=== PATIENT | female | born 1950 | race Two or more races ===

== ENCOUNTER 2017-12-07 22:42 | Emergency (ER) | payer MEDICARE, MEDICAID ==
[~2017-12-07] VITALS: Ht 157.5 cm; Wt 78.5 kg
[2017-12-07] MEDS ORDERED: diphenhdrAMINE HCL 25 MG CAP PO ONE ×2 (23:10→23:15)
[2017-12-07] MEDS ORDERED: cloNIDine HCL 0.1 MG TAB ONE (23:10)
[2017-12-07] MEDS ORDERED: cloNIDine HCL 0.1 MG TAB PO ONE (23:15)
[2017-12-08 00:09] LABS: Urine Bacteria FEW /hpf (None Seen); Urine Blood Negative /uL (Negative); Urine Specific Gravity 1.004 (1.001-1.035); Urine WBC <1 /hpf (0 - 5)
[2017-12-08 00:26] LABS: Basophils # (auto) 0 uL; Eosinophils # (auto) 0 uL; Eosinophils % (auto) 0.5 % (0.0-7.0); Hematocrit 41.3 % (36.0-46.0); Hemoglobin 14.2 g/dL (12.2-16.2); Lymphocytes % (auto) 26.6 % (10.0-50.0); Mean Corpuscular Hemoglobin 32.2 pg (28.0-32.0); Mean Corpuscular Hgb Conc. 34.4 g/dL (32.0-36.0); Mean Corpuscular Volume 93.6 fL (80.0-100.0); Monocytes # (auto) 0.3 uL; Neutrophils # (auto) 2.4 uL; Neutrophils % (auto) 63.9 % (37.0-80.0); Nucleated Red Blood Cells % 0.2 %; Platelet Count (auto) 129 10^3/uL (140-450); Red Blood Cells 4.41 10^6/uL (4.0-5.20); Red Cell Distribution Width 14.2 % (11.8-14.3); White Blood Cell 3.8 10^3/uL (4.4-10.8)
[2017-12-08 00:45] LABS: INR 0.92 (0.9-1.15); Partial Thromboplastin Time 28.2 sec (23.78-33.04); Prothrombin Time 9.9 sec (9.27-12.13)
[2017-12-08 02:01] LABS: Carbon Dioxide 24 mmol/L (21-32); Chloride 106 mmol/L (98-107); Potassium 3.4 mmol/L (3.5-5.1); Sodium 141 mmol/L (136-145)
[2017-12-08 02:02] LABS: Albumin 3.8 g/dL (3.4-5.0); Anion Gap 11 (5-15); Calcium 8.5 mg/dL (8.5-10.1); Glucose 188 mg/dL (74-106); Magnesium 2.2 mg/dL (1.6-2.6)
[2017-12-08 02:07] LABS: Alanine Aminotransferase 29 U/L (13-56); Alkaline Phosphatase 73 U/L (45-117); Aspartate Aminotransferase 20 U/L (15-37); BUN/Creatinine Ratio 22.6; Bilirubin, Total 0.4 mg/dL (0.2-1.0); Blood Urea Nitrogen 21 mg/dL (7-18); GFR African American 77 mL/min; GFR Non-African American 64 mL/min
[2017-12-08 05:05] VITALS: BP 115/71
[2017-12-11] MEDS ORDERED: diphenhdrAMINE HCL 25 MG CAP PO ONE (03:15)
== END 2017-12-08 04:27 | disposition home or self-care (01) ==
LOC: ER 22:55
DX: I16.0 Hypertensive urgency (principal); E11.65 Type 2 diabetes mellitus with hyperglycemia; E86.0 Dehydration; I10 Essential (primary) hypertension
CPT/HCPCS: 36415; 71045; 80053; 81001; 83735; 83880; 84484; 85025; 85379; 85610; 85730; 93005; 94761

== ENCOUNTER 2017-12-11 01:11 | Emergency (ER) | payer MEDICARE, MEDICAID ==
[~2017-12-11] VITALS: Ht 157.5 cm; Wt 78.5 kg
[2017-12-11] MEDS ORDERED: NIFEdipine 10 MG CAP PO ONE (01:45)
[2017-12-11] MEDS ORDERED: NIFEdipine 10 MG CAP ONE (01:47)
[2017-12-11] MEDS ORDERED: diphenhdrAMINE HCL 25 MG CAP PO ONE ×2 (03:08→03:15)
[2017-12-11 03:21] LABS: Basophils # (auto) 0 uL; Basophils % (auto) 0.4 % (0.0-2.0); Eosinophils # (auto) 0 uL; Eosinophils % (auto) 0.4 % (0.0-7.0); Hematocrit 46.7 % (36.0-46.0); Hemoglobin 16.5 g/dL (12.2-16.2); Lymphocytes # (auto) 1.2 uL; Lymphocytes % (auto) 17.8 % (10.0-50.0); Mean Corpuscular Hemoglobin 32.3 pg (28.0-32.0); Mean Corpuscular Hgb Conc. 35.3 g/dL (32.0-36.0); Mean Corpuscular Volume 91.4 fL (80.0-100.0); Monocytes # (auto) 0.4 uL; Monocytes % (auto) 5.6 % (0.0-12.0); Neutrophils # (auto) 5.1 uL; Neutrophils % (auto) 75.8 % (37.0-80.0); Platelet Count (auto) 153 10^3/uL (140-450); Red Blood Cells 5.11 10^6/uL (4.0-5.20); White Blood Cell 6.8 10^3/uL (4.4-10.8)
[2017-12-11 03:39] LABS: Alanine Aminotransferase 36 U/L (13-56); Albumin 4.5 g/dL (3.4-5.0); Anion Gap 12 (5-15); Aspartate Aminotransferase 34 U/L (15-37); Blood Urea Nitrogen 16 mg/dL (7-18); Calcium 9.9 mg/dL (8.5-10.1); Carbon Dioxide 25 mmol/L (21-32); Chloride 102 mmol/L (98-107); GFR African American 87 mL/min; GFR Non-African American 72 mL/min; Glucose 154 mg/dL (74-106); Magnesium 2.4 mg/dL (1.6-2.6); Potassium 3.9 mmol/L (3.5-5.1); Sodium 139 mmol/L (136-145)
[2017-12-11 03:44] LABS: Alkaline Phosphatase 80 U/L (45-117); Bilirubin, Total 0.7 mg/dL (0.2-1.0)
[2017-12-11 07:23] VITALS: BP 111/68
== END 2017-12-11 07:32 | disposition home or self-care (01) ==
LOC: ER 01:18
DX: I16.0 Hypertensive urgency (principal); E78.5 Hyperlipidemia, unspecified; Z88.1 Allergy status to other antibiotic agents
CPT/HCPCS: 36415; 80053; 83735; 83880; 84484; 85025; 93005

== ENCOUNTER 2018-06-19 14:37 | Emergency (ER) | payer MEDICARE, MEDICAID ==
[~2018-06-19] VITALS: Ht 157.5 cm; Wt 75.3 kg
[2018-06-19 14:48] VITALS: BP 133/73
[2018-06-19] MEDS ORDERED: SODIUM CHLORIDE 0.9% 2,000 ML IV ONE (15:56)
[2018-06-19 16:00] LABS: Urine WBC None Seen /hpf (0 - 5)
[2018-06-19 16:19] LABS: Urine Bacteria NONE SEEN /hpf (None Seen); Urine Blood Negative /uL (Negative); Urine Specific Gravity 1.002 (1.001-1.035)
[2018-06-19 16:37] LABS: Alanine Aminotransferase 34 U/L (13-56); Albumin 3.8 g/dL (3.4-5.0); Anion Gap 7 (5-15); Blood Urea Nitrogen 11 mg/dL (7-18); Calcium 8.7 mg/dL (8.5-10.1); Carbon Dioxide 29 mmol/L (21-32); Chloride 103 mmol/L (98-107); Glucose 90 mg/dL (74-106); Potassium 3.6 mmol/L (3.5-5.1); Sodium 139 mmol/L (136-145)
[2018-06-19 16:38] LABS: BUN/Creatinine Ratio 13.8; Bilirubin, Total 0.5 mg/dL (0.2-1.0); GFR African American 91 mL/min; GFR Non-African American 76 mL/min; Total Protein 8.1 g/dL (6.4-8.2)
[2018-06-19 16:39] LABS: INR 0.92 (0.9-1.15); Prothrombin Time 9.9 sec (9.27-12.13)
[2018-06-19 16:44] LABS: Alkaline Phosphatase 74 U/L (45-117); Aspartate Aminotransferase 35 U/L (15-37)
[2018-06-19 17:10] LABS: Basophils # (auto) 0.1 uL; Basophils % (auto) 1.3 % (0.0-2.0); Eosinophils # (auto) 0.1 uL; Eosinophils % (auto) 1.5 % (0.0-7.0); Hematocrit 46.9 % (36.0-46.0); Hemoglobin 16.3 g/dL (12.2-16.2); Lymphocytes # (auto) 1.9 uL; Lymphocytes % (auto) 42.5 % (10.0-50.0); Mean Corpuscular Hemoglobin 32.3 pg (28.0-32.0); Mean Corpuscular Hgb Conc. 34.8 g/dL (32.0-36.0); Mean Corpuscular Volume 92.9 fL (80.0-100.0); Monocytes # (auto) 0.8 uL; Monocytes % (auto) 17.3 % (0.0-12.0); Neutrophils # (auto) 1.7 uL; Neutrophils % (auto) 37.4 % (37.0-80.0); Nucleated Red Blood Cells % 0.8 %; Platelet Count (auto) 145 10^3/uL (140-450); Red Blood Cells 5.05 10^6/uL (4.0-5.20); Red Cell Distribution Width 14.2 % (11.8-14.3); White Blood Cell 4.5 10^3/uL (4.4-10.8)
== END 2018-06-19 17:44 | disposition home or self-care (01) ==
LOC: ER 14:52
DX: R11.2 Nausea with vomiting, unspecified (principal); R19.7 Diarrhea, unspecified; I10 Essential (primary) hypertension; E78.5 Hyperlipidemia, unspecified; R51 Headache; Z88.8 Allergy status to other drugs, medicaments and biological substances
CPT/HCPCS: 36415; 71046; 80053; 81001; 84484; 85025; 85610; 85730; 93005

== ENCOUNTER 2018-09-30 04:24 | Emergency (ER) | payer OTHER, MEDICAID ==
[~2018-09-30] VITALS: Ht 162.6 cm; Wt 95.3 kg
[~2018-09-30 04:24] MED LIST: ALLO300T2 PO; LISI-646 PO; OME20T PO; PROP20TA73 PO; SENN1TAB14 PO; SIMV-8 PO
[2018-09-30] MEDS ORDERED: cloNIDine HCL 0.1 MG TAB ONE (04:43)
[2018-09-30 10:02] VITALS: BP 159/100
[2018-09-30 10:52] LABS: Basophils # (auto) 0 uL; Basophils % (auto) 0.4 % (0.0-2.0); Eosinophils # (auto) 0 uL; Eosinophils % (auto) 0.5 % (0.0-7.0); Hematocrit 45.7 % (36.0-46.0); Hemoglobin 15.6 g/dL (12.2-16.2); Lymphocytes # (auto) 1.4 uL; Mean Corpuscular Hgb Conc. 34.1 g/dL (32.0-36.0); Monocytes # (auto) 0.2 uL; Monocytes % (auto) 5.4 % (0.0-12.0); Neutrophils # (auto) 2.9 uL; Neutrophils % (auto) 63.7 % (37.0-80.0); Nucleated Red Blood Cells % 0.1 %; Platelet Count (auto) 154 10^3/uL (140-450); Red Blood Cells 4.86 10^6/uL (4.0-5.20); Red Cell Distribution Width 14.1 % (11.8-14.3); White Blood Cell 4.6 10^3/uL (4.4-10.8)
[2018-09-30 11:06] LABS: Albumin 4.2 g/dL (3.4-5.0); Calcium 9.5 mg/dL (8.5-10.1); Potassium 3.7 mmol/L (3.5-5.1)
[2018-09-30 11:09] LABS: Bilirubin, Total 0.5 mg/dL (0.2-1.0); Total Protein 8.5 g/dL (6.4-8.2)
[2018-09-30] MEDS ORDERED: cloNIDine HCL 0.1 MG TAB PO ONE ×2 (12:15→12:30)
[2018-09-30] MEDS ORDERED: SODIUM CHLORIDE 0.9% 1,000 ML IV ONE (13:03)
[2018-09-30] MEDS ORDERED: IOHEXOL 350 MG/ML 100ML IJ ONE (13:15)
[2018-09-30 14:54] LABS: Urine WBC None Seen /hpf (0 - 5)
[2018-09-30 15:10] LABS: Urine Bacteria NONE SEEN /hpf (None Seen); Urine Blood Negative /uL (Negative); Urine Specific Gravity 1.007 (1.001-1.035)
== END 2018-09-30 14:52 | disposition home or self-care (01) ==
LOC: ER 04:24 → EDBD 04:24 → ER 14:52
DX: I10 Essential (primary) hypertension (principal); E78.5 Hyperlipidemia, unspecified; Z90.710 Acquired absence of both cervix and uterus; Z77.22 Contact with and (suspected) exposure to environmental tobacco smoke (acute) (chronic)
CPT/HCPCS: 36415; 71046; 71275; 80053; 81001; 85025; 93005; 99284; J7030; Q9967

== ENCOUNTER 2018-10-09 13:29 | Emergency (ER) | payer OTHER, MEDICAID ==
[~2018-10-09] VITALS: Ht 157.5 cm; Wt 68.9 kg
[2018-10-09 15:43] LABS: Basophils # (auto) 0 uL; Basophils % (auto) 0.5 % (0.0-2.0); Eosinophils # (auto) 0 uL; Eosinophils % (auto) 0.5 % (0.0-7.0); Hematocrit 46.8 % (36.0-46.0); Lymphocytes # (auto) 0.8 uL; Mean Corpuscular Hgb Conc. 34.1 g/dL (32.0-36.0); Mean Corpuscular Volume 93.7 fL (80.0-100.0); Monocytes # (auto) 0.3 uL; Monocytes % (auto) 6.4 % (0.0-12.0); Neutrophils # (auto) 3.8 uL; Neutrophils % (auto) 75.6 % (37.0-80.0); Nucleated Red Blood Cells % 0.1 %; Platelet Count (auto) 148 10^3/uL (140-450)
[2018-10-09 15:48] LABS: BUN/Creatinine Ratio 15.4; Calcium 9.4 mg/dL (8.5-10.1); Potassium 3.8 mmol/L (3.5-5.1)
[2018-10-09 15:57] LABS: Bilirubin, Total 0.6 mg/dL (0.2-1.0); Total Protein 8.1 g/dL (6.4-8.2)
[2018-10-09] MEDS ORDERED: cloNIDine HCL 0.1 MG TAB ONE (17:06)
[2018-10-09] MEDS ORDERED: cloNIDine HCL 0.1 MG TAB PO ONE (17:15)
[2018-10-09 17:57] VITALS: BP 168/88
== END 2018-10-09 17:59 | disposition home or self-care (01) ==
LOC: ER 13:32
DX: I10 Essential (primary) hypertension (principal); E78.00 Pure hypercholesterolemia, unspecified; Z79.899 Other long term (current) drug therapy; Z88.8 Allergy status to other drugs, medicaments and biological substances
CPT/HCPCS: 36415; 80053; 84484; 85025

== ENCOUNTER 2018-10-14 17:05 | Emergency (ER) | payer OTHER, MEDICAID ==
[~2018-10-14] VITALS: Ht 157.5 cm; Wt 73.9 kg
[2018-10-14 17:18] VITALS: BP 186/94
[2018-10-17] MEDS ORDERED: ASPI81TA27 PO (03:19)
[2018-10-17] MEDS ORDERED: METO25TA5 PO (03:19)
== END 2018-10-14 23:00 | disposition left against medical advice (07) ==
LOC: ER 17:12
DX: R03.0 Elevated blood-pressure reading, without diagnosis of hypertension (principal); Z53.21 Procedure and treatment not carried out due to patient leaving prior to being seen by health care provider

== ENCOUNTER 2018-10-16 01:55 | Inpatient (IN) | payer OTHER, MEDICAID | END 2018-10-20 13:06 | disposition home or self-care (01) | LOC: ER 01:55 → TELE-WESTW 10-17 02:31 → TELE 13:03 | DX: D49.7 Neoplasm of unspecified behavior of endocrine glands and other parts of nervous system (principal); E87.1 Hypo-osmolality and hyponatremia; G25.0 Essential tremor; K21.9 Gastro-esophageal reflux disease without esophagitis; E87.6 Hypokalemia; I10 Essential (primary) hypertension; E78.5 Hyperlipidemia, unspecified ==

== ENCOUNTER 2018-11-08 17:41 | Emergency (ER) | payer OTHER, MEDICAID ==
[~2018-11-08] VITALS: Ht 154.9 cm; Wt 63.5 kg
[~2018-11-08 17:41] MED LIST changes: +ASPI81TA27 PO; +METO25TA5 PO; -SIMV-8 PO
[2018-11-08 18:42] LABS: Basophils # (auto) 0 uL; Eosinophils # (auto) 0 uL; Eosinophils % (auto) 1.2 % (0.0-7.0); Hematocrit 41.8 % (36.0-46.0); Hemoglobin 14.2 g/dL (12.2-16.2); Lymphocytes # (auto) 1.2 uL; Lymphocytes % (auto) 29.7 % (10.0-50.0); Mean Corpuscular Hemoglobin 31.5 pg (28.0-32.0); Mean Corpuscular Hgb Conc. 34.1 g/dL (32.0-36.0); Mean Corpuscular Volume 92.4 fL (80.0-100.0); Monocytes # (auto) 0.3 uL; Monocytes % (auto) 7.3 % (0.0-12.0); Neutrophils # (auto) 2.5 uL; Neutrophils % (auto) 60.8 % (37.0-80.0); Nucleated Red Blood Cells % 0.1 %; Platelet Count (auto) 162 10^3/uL (140-450); Red Blood Cells 4.52 10^6/uL (4.0-5.20); Red Cell Distribution Width 13.5 % (11.8-14.3); White Blood Cell 4.1 10^3/uL (4.4-10.8)
[2018-11-08 18:55] LABS: Albumin 3.8 g/dL (3.4-5.0); Anion Gap 11 (5-15); Blood Urea Nitrogen 13 mg/dL (7-18); Calcium 8.7 mg/dL (8.5-10.1); Carbon Dioxide 27 mmol/L (21-32); Chloride 93 mmol/L (98-107); Glucose 111 mg/dL (74-106); Sodium 131 mmol/L (136-145)
[2018-11-08 18:59] LABS: Alanine Aminotransferase 24 U/L (13-56); Alkaline Phosphatase 66 U/L (45-117); Aspartate Aminotransferase 15 U/L (15-37); BUN/Creatinine Ratio 17.1; Bilirubin, Total 0.4 mg/dL (0.2-1.0); GFR African American 97 mL/min; GFR Non-African American 80 mL/min; Total Protein 7.1 g/dL (6.4-8.2)
[2018-11-08 19:20] LABS: Potassium 2.8 mmol/L (3.5-5.1)
[2018-11-08] MEDS ORDERED: PROMETHAZINE HCL 6.25 MG/5 ML ORAL SYRUP PO ONE (20:30)
[2018-11-08] MEDS ORDERED: POTASSIUM CHL 20 Meq TABLET PO ONE (20:30)
[2018-11-08 20:57] LABS: Urine Bacteria NONE SEEN /hpf (None Seen); Urine Blood Negative /uL (Negative); Urine Specific Gravity 1.005 (1.001-1.035); Urine WBC 1 /hpf (0 - 5)
[2018-11-09 01:20] VITALS: BP 117/72
== END 2018-11-09 01:34 | disposition home or self-care (01) ==
LOC: EDBD 17:41 → ER 17:48
DX: I10 Essential (primary) hypertension (principal); E78.5 Hyperlipidemia, unspecified; Z88.8 Allergy status to other drugs, medicaments and biological substances; Z88.6 Allergy status to analgesic agent; Z79.82 Long term (current) use of aspirin; Z79.899 Other long term (current) drug therapy
CPT/HCPCS: 36415; 70450; 71045; 80053; 81001; 84484; 85025

== ENCOUNTER 2018-11-09 12:35 | Emergency (ER) | payer OTHER, MEDICAID ==
[~2018-11-09] VITALS: Ht 157.5 cm; Wt 73.5 kg
[2018-11-09 13:31] LABS: Basophils # (auto) 0.1 uL; Eosinophils # (auto) 0 uL; Eosinophils % (auto) 0.9 % (0.0-7.0); Hemoglobin 15.2 g/dL (12.2-16.2); Lymphocytes # (auto) 1.1 uL; Lymphocytes % (auto) 30.2 % (10.0-50.0); Mean Corpuscular Hemoglobin 32.1 pg (28.0-32.0); Mean Corpuscular Hgb Conc. 34.4 g/dL (32.0-36.0); Mean Corpuscular Volume 93.2 fL (80.0-100.0); Monocytes # (auto) 0.3 uL; Monocytes % (auto) 8.9 % (0.0-12.0); Neutrophils # (auto) 2.1 uL; Nucleated Red Blood Cells % 0.2 %; Platelet Count (auto) 185 10^3/uL (140-450); Red Blood Cells 4.73 10^6/uL (4.0-5.20); Red Cell Distribution Width 14.2 % (11.8-14.3); White Blood Cell 3.7 10^3/uL (4.4-10.8)
[2018-11-09 13:32] LABS: Chloride 97 mmol/L (98-107); Potassium 4.3 mmol/L (3.5-5.1); Sodium 134 mmol/L (136-145)
[2018-11-09 13:35] LABS: Anion Gap 6 (5-15); Blood Urea Nitrogen 15 mg/dL (7-18); Calcium 9.4 mg/dL (8.5-10.1); Carbon Dioxide 31 mmol/L (21-32); Glucose 140 mg/dL (74-106); Magnesium 2.3 mg/dL (1.6-2.6)
[2018-11-09 13:41] LABS: Alanine Aminotransferase 26 U/L (13-56); Alkaline Phosphatase 72 U/L (45-117); Aspartate Aminotransferase 14 U/L (15-37); BUN/Creatinine Ratio 15.5; Bilirubin, Total 0.3 mg/dL (0.2-1.0); GFR African American 73 mL/min; GFR Non-African American 61 mL/min; Total Protein 7.9 g/dL (6.4-8.2)
[2018-11-09 16:05] VITALS: BP 142/77
== END 2018-11-09 16:12 | disposition home or self-care (01) ==
LOC: EDBD 12:35 → ER 12:43
DX: I10 Essential (primary) hypertension (principal); G20 Parkinson's disease; G44.209 Tension-type headache, unspecified, not intractable; D49.7 Neoplasm of unspecified behavior of endocrine glands and other parts of nervous system; E78.5 Hyperlipidemia, unspecified; Z88.6 Allergy status to analgesic agent; Z88.8 Allergy status to other drugs, medicaments and biological substances; Z79.82 Long term (current) use of aspirin
CPT/HCPCS: 36415; 80053; 83735; 84484; 85025; 93005

== ENCOUNTER 2018-12-03 17:45 | Emergency (ER) | payer OTHER, MEDICAID ==
[~2018-12-03] VITALS: Ht 157.5 cm; Wt 72.6 kg
[2018-12-03 18:49] LABS: Basophils # (auto) 0 uL; Basophils % (auto) 0.9 % (0.0-2.0); Eosinophils # (auto) 0.1 uL; Eosinophils % (auto) 1.3 % (0.0-7.0); Hematocrit 42.6 % (36.0-46.0); Hemoglobin 14.8 g/dL (12.2-16.2); Lymphocytes # (auto) 1.1 uL; Lymphocytes % (auto) 26.1 % (10.0-50.0); Mean Corpuscular Hemoglobin 32.1 pg (28.0-32.0); Mean Corpuscular Hgb Conc. 34.6 g/dL (32.0-36.0); Mean Corpuscular Volume 92.6 fL (80.0-100.0); Monocytes # (auto) 0.3 uL; Monocytes % (auto) 7.2 % (0.0-12.0); Neutrophils # (auto) 2.8 uL; Neutrophils % (auto) 64.5 % (37.0-80.0); Nucleated Red Blood Cells % 0.1 %; Platelet Count (auto) 164 10^3/uL (140-450); Red Cell Distribution Width 14.1 % (11.8-14.3); White Blood Cell 4.4 10^3/uL (4.4-10.8)
[2018-12-03 19:04] LABS: Alanine Aminotransferase 31 U/L (13-56); Albumin 3.9 g/dL (3.4-5.0); Anion Gap 10 (5-15); Blood Urea Nitrogen 18 mg/dL (7-18); Carbon Dioxide 27 mmol/L (21-32); Chloride 100 mmol/L (98-107); Glucose 111 mg/dL (74-106); Magnesium 2.7 mg/dL (1.6-2.6); Sodium 137 mmol/L (136-145)
[2018-12-03 19:09] LABS: Alkaline Phosphatase 75 U/L (45-117); Aspartate Aminotransferase 23 U/L (15-37); BUN/Creatinine Ratio 19.6; Bilirubin, Total 0.4 mg/dL (0.2-1.0); GFR African American 78 mL/min; GFR Non-African American 64 mL/min; Total Protein 7.7 g/dL (6.4-8.2)
[2018-12-03 20:08] VITALS: BP 130/98
== END 2018-12-03 20:09 | disposition home or self-care (01) ==
LOC: ER 17:45
DX: I16.0 Hypertensive urgency (principal); R07.89 Other chest pain; M19.90 Unspecified osteoarthritis, unspecified site; M10.9 Gout, unspecified; E78.5 Hyperlipidemia, unspecified; I10 Essential (primary) hypertension; Z88.8 Allergy status to other drugs, medicaments and biological substances; Z79.82 Long term (current) use of aspirin; Z79.899 Other long term (current) drug therapy
CPT/HCPCS: 36415; 71046; 80053; 83735; 84484; 85025; 93005; 94761

== ENCOUNTER 2019-01-01 23:14 | Emergency (ER) | payer OTHER, MEDICAID ==
[~2019-01-01] VITALS: Ht 157.5 cm; Wt 72.6 kg
[2019-01-01] MEDS ORDERED: cloNIDine HCL 0.1 MG TAB PO ONE (23:45)
[2019-01-01 23:55] LABS: Basophils # (auto) 0 uL; Basophils % (auto) 0.8 % (0.0-2.0); Eosinophils # (auto) 0.1 uL; Eosinophils % (auto) 0.9 % (0.0-7.0); Hematocrit 43.9 % (36.0-46.0); Hemoglobin 15.2 g/dL (12.2-16.2); Lymphocytes # (auto) 1.2 uL; Lymphocytes % (auto) 21.1 % (10.0-50.0); Mean Corpuscular Hemoglobin 31.9 pg (28.0-32.0); Mean Corpuscular Hgb Conc. 34.6 g/dL (32.0-36.0); Mean Corpuscular Volume 92.1 fL (80.0-100.0); Monocytes # (auto) 0.2 uL; Monocytes % (auto) 4.1 % (0.0-12.0); Neutrophils # (auto) 4.3 uL; Neutrophils % (auto) 73.1 % (37.0-80.0); Nucleated Red Blood Cells % 0.1 %; Platelet Count (auto) 169 10^3/uL (140-450); Red Blood Cells 4.77 10^6/uL (4.0-5.20); Red Cell Distribution Width 13.5 % (11.8-14.3); White Blood Cell 5.9 10^3/uL (4.4-10.8)
[2019-01-02 00:10] LABS: INR < 0.93 (0.9-1.15); Partial Thromboplastin Time 28.5 sec (23.64-32.05)
[2019-01-02 00:16] LABS: Anion Gap 12 (5-15); Blood Urea Nitrogen 10 mg/dL (7-18); Calcium 9.1 mg/dL (8.5-10.1); Carbon Dioxide 27 mmol/L (21-32); Chloride 93 mmol/L (98-107); Magnesium 2.4 mg/dL (1.6-2.6); Potassium 3.6 mmol/L (3.5-5.1); Sodium 132 mmol/L (136-145)
[2019-01-02 00:19] LABS: Alanine Aminotransferase 22 U/L (13-56); Aspartate Aminotransferase 18 U/L (15-37); BUN/Creatinine Ratio 12.3; GFR African American 90 mL/min; GFR Non-African American 75 mL/min; Glucose 126 mg/dL (74-106)
[2019-01-02 00:24] LABS: Alkaline Phosphatase 65 U/L (45-117); Bilirubin, Total 0.5 mg/dL (0.2-1.0); Total Protein 8.1 g/dL (6.4-8.2)
[2019-01-02 00:46] LABS: Urine WBC None Seen /hpf (0 - 5)
[2019-01-02 01:12] LABS: Urine Bacteria FEW /hpf (None Seen); Urine Blood Negative /uL (Negative); Urine Specific Gravity 1.007 (1.001-1.035)
[2019-01-02 08:46] VITALS: BP 117/72
== END 2019-01-02 08:47 | disposition home or self-care (01) ==
LOC: ER 23:26
DX: I16.0 Hypertensive urgency (principal); I10 Essential (primary) hypertension; E78.5 Hyperlipidemia, unspecified; M19.90 Unspecified osteoarthritis, unspecified site; R51 Headache; Z88.8 Allergy status to other drugs, medicaments and biological substances; Z79.82 Long term (current) use of aspirin; Z79.899 Other long term (current) drug therapy
CPT/HCPCS: 36415; 70450; 71046; 80053; 81001; 83735; 83880; 84484; 85025; 85610; 85730; 93005

== ENCOUNTER 2019-01-22 20:42 | Emergency (ER) | payer OTHER, MEDICAID ==
[~2019-01-22] VITALS: Ht 157.5 cm; Wt 73.9 kg
[~2019-01-22 20:42] MED LIST changes: +ASPI-404 PO; -ASPI81TA27 PO
[2019-01-22] MEDS ORDERED: cloNIDine HCL 0.1 MG TAB PO ONE (21:15)
[2019-01-22 21:28] LABS: Basophils # (auto) 0 uL; Basophils % (auto) 0.6 % (0.0-2.0); Eosinophils # (auto) 0.1 uL; Hematocrit 41.4 % (36.0-46.0); Hemoglobin 14.5 g/dL (12.2-16.2); Lymphocytes # (auto) 1.2 uL; Lymphocytes % (auto) 24.3 % (10.0-50.0); Mean Corpuscular Hemoglobin 32.6 pg (28.0-32.0); Monocytes # (auto) 0.3 uL; Monocytes % (auto) 5.5 % (0.0-12.0); Neutrophils # (auto) 3.4 uL; Neutrophils % (auto) 68.6 % (37.0-80.0); Nucleated Red Blood Cells % 0.1 %; Platelet Count (auto) 180 10^3/uL (140-450); Red Blood Cells 4.45 10^6/uL (4.0-5.20); Red Cell Distribution Width 13.9 % (11.8-14.3); White Blood Cell 4.9 10^3/uL (4.4-10.8)
[2019-01-22 21:36] LABS: INR < 0.93 (0.9-1.15); Partial Thromboplastin Time 27.7 sec (23.64-32.05)
[2019-01-22 21:38] LABS: Albumin 4.1 g/dL (3.4-5.0); Anion Gap 8 (5-15); Blood Urea Nitrogen 13 mg/dL (7-18); Calcium 9.4 mg/dL (8.5-10.1); Carbon Dioxide 28 mmol/L (21-32); Chloride 95 mmol/L (98-107); Glucose 116 mg/dL (74-106); Magnesium 2.3 mg/dL (1.6-2.6); Potassium 3.2 mmol/L (3.5-5.1); Sodium 131 mmol/L (136-145)
[2019-01-22 21:44] LABS: Alanine Aminotransferase 23 U/L (13-56); Alkaline Phosphatase 78 U/L (45-117); Aspartate Aminotransferase 18 U/L (15-37); BUN/Creatinine Ratio 16.7; Bilirubin, Total 0.5 mg/dL (0.2-1.0); GFR African American 94 mL/min; GFR Non-African American 78 mL/min; Total Protein 7.8 g/dL (6.4-8.2)
[2019-01-23 01:05] VITALS: BP 127/74
[2019-01-23] MEDS ORDERED: ACETAMINOPHEN 325 MG TAB PO ONE (02:45)
== END 2019-01-23 02:59 | disposition home or self-care (01) ==
LOC: ER 20:43
DX: I10 Essential (primary) hypertension (principal); R51 Headache; M19.90 Unspecified osteoarthritis, unspecified site; E78.5 Hyperlipidemia, unspecified; Z79.82 Long term (current) use of aspirin; Z79.899 Other long term (current) drug therapy; Z88.5 Allergy status to narcotic agent; Z88.8 Allergy status to other drugs, medicaments and biological substances
CPT/HCPCS: 36415; 70450; 71046; 80053; 83735; 83880; 84484; 85025; 85610; 85730; 93005

== ENCOUNTER 2019-01-27 17:14 | Emergency (ER) | payer OTHER, MEDICAID ==
[~2019-01-27] VITALS: Ht 157.5 cm; Wt 73.0 kg
[~2019-01-27 17:14] MED LIST changes: -ASPI-404 PO; +ASPI81TA27 PO
[2019-01-27 18:45] VITALS: BP 157/91
[2019-01-27] MEDS ORDERED: diphenhdrAMINE HCL 50 MG/1 ML VL IM ONE (19:30)
[2019-01-27] MEDS ORDERED: MORPHINE SULF INJ 2 MG/ML SYRINGE 1ML IM ONE (19:30)
[2019-01-27] MEDS ORDERED: AMOXICILLIN/CLAVUL 875 MG TAB PO ONE (19:30)
[2019-01-27] MEDS ORDERED: KETOROLAC TROMETH 60MG/2ML VIAL IM ONE (19:30)
[2019-01-27] MEDS ORDERED: cloNIDine HCL 0.1 MG TAB PO ONE (20:15)
== END 2019-01-27 20:40 | disposition home or self-care (01) ==
LOC: ER 17:14
DX: J01.20 Acute ethmoidal sinusitis, unspecified (principal); M19.90 Unspecified osteoarthritis, unspecified site; M10.9 Gout, unspecified; E78.5 Hyperlipidemia, unspecified; I10 Essential (primary) hypertension
CPT/HCPCS: 70450; 93005; 96372; 99284; J1200; J1885; J2270

== ENCOUNTER 2019-03-05 13:47 | Emergency (ER) | payer OTHER, MEDICAID ==
[~2019-03-05] VITALS: Ht 157.5 cm; Wt 70.8 kg
[~2019-03-05 13:47] MED LIST changes: +ASPI-404 PO; -ASPI81TA27 PO
[2019-03-05] MEDS ORDERED: KETOROLAC TROMETH 30 MG/ML 1ML VIAL IM ONE (16:45)
[2019-03-05 17:03] VITALS: BP 158/85
== END 2019-03-05 17:22 | disposition home or self-care (01) ==
LOC: ER 13:47
DX: R51 Headache (principal); M19.90 Unspecified osteoarthritis, unspecified site; M10.9 Gout, unspecified; E78.5 Hyperlipidemia, unspecified; F32.9 Major depressive disorder, single episode, unspecified; I10 Essential (primary) hypertension
CPT/HCPCS: 70450; 96372; 99284; J1885

== ENCOUNTER 2019-05-31 16:09 | Emergency (ER) | payer OTHER, MEDICAID ==
[~2019-05-31] VITALS: Ht 157.5 cm; Wt 69.9 kg
[2019-05-31 16:25] VITALS: BP 155/79
[2019-05-31] MEDS ORDERED: ACETAMINOPHEN 325 MG TAB PO ONE (17:45)
== END 2019-05-31 18:01 | disposition home or self-care (01) ==
LOC: ER 16:09
DX: R51 Headache (principal); F41.9 Anxiety disorder, unspecified; F32.9 Major depressive disorder, single episode, unspecified; E78.5 Hyperlipidemia, unspecified; I10 Essential (primary) hypertension
CPT/HCPCS: 70450

== ENCOUNTER 2019-06-25 22:14 | Emergency (ER) | payer OTHER, MEDICAID ==
[~2019-06-25] VITALS: Ht 152.4 cm; Wt 73.5 kg
[2019-06-26 00:08] LABS: Basophils # (auto) 0.1 uL; Basophils % (auto) 1.1 % (0.0-2.0); Eosinophils # (auto) 0 uL; Eosinophils % (auto) 0.1 % (0.0-7.0); Hematocrit 41.3 % (36.0-46.0); Hemoglobin 14.6 g/dL (12.2-16.2); Lymphocytes # (auto) 1.3 uL; Lymphocytes % (auto) 21.4 % (10.0-50.0); Mean Corpuscular Hemoglobin 32.1 pg (28.0-32.0); Mean Corpuscular Hgb Conc. 35.2 g/dL (32.0-36.0); Monocytes # (auto) 0.5 uL; Monocytes % (auto) 8.1 % (0.0-12.0); Neutrophils # (auto) 4.3 uL; Neutrophils % (auto) 69.3 % (37.0-80.0); Platelet Count (auto) 162 10^3/uL (140-450); Red Blood Cells 4.54 10^6/uL (4.0-5.20); White Blood Cell 6.3 10^3/uL (4.4-10.8)
[2019-06-26 00:13] LABS: Urine Bacteria FEW /hpf (None Seen); Urine Blood Negative /uL (Negative); Urine Specific Gravity 1.006 (1.001-1.035); Urine WBC <1 /hpf (0 - 5)
[2019-06-26 00:22] VITALS: BP 145/87
[2019-06-26 00:30] LABS: Albumin 3.8 g/dL (3.4-5.0); Potassium 4.4 mmol/L (3.5-5.1)
[2019-06-26] MEDS ORDERED: ACETAMINOPHEN 325 MG TAB PO ONE (00:30)
[2019-06-26 00:32] LABS: BUN/Creatinine Ratio 18.3
[2019-06-26 00:35] LABS: Bilirubin, Total 0.5 mg/dL (0.2-1.0); Total Protein 7.6 g/dL (6.4-8.2)
== END 2019-06-26 01:45 | disposition home or self-care (01) ==
LOC: EDBD 22:14 → ER 22:18
DX: R51 Headache (principal); M54.5 Low back pain; K59.00 Constipation, unspecified; R11.0 Nausea; M19.90 Unspecified osteoarthritis, unspecified site; M10.9 Gout, unspecified; E78.00 Pure hypercholesterolemia, unspecified; I10 Essential (primary) hypertension
CPT/HCPCS: 36415; 74176; 80053; 81001; 85025

== ENCOUNTER 2020-01-04 21:08 | Emergency (ER) | payer OTHER, MEDICAID ==
[~2020-01-04] VITALS: Ht 157.5 cm; Wt 72.1 kg
[~2020-01-04 21:08] MED LIST changes: -ASPI-404 PO; +ASPI-543 PO
[2020-01-04] MEDS ORDERED: ACETAMINOPHEN 325 MG TAB PO ONE (23:15)
[2020-01-04 23:33] LABS: Basophils # (auto) 0 10 ^3/uL (0-0.2); Basophils % (auto) 0.7 % (0.0-2.0); Eosinophils # (auto) 0.1 10 ^3/uL (0-0.8); Eosinophils % (auto) 1.4 % (0.0-7.0); Hematocrit 40.2 % (36.0-46.0); Lymphocytes # (auto) 1.6 10 ^3/uL (0.4-5.4); Lymphocytes % (auto) 39.7 % (10.0-50.0); Mean Corpuscular Hemoglobin 31.8 pg (28.0-32.0); Mean Corpuscular Hgb Conc. 34.9 g/dL (32.0-36.0); Mean Corpuscular Volume 91.3 fL (80.0-100.0); Monocytes # (auto) 0.4 10 ^3/uL (0-1.3); Monocytes % (auto) 9.8 % (0.0-12.0); Neutrophils # (auto) 1.9 10 ^3/uL (1.6-8.6); Neutrophils % (auto) 48.4 % (37.0-80.0); Nucleated Red Blood Cells % 0.1 %; Platelet Count (auto) 166 10^3/uL (140-450); Red Blood Cells 4.41 10^6/uL (4.0-5.20); Red Cell Distribution Width 13.6 % (11.8-14.3)
[2020-01-04 23:45] LABS: Alanine Aminotransferase 27 U/L (13-56); Albumin 3.7 g/dL (3.4-5.0); Anion Gap 8 (5-15); Aspartate Aminotransferase 19 U/L (15-37); BUN/Creatinine Ratio 20.5; Blood Urea Nitrogen 16 mg/dL (7-18); Calcium 8.7 mg/dL (8.5-10.1); Carbon Dioxide 29 mmol/L (21-32); Chloride 94 mmol/L (98-107); GFR African American 94 mL/min; GFR Non-African American 78 mL/min; Glucose 105 mg/dL (74-106); Magnesium 2.3 mg/dL (1.6-2.6); Potassium 3.2 mmol/L (3.5-5.1); Sodium 131 mmol/L (136-145)
[2020-01-04 23:48] LABS: INR 0.97 (0.9-1.15); Partial Thromboplastin Time 26.4 sec (23.64-32.05)
[2020-01-04 23:49] LABS: Alkaline Phosphatase 73 U/L (45-117); Bilirubin, Total 0.7 mg/dL (0.2-1.0); Total Protein 7.6 g/dL (6.4-8.2)
[2020-01-05 01:18] LABS: Urine Bacteria NONE SEEN /hpf (None Seen); Urine Blood Negative /uL (Negative); Urine Specific Gravity 1.007 (1.001-1.035); Urine WBC 45 /hpf (0 - 5)
[2020-01-05] MEDS ORDERED: levoFLOXacin 500 MG TAB PO ONE (02:15)
[2020-01-05] MEDS ORDERED: POTASSIUM EFFERVESENT TAB 25 MEQ PO ONE (02:15)
[2020-01-05 03:58] VITALS: BP 105/60
== END 2020-01-05 04:13 | disposition home or self-care (01) ==
LOC: ER 21:08
DX: I10 Essential (primary) hypertension (principal); R51 Headache; R00.1 Bradycardia, unspecified; M19.90 Unspecified osteoarthritis, unspecified site; M10.9 Gout, unspecified; E78.5 Hyperlipidemia, unspecified
CPT/HCPCS: 36415; 70450; 71045; 80053; 81001; 83735; 83880; 84484; 85025; 85610; 85730; 93005

== ENCOUNTER 2020-01-10 09:59 | Emergency (ER) | payer OTHER, MEDICAID ==
[~2020-01-10] VITALS: Ht 157.5 cm; Wt 70.3 kg
[~2020-01-10 09:59] MED LIST changes: +ASPI-404 PO; -ASPI-543 PO
[2020-01-10] MEDS ORDERED: SODIUM CHLORIDE 0.9% 1,000 ML IV ONE ×2 (10:08)
[2020-01-10 10:27] LABS: Basophils # (auto) 0.1 10 ^3/uL (0-0.2); Eosinophils # (auto) 0.1 10 ^3/uL (0-0.8); Eosinophils % (auto) 1.5 % (0.0-7.0); Hematocrit 43.8 % (36.0-46.0); Hemoglobin 15.2 g/dL (12.2-16.2); Lymphocytes # (auto) 1.2 10 ^3/uL (0.4-5.4); Lymphocytes % (auto) 28.9 % (10.0-50.0); Mean Corpuscular Hemoglobin 32.3 pg (28.0-32.0); Mean Corpuscular Hgb Conc. 34.8 g/dL (32.0-36.0); Mean Corpuscular Volume 92.7 fL (80.0-100.0); Monocytes # (auto) 0.4 10 ^3/uL (0-1.3); Neutrophils # (auto) 2.5 10 ^3/uL (1.6-8.6); Neutrophils % (auto) 58.6 % (37.0-80.0); Nucleated Red Blood Cells % 0.1 %; Platelet Count (auto) 168 10^3/uL (140-450); Red Blood Cells 4.72 10^6/uL (4.0-5.20); Red Cell Distribution Width 14.1 % (11.8-14.3); White Blood Cell 4.3 10^3/uL (4.4-10.8)
[2020-01-10 10:45] LABS: Urine Bacteria NONE SEEN /hpf (None Seen); Urine Blood Negative /uL (Negative); Urine Specific Gravity 1.007 (1.001-1.035); Urine WBC 3 /hpf (0 - 5)
[2020-01-10 10:48] LABS: Albumin 4.1 g/dL (3.4-5.0); Anion Gap 9 (5-15); Blood Urea Nitrogen 11 mg/dL (7-18); Carbon Dioxide 27 mmol/L (21-32); Chloride 97 mmol/L (98-107); Glucose 107 mg/dL (74-106); Lipase 122 U/L (73-393); Potassium 3.5 mmol/L (3.5-5.1); Sodium 133 mmol/L (136-145)
[2020-01-10 10:52] LABS: BUN/Creatinine Ratio 13.8; GFR African American 91 mL/min
[2020-01-10 10:53] LABS: Alanine Aminotransferase 32 U/L (13-56); Alkaline Phosphatase 66 U/L (45-117); Aspartate Aminotransferase 30 U/L (15-37); Bilirubin, Total 0.9 mg/dL (0.2-1.0); GFR Non-African American 75 mL/min; Total Protein 8.1 g/dL (6.4-8.2)
[2020-01-10 12:13] VITALS: BP 124/66
== END 2020-01-10 12:15 | disposition home or self-care (01) ==
LOC: ER 09:59
DX: N39.0 Urinary tract infection, site not specified (principal); I10 Essential (primary) hypertension; R10.9 Unspecified abdominal pain; M19.90 Unspecified osteoarthritis, unspecified site; M10.9 Gout, unspecified; E78.5 Hyperlipidemia, unspecified; Z88.5 Allergy status to narcotic agent; Z88.8 Allergy status to other drugs, medicaments and biological substances
CPT/HCPCS: 36415; 71045; 80053; 81001; 83690; 84484; 85025; 93005

== ENCOUNTER → 2020-01-17 | Emergency (ER) | payer OTHER, MEDICAID ==
[~2020-01-17] VITALS: Ht 157.5 cm; Wt 69.9 kg
[~2020-01-17] MED LIST changes: +HYDROcodone-ACET 10/325MG TAB PO ONE; +cloNIDine HCL 0.1 MG TAB PO ONE
[2020-01-17 12:09] LABS: Basophils # (auto) 0 10 ^3/uL (0-0.2); Basophils % (auto) 0.9 % (0.0-2.0); Eosinophils # (auto) 0 10 ^3/uL (0-0.8); Eosinophils % (auto) 0.5 % (0.0-7.0); Hematocrit 41.4 % (36.0-46.0); Hemoglobin 14.6 g/dL (12.2-16.2); Lymphocytes % (auto) 23.7 % (10.0-50.0); Mean Corpuscular Hemoglobin 32.4 pg (28.0-32.0); Mean Corpuscular Hgb Conc. 35.2 g/dL (32.0-36.0); Mean Corpuscular Volume 91.9 fL (80.0-100.0); Monocytes # (auto) 0.4 10 ^3/uL (0-1.3); Monocytes % (auto) 8.6 % (0.0-12.0); Neutrophils # (auto) 2.8 10 ^3/uL (1.6-8.6); Neutrophils % (auto) 66.3 % (37.0-80.0); Platelet Count (auto) 154 10^3/uL (140-450); White Blood Cell 4.2 10^3/uL (4.4-10.8)
[2020-01-17 12:29] LABS: Albumin 3.9 g/dL (3.4-5.0); Anion Gap 7 (5-15); Blood Urea Nitrogen 12 mg/dL (7-18); Calcium 8.9 mg/dL (8.5-10.1); Carbon Dioxide 28 mmol/L (21-32); Chloride 94 mmol/L (98-107); Glucose 98 mg/dL (74-106); Potassium 3.4 mmol/L (3.5-5.1); Sodium 129 mmol/L (136-145)
[2020-01-17 12:35] LABS: Alanine Aminotransferase 31 U/L (13-56); Alkaline Phosphatase 76 U/L (45-117); Aspartate Aminotransferase 20 U/L (15-37); BUN/Creatinine Ratio 16.9; Bilirubin, Total 0.6 mg/dL (0.2-1.0); GFR African American 104 mL/min; GFR Non-African American 86 mL/min; Total Protein 7.8 g/dL (6.4-8.2)
[2020-01-17 18:35] VITALS: BP 118/72
== END | disposition home or self-care (01) ==
LOC: ER 10:44
DX: I10 Essential (primary) hypertension (principal); F41.9 Anxiety disorder, unspecified; R51 Headache; E78.5 Hyperlipidemia, unspecified; Z88.8 Allergy status to other drugs, medicaments and biological substances
CPT/HCPCS: 36415; 70450; 80053; 84484; 85025; 93005

== ENCOUNTER 2020-10-04 10:37 | Emergency (ER) | payer OTHER, MEDICAID ==
[~2020-10-04] VITALS: Ht 157.5 cm; Wt 70.8 kg
[~2020-10-04 10:37] MED LIST changes: -ASPI-404 PO; +ASPI-543 PO; -HYDROcodone-ACET 10/325MG TAB PO ONE; -cloNIDine HCL 0.1 MG TAB PO ONE
[2020-10-04 10:38] VITALS: BP 132/76
[2020-10-04] MEDS ORDERED: ACETAMINOPHEN 500 MG TAB PO ONE (11:15)
[2020-10-04 11:28] LABS: Urine Bacteria NONE SEEN /hpf (None Seen); Urine Blood Negative /uL (Negative); Urine Hyaline Cast FEW /lpf (0 - 2); Urine Specific Gravity 1.018 (1.001-1.035); Urine WBC 9 /hpf (0 - 5)
[2020-10-04 12:00] LABS: Basophils # (auto) 0 10 ^3/uL (0-0.2); Basophils % (auto) 0.6 % (0.0-2.0); Eosinophils # (auto) 0 10 ^3/uL (0-0.8); Eosinophils % (auto) 0.1 % (0.0-7.0); Hematocrit 41.9 % (36.0-46.0); Hemoglobin 14.7 g/dL (12.2-16.2); Lymphocytes # (auto) 0.2 10 ^3/uL (0.4-5.4); Lymphocytes % (auto) 4.4 % (10.0-50.0); Mean Corpuscular Hgb Conc. 35.1 g/dL (32.0-36.0); Mean Corpuscular Volume 91.1 fL (80.0-100.0); Monocytes # (auto) 0.2 10 ^3/uL (0-1.3); Monocytes % (auto) 4.2 % (0.0-12.0); Neutrophils % (auto) 90.7 % (37.0-80.0); Nucleated Red Blood Cells % 0.3 %; Platelet Count (auto) 139 10^3/uL (140-450); Red Cell Distribution Width 14.2 % (11.8-14.3); White Blood Cell 5.5 10^3/uL (4.4-10.8)
[2020-10-04] MEDS ORDERED: cefTRIAXone SOD 1,000 MG VL IM ONE (12:15)
[2020-10-04 12:19] LABS: Anion Gap 9 (5-15); Blood Urea Nitrogen 16 mg/dL (7-18); Carbon Dioxide 28 mmol/L (21-32); Chloride 97 mmol/L (98-107); Glucose 120 mg/dL (74-106); Potassium 3.3 mmol/L (3.5-5.1); Sodium 134 mmol/L (136-145)
[2020-10-04 12:25] LABS: Alanine Aminotransferase 28 U/L (13-56); Alkaline Phosphatase 62 U/L (45-117); Aspartate Aminotransferase 22 U/L (15-37); BUN/Creatinine Ratio 18.8; Bilirubin, Total 0.8 mg/dL (0.2-1.0); GFR African American 85 mL/min; GFR Non-African American 70 mL/min; Total Protein 8.1 g/dL (6.4-8.2)
== END 2020-10-04 13:03 | disposition home or self-care (01) ==
LOC: ER 10:37
DX: T88.1XXA Other complications following immunization, not elsewhere classified, initial encounter (principal); N39.0 Urinary tract infection, site not specified; R07.9 Chest pain, unspecified; M54.5 Low back pain; E78.5 Hyperlipidemia, unspecified; I10 Essential (primary) hypertension; Z88.6 Allergy status to analgesic agent
CPT/HCPCS: 36415; 71046; 80053; 81001; 84484; 85025; 96372; 99284; J0696

== ENCOUNTER 2020-12-24 14:56 | Emergency (ER) | payer OTHER, MEDICAID ==
[~2020-12-24] VITALS: Ht 157.5 cm; Wt 71.2 kg
[~2020-12-24 14:56] MED LIST changes: -LISI-646 PO; +LISI20TA28 PO
[2020-12-24 18:18] LABS: Basophils # (auto) 0 10 ^3/uL (0-0.2); Basophils % (auto) 0.3 % (0.0-2.0); Eosinophils # (auto) 0 10 ^3/uL (0-0.8); Hematocrit 39.8 % (36.0-46.0); Hemoglobin 14.2 g/dL (12.2-16.2); Lymphocytes # (auto) 1.5 10 ^3/uL (0.4-5.4); Mean Corpuscular Hemoglobin 32.4 pg (28.0-32.0); Mean Corpuscular Hgb Conc. 35.6 g/dL (32.0-36.0); Mean Corpuscular Volume 90.9 fL (80.0-100.0); Monocytes # (auto) 0.4 10 ^3/uL (0-1.3); Monocytes % (auto) 13.1 % (0.0-12.0); Neutrophils # (auto) 1.5 10 ^3/uL (1.6-8.6); Neutrophils % (auto) 42.6 % (37.0-80.0); Nucleated Red Blood Cells % 0.6 %; Platelet Count (auto) 138 10^3/uL (140-450); Red Blood Cells 4.38 10^6/uL (4.0-5.20); Red Cell Distribution Width 13.6 % (11.8-14.3); White Blood Cell 3.4 10^3/uL (4.4-10.8)
[2020-12-24 18:29] LABS: Albumin 3.7 g/dL (3.4-5.0); Calcium 8.4 mg/dL (8.5-10.1); Potassium 3.4 mmol/L (3.5-5.1)
[2020-12-24 18:35] LABS: BUN/Creatinine Ratio 13.2; Bilirubin, Total 0.5 mg/dL (0.2-1.0); Total Protein 7.5 g/dL (6.4-8.2)
[2020-12-24 18:53] LABS: INR 0.97 (0.9-1.15); Partial Thromboplastin Time 31.7 sec (23.0-31.2)
[2020-12-24 23:30] VITALS: BP 138/82
[2020-12-25] MEDS ORDERED: ACETAMINOPHEN 325 MG TAB PO ONE
[2020-12-25] MEDS ORDERED: SODIUM CHLORIDE 0.9% 1,000 ML IV ONE
[2020-12-25] MEDS ORDERED: POTASSIUM CHL 20 Meq TABLET PO ONE
== END 2020-12-25 00:44 | disposition home or self-care (01) ==
LOC: ER 14:56
DX: R51.9 Headache, unspecified (principal); E86.0 Dehydration; D72.0 Genetic anomalies of leukocytes
CPT/HCPCS: 36415; 70450; 80053; 84484; 85025; 85610; 85730; 93005; 96360; 99285; J7030

== ENCOUNTER 2021-02-01 21:08 | Emergency (ER) | payer OTHER, MEDICAID ==
[~2021-02-01] VITALS: Ht 157.5 cm; Wt 70.8 kg
[2021-02-01 21:10] VITALS: BP 155/72
[2021-02-02] MEDS ORDERED: IBUPROFEN 600 MG TAB PO ONE (00:15)
[2021-02-02] MEDS ORDERED: ACETAMINOPHEN 500 MG TAB PO ONE (00:15)
[2021-02-02] MEDS ORDERED: KETOROLAC TROMETH 60MG/2ML VIAL IM ONE (00:45)
== END 2021-02-02 02:17 | disposition home or self-care (01) ==
LOC: ER 21:12
DX: S73.102A Unspecified sprain of left hip, initial encounter (principal); M79.18 Myalgia, other site; E78.5 Hyperlipidemia, unspecified; I10 Essential (primary) hypertension; Z88.6 Allergy status to analgesic agent; W07.XXXA Fall from chair, initial encounter; Y93.89 Activity, other specified; Y92.89 Other specified places as the place of occurrence of the external cause; Y99.8 Other external cause status
CPT/HCPCS: 72100; 72170; 73502; 96372; 99284; J1885

== ENCOUNTER 2021-07-02 08:45 | Inpatient (IN) | payer OTHER, MEDICAID ==
[~2021-07-02] VITALS: Ht 162.6 cm; Wt 80.4 kg
[2021-07-02 10:18] LABS: Basophils # (auto) 0 10 ^3/uL (0-0.2); Basophils % (auto) 1.3 % (0.0-2.0); Eosinophils # (auto) 0 10 ^3/uL (0-0.8); Eosinophils % (auto) 0.7 % (0.0-7.0); Hematocrit 41.5 % (36.0-46.0); Hemoglobin 14.6 g/dL (12.2-16.2); Lymphocytes # (auto) 0.9 10 ^3/uL (0.4-5.4); Lymphocytes % (auto) 26.4 % (10.0-50.0); Mean Corpuscular Hgb Conc. 35.1 g/dL (32.0-36.0); Monocytes # (auto) 0.3 10 ^3/uL (0-1.3); Monocytes % (auto) 7.9 % (0.0-12.0); Neutrophils # (auto) 2.1 10 ^3/uL (1.6-8.6); Neutrophils % (auto) 63.7 % (37.0-80.0); Red Blood Cells 4.56 10^6/uL (4.0-5.20); Red Cell Distribution Width 14.1 % (11.8-14.3); White Blood Cell 3.3 10^3/uL (4.4-10.8)
[2021-07-02 10:33] LABS: Calcium 9.5 mg/dL (8.5-10.1); Potassium 3.4 mmol/L (3.5-5.1)
[2021-07-02 10:42] LABS: BUN/Creatinine Ratio 17.6; Bilirubin, Total 0.4 mg/dL (0.2-1.0); Total Protein 8.1 g/dL (6.4-8.2)
[2021-07-02 13:24] LABS: Urine Bacteria NONE SEEN /hpf (None Seen); Urine Blood Negative /uL (Negative); Urine Specific Gravity 1.004 (1.001-1.035); Urine WBC 1 /hpf (0 - 5)
[2021-07-02] MEDS ORDERED: metroNIDAZOLE 500MG/100ML 100 ML IV ONE (14:45)
[2021-07-02] MEDS ORDERED: metroNIDAZOLE 500 MG TAB PO ONE (16:15)
[2021-07-02] MEDS ORDERED: NITROGLYCERIN 0.4 MG SL TAB SL PRN (19:15)
[2021-07-02] MEDS ORDERED: DOCUSATE CALCIUM 240 MG CAP PO PRN (19:15)
[2021-07-02] MEDS ORDERED: ONDANSETRON HCL 4 MG/2 ML VIAL IV PRN (19:15)
[2021-07-02] MEDS ORDERED: MORPHINE SULFATE INJECTION 2 MG/ML SYRG IV PRN (19:15)
[2021-07-02] MEDS ORDERED: POTASSIUM EFFERVESENT TAB 25 MEQ PO ONE (19:15)
[2021-07-02] MEDS ORDERED: LORazepam 0.5 MG TAB PO PRN (19:15)
[2021-07-02] MEDS ORDERED: hydrALAZINE HCL 20 MG/ML VL IV PRN (19:15)
[2021-07-02] MEDS: PANTOPRAZOLE 40 MG TAB PO SCH (22:01)
[2021-07-02] MEDS: ACETAMINOPHEN 500 MG TAB PO PRN (23:02)
[2021-07-03 01:35] VITALS: BP 117/74
[2021-07-03 07:58] LABS: Basophils # (auto) 0 10 ^3/uL (0-0.2); Basophils % (auto) 1.2 % (0.0-2.0); Eosinophils # (auto) 0 10 ^3/uL (0-0.8); Eosinophils % (auto) 0.7 % (0.0-7.0); Hematocrit 39.4 % (36.0-46.0); Hemoglobin 13.6 g/dL (12.2-16.2); Lymphocytes % (auto) 36.2 % (10.0-50.0); Mean Corpuscular Hemoglobin 31.4 pg (28.0-32.0); Mean Corpuscular Hgb Conc. 34.4 g/dL (32.0-36.0); Mean Corpuscular Volume 91.4 fL (80.0-100.0); Monocytes # (auto) 0.3 10 ^3/uL (0-1.3); Monocytes % (auto) 11.2 % (0.0-12.0); Neutrophils # (auto) 1.4 10 ^3/uL (1.6-8.6); Neutrophils % (auto) 50.7 % (37.0-80.0); Nucleated Red Blood Cells % 0.1 %; Red Blood Cells 4.31 10^6/uL (4.0-5.20); Red Cell Distribution Width 13.8 % (11.8-14.3); White Blood Cell 2.9 10^3/uL (4.4-10.8)
[2021-07-03 08:06] LABS: INR 1.04 (0.9-1.15)
[2021-07-03 08:17] LABS: Potassium 3.2 mmol/L (3.5-5.1)
[2021-07-03 08:29] LABS: Albumin 3.6 g/dL (3.4-5.0); BUN/Creatinine Ratio 18.6; Bilirubin, Total 0.6 mg/dL (0.2-1.0); Calcium 9.2 mg/dL (8.5-10.1); Total Protein 6.8 g/dL (6.4-8.2); Uric Acid 5.1 mg/dL (2.6-6.0)
[2021-07-03 09:00] VITALS: BP 126/79
[2021-07-03] MEDS: PANTOPRAZOLE 40 MG TAB PO SCH ×2 (09:36→22:00)
[2021-07-03] MEDS ORDERED: POTASSIUM CHL 20 Meq TABLET PO ONE ×2 (11:15→12:30)
[2021-07-03 13:00] VITALS: BP 123/82
[2021-07-03] MEDS ORDERED: GASTROGRAFIN 120 ML SOL ONE (14:01)
[2021-07-03] MEDS: ACETAMINOPHEN 500 MG TAB PO PRN (16:31)
[2021-07-03] MEDS ORDERED: LISINOPRIL 20 MG TAB PO ONE ×2 (16:45→17:00)
[2021-07-03 16:59] VITALS: BP 153/94
[2021-07-03] MEDS: SODIUM CHLORIDE 0.9% 1,000 ML IV SCH (17:12)
[2021-07-03 22:00] VITALS: BP 115/73
[2021-07-04] MEDS: SODIUM CHLORIDE 0.9% 1,000 ML IV SCH (03:06)
[2021-07-04 05:00] VITALS: BP 118/72
[2021-07-04 07:41] LABS: Basophils # (auto) 0 10 ^3/uL (0-0.2); Basophils % (auto) 1.1 % (0.0-2.0); Eosinophils # (auto) 0 10 ^3/uL (0-0.8); Eosinophils % (auto) 0.6 % (0.0-7.0); Hematocrit 38.9 % (36.0-46.0); Lymphocytes # (auto) 1.2 10 ^3/uL (0.4-5.4); Lymphocytes % (auto) 38.9 % (10.0-50.0); Mean Corpuscular Hgb Conc. 33.4 g/dL (32.0-36.0); Monocytes # (auto) 0.3 10 ^3/uL (0-1.3); Monocytes % (auto) 8.9 % (0.0-12.0); Neutrophils # (auto) 1.5 10 ^3/uL (1.6-8.6); Neutrophils % (auto) 50.5 % (37.0-80.0); Nucleated Red Blood Cells % 0.2 %; Red Blood Cells 4.19 10^6/uL (4.0-5.20)
[2021-07-04 08:00] VITALS: BP 142/92
[2021-07-04] MEDS ORDERED: diphenhdrAMINE HCL 50 MG/1 ML VL ONE (08:50)
[2021-07-04] MEDS ORDERED: LIDOCAINE VISCOUS 2% 15ML UD ONE (08:50)
[2021-07-04 09:00] VITALS: BP 142/92
[2021-07-04] MEDS: MIDAZOLAM HCL 5 MG/ML-1ML VIAL ONE ×2 (09:56→09:59)
[2021-07-04] MEDS: fentaNYL CITRATE 100 MCG/2 ML VL ONE ×2 (09:56→09:59)
[2021-07-04] MEDS ORDERED: LISINOPRIL 20 MG TAB PO SCH ×2 (10:00)
[2021-07-04] MEDS ORDERED: SODIUM CHLORIDE 0.9% 1,000 ML IV SCH (12:00)
[2021-07-04 13:19] LABS: BUN/Creatinine Ratio 10.6; Calcium 8.4 mg/dL (8.5-10.1)
[2021-07-04 13:22] LABS: Potassium 3.9 mmol/L (3.5-5.1)
[2021-07-04 17:04] VITALS: BP 129/76
== END 2021-07-04 18:00 | disposition home or self-care (01) | DRG 379 ==
LOC: ER 08:45 → TELE 19:12 → TELE-WESTW 23:39
PROVIDERS: ADMIT Family Medicine; ATTEND Internal Medicine
PROC: 0DJ08ZZ Inspection of Upper Intestinal Tract, Via Natural or Artificial Opening Endoscopic (ICD-10-PCS; principal; 2021-07-04 09:52)
DX: K57.91 Diverticulosis of intestine, part unspecified, without perforation or abscess with bleeding (principal); K80.20 Calculus of gallbladder without cholecystitis without obstruction; K52.9 Noninfective gastroenteritis and colitis, unspecified; E87.6 Hypokalemia; R73.9 Hyperglycemia, unspecified; D72.819 Decreased white blood cell count, unspecified; E78.5 Hyperlipidemia, unspecified; I10 Essential (primary) hypertension; Z20.822 Contact with and (suspected) exposure to COVID-19; F32.A Depression, unspecified; F41.9 Anxiety disorder, unspecified; M10.9 Gout, unspecified; Z88.8 Allergy status to other drugs, medicaments and biological substances; Z88.5 Allergy status to narcotic agent; Z79.899 Other long term (current) drug therapy; Z83.3 Family history of diabetes mellitus
CPT/HCPCS: 36415; 74176; 74270; 76856; 80048; 80053; 81001; 82270; 83036; 83605; 84443; 84484; 84550; 85025; 85610; 87040; 87426; 93005; 97116; 97163; 97530; G0378; J2250

== ENCOUNTER 2021-10-19 12:54 | Emergency (ER) | payer OTHER, MEDICAID ==
[~2021-10-19] VITALS: Ht 157.5 cm; Wt 72.6 kg
[2021-10-19 14:48] VITALS: BP 154/85
== END 2021-10-19 16:17 | disposition home or self-care (01) ==
LOC: ER 12:54
DX: S00.03XA Contusion of scalp, initial encounter (principal); E78.5 Hyperlipidemia, unspecified; I10 Essential (primary) hypertension; W18.00XA Striking against unspecified object with subsequent fall, initial encounter; Y93.89 Activity, other specified; Y92.89 Other specified places as the place of occurrence of the external cause; Y99.8 Other external cause status
CPT/HCPCS: 70450

== ENCOUNTER 2021-11-11 22:37 | Emergency (ER) | payer OTHER, MEDICAID ==
[~2021-11-11] VITALS: Ht 157.5 cm; Wt 72.6 kg
[2021-11-11] MEDS ORDERED: amLODIPine BESYLATE 5 MG TAB PO ONE (23:00)
[2021-11-11] MEDS ORDERED: hydrALAZINE HCL 20 MG/ML VL IV ONE (23:00)
[2021-11-11 23:45] LABS: Basophils # (auto) 0.2 10 ^3/uL (0-0.2); Basophils % (auto) 3.2 % (0.0-2.0); Eosinophils # (auto) 0.2 10 ^3/uL (0-0.8); Eosinophils % (auto) 3.3 % (0.0-7.0); Hematocrit 40.6 % (36.0-46.0); Hemoglobin 14.2 g/dL (12.2-16.2); Lymphocytes # (auto) 1.2 10 ^3/uL (0.4-5.4); Lymphocytes % (auto) 23.5 % (10.0-50.0); Mean Corpuscular Hemoglobin 32.4 pg (28.0-32.0); Mean Corpuscular Volume 92.6 fL (80.0-100.0); Monocytes # (auto) 0.3 10 ^3/uL (0-1.3); Monocytes % (auto) 5.1 % (0.0-12.0); Neutrophils # (auto) 3.3 10 ^3/uL (1.6-8.6); Neutrophils % (auto) 64.9 % (37.0-80.0); Nucleated Red Blood Cells % 0.2 %; Red Blood Cells 4.38 10^6/uL (4.0-5.20); Red Cell Distribution Width 13.5 % (11.8-14.3); White Blood Cell 5.1 10^3/uL (4.4-10.8)
[2021-11-12 00:03] LABS: Albumin 3.7 g/dL (3.4-5.0); Calcium 9.4 mg/dL (8.5-10.1); Potassium 3.9 mmol/L (3.5-5.1)
[2021-11-12 00:06] LABS: Bilirubin, Total 0.4 mg/dL (0.2-1.0); Total Protein 7.3 g/dL (6.4-8.2)
[2021-11-12 00:49] VITALS: BP 161/86
[2021-11-12] MEDS ORDERED: ACETAMINOPHEN 325 MG TAB PO ONE (01:15)
== END 2021-11-12 01:42 | disposition home or self-care (01) ==
LOC: ER 22:37
DX: I16.0 Hypertensive urgency (principal); E78.5 Hyperlipidemia, unspecified; I10 Essential (primary) hypertension; M10.9 Gout, unspecified; Z88.6 Allergy status to analgesic agent; Z88.8 Allergy status to other drugs, medicaments and biological substances
CPT/HCPCS: 36415; 70450; 71045; 80053; 83880; 84484; 85025; 93005; 96374; 99285; J0360

== ENCOUNTER 2022-01-16 18:30 | Emergency (ER) | payer OTHER, MEDICAID ==
[~2022-01-16] VITALS: Ht 157.5 cm; Wt 72.6 kg
[2022-01-16] MEDS ORDERED: ACETAMINOPHEN 325 MG TAB PO ONE (20:30)
[2022-01-16] MEDS ORDERED: NAPROXEN 500 MG TAB PO ONE (22:15)
[2022-01-16 23:11] LABS: Basophils # (auto) 0 10 ^3/uL (0-0.2); Basophils % (auto) 1.2 % (0.0-2.0); Eosinophils # (auto) 0.1 10 ^3/uL (0-0.8); Eosinophils % (auto) 1.5 % (0.0-7.0); Hematocrit 40.5 % (36.0-46.0); Hemoglobin 13.8 g/dL (12.2-16.2); Lymphocytes # (auto) 1.4 10 ^3/uL (0.4-5.4); Lymphocytes % (auto) 35.7 % (10.0-50.0); Mean Corpuscular Hemoglobin 31.4 pg (28.0-32.0); Mean Corpuscular Hgb Conc. 34.1 g/dL (32.0-36.0); Mean Corpuscular Volume 92.1 fL (80.0-100.0); Monocytes # (auto) 0.2 10 ^3/uL (0-1.3); Monocytes % (auto) 6.3 % (0.0-12.0); Neutrophils # (auto) 2.1 10 ^3/uL (1.6-8.6); Neutrophils % (auto) 55.3 % (37.0-80.0); Nucleated Red Blood Cells % 0.1 %; Red Cell Distribution Width 13.7 % (11.8-14.3); White Blood Cell 3.8 10^3/uL (4.4-10.8)
[2022-01-16 23:23] LABS: Albumin 3.8 g/dL (3.4-5.0); CRP High Sensitivity 0.8 mg/dL (< 0.3); Potassium 3.3 mmol/L (3.5-5.1)
[2022-01-16 23:27] LABS: Bilirubin, Total 0.3 mg/dL (0.2-1.0); Total Protein 7.8 g/dL (6.4-8.2)
[2022-01-17] MEDS ORDERED: POTASSIUM EFFERVESENT TAB 25 MEQ PO ONE (00:15)
[2022-01-17 00:46] VITALS: BP 153/87
== END 2022-01-17 00:49 | disposition home or self-care (01) ==
LOC: ER 18:30
DX: R51.9 Headache, unspecified (principal); I10 Essential (primary) hypertension; E78.5 Hyperlipidemia, unspecified; M10.9 Gout, unspecified
CPT/HCPCS: 36415; 70450; 80053; 85025; 85652; 86141; 93005

== ENCOUNTER 2022-05-13 18:43 | Emergency (ER) | payer OTHER, MEDICAID ==
[~2022-05-13] VITALS: Ht 157.5 cm; Wt 75.0 kg
[2022-05-13 20:19] LABS: Basophils # (auto) 0.1 10 ^3/uL (0-0.2); Basophils % (auto) 0.7 % (0.0-2.0); Eosinophils # (auto) 0.1 10 ^3/uL (0-0.8); Hematocrit 44.2 % (36.0-46.0); Lymphocytes # (auto) 1.2 10 ^3/uL (0.4-5.4); Lymphocytes % (auto) 15.6 % (10.0-50.0); Mean Corpuscular Hemoglobin 32.5 pg (28.0-32.0); Mean Corpuscular Hgb Conc. 36.1 g/dL (32.0-36.0); Mean Corpuscular Volume 89.8 fL (80.0-100.0); Monocytes # (auto) 0.5 10 ^3/uL (0-1.3); Neutrophils # (auto) 6.1 10 ^3/uL (1.6-8.6); Neutrophils % (auto) 76.7 % (37.0-80.0); Red Blood Cells 4.92 10^6/uL (4.0-5.20); Red Cell Distribution Width 13.8 % (11.8-14.3)
[2022-05-13 20:46] LABS: Albumin 3.8 g/dL (3.4-5.0); BUN/Creatinine Ratio 15.8; Calcium 9.1 mg/dL (8.5-10.1); Lactic Acid w/Reflex 2.4 mmol/L (0.4-2.0); Magnesium 2.1 mg/dL (1.6-2.6)
[2022-05-13 20:59] LABS: Bilirubin, Total 0.3 mg/dL (0.2-1.0); Total Protein 7.5 g/dL (6.4-8.2)
[2022-05-13 21:07] LABS: Potassium 2.9 mmol/L (3.5-5.1)
[2022-05-13] MEDS ORDERED: SODIUM CHLORIDE 0.9% 1,000 ML IV ONE (22:15)
[2022-05-13] MEDS ORDERED: FLEET ENEMA(ADULT) 135 ML PR ONE (22:15)
[2022-05-13] MEDS ORDERED: GOLYTELY 4L KIT PO ONE (22:15)
[2022-05-13] MEDS ORDERED: ACETAMINOPHEN 325 MG TAB PO ONE (22:15)
[2022-05-13] MEDS ORDERED: POTASSIUM CHL 20 Meq TABLET PO ONE (22:15)
[2022-05-14 00:29] VITALS: BP 168/95
[2022-05-14] MEDS ORDERED: DOCUSATE SOD 100 MG CAP PO ONE (01:00)
== END 2022-05-14 04:20 | disposition home or self-care (01) ==
LOC: ER 18:43 → EDUNIT# 18:43 → EDBD 18:43 → ER 05-14 04:20
DX: K56.41 Fecal impaction (principal); E87.6 Hypokalemia; R42 Dizziness and giddiness
CPT/HCPCS: 36415; 70450; 74176; 80053; 83605; 83690; 83735; 84484; 85025; 93005; 96360; 99285; J7030

== ENCOUNTER 2022-06-25 15:25 | Emergency (ER) | payer OTHER, MEDICAID ==
[~2022-06-25] VITALS: Ht 157.5 cm; Wt 73.6 kg
[2022-06-25 17:13] LABS: Basophils # (auto) 0.1 10 ^3/uL (0-0.2); Basophils % (auto) 0.8 % (0.0-2.0); Eosinophils # (auto) 0 10 ^3/uL (0-0.8); Eosinophils % (auto) 0.6 % (0.0-7.0); Hemoglobin 15.1 g/dL (12.2-16.2); Lymphocytes # (auto) 0.8 10 ^3/uL (0.4-5.4); Mean Corpuscular Hemoglobin 31.1 pg (28.0-32.0); Mean Corpuscular Hgb Conc. 33.6 g/dL (32.0-36.0); Mean Corpuscular Volume 92.6 fL (80.0-100.0); Monocytes # (auto) 0.6 10 ^3/uL (0-1.3); Monocytes % (auto) 9.5 % (0.0-12.0); Neutrophils # (auto) 4.6 10 ^3/uL (1.6-8.6); Neutrophils % (auto) 76.1 % (37.0-80.0); Red Blood Cells 4.86 10^6/uL (4.0-5.20); Red Cell Distribution Width 14.3 % (11.8-14.3)
[2022-06-25] MEDS ORDERED: IBUPROFEN 400 MG TAB PO ONE (17:15)
[2022-06-25] MEDS ORDERED: ACETAMINOPHEN 325 MG TAB PO ONE (17:15)
[2022-06-25 17:29] LABS: Albumin 4.1 g/dL (3.4-5.0); BUN/Creatinine Ratio 14.7; Calcium 9.6 mg/dL (8.5-10.1); Potassium 3.5 mmol/L (3.5-5.1)
[2022-06-25 18:33] LABS: Bilirubin, Total 0.4 mg/dL (0.2-1.0); Total Protein 8.1 g/dL (6.4-8.2)
[2022-06-25 20:32] VITALS: BP 132/67
== END 2022-06-25 20:35 | disposition home or self-care (01) ==
LOC: ER 15:27
DX: U07.1 COVID-19 (principal); B34.9 Viral infection, unspecified; R51.9 Headache, unspecified; I10 Essential (primary) hypertension; E78.5 Hyperlipidemia, unspecified; M10.9 Gout, unspecified; Z79.82 Long term (current) use of aspirin; Z79.899 Other long term (current) drug therapy; Z88.8 Allergy status to other drugs, medicaments and biological substances
CPT/HCPCS: 36415; 71045; 80053; 85025; 87426; 87804

== ENCOUNTER 2022-12-16 09:16 | Emergency (ER) | payer OTHER, MEDICAID ==
[~2022-12-16] VITALS: Ht 157.5 cm; Wt 74.5 kg
[~2022-12-16 09:16] MED LIST changes: -LISI20TA28 PO; +LISI20TA56 PO; +PROP1TAB53 PO; -PROP20TA73 PO
[2022-12-16 10:01] LABS: Basophils # (auto) 0 10 ^3/uL (0-0.2); Basophils % (auto) 1.1 % (0.0-2.0); Eosinophils # (auto) 0.1 10 ^3/uL (0-0.8); Eosinophils % (auto) 1.6 % (0.0-7.0); Hematocrit 42.9 % (36.0-46.0); Hemoglobin 14.9 g/dL (12.2-16.2); Lymphocytes # (auto) 1.4 10 ^3/uL (0.4-5.4); Lymphocytes % (auto) 37.3 % (10.0-50.0); Mean Corpuscular Hemoglobin 31.9 pg (28.0-32.0); Mean Corpuscular Hgb Conc. 34.8 g/dL (32.0-36.0); Mean Corpuscular Volume 91.6 fL (80.0-100.0); Monocytes # (auto) 0.3 10 ^3/uL (0-1.3); Monocytes % (auto) 8.1 % (0.0-12.0); Neutrophils % (auto) 51.9 % (37.0-80.0); Nucleated Red Blood Cells % 0.3 %; Red Blood Cells 4.68 10^6/uL (4.0-5.20); Red Cell Distribution Width 14.4 % (11.8-14.3); White Blood Cell 3.8 10^3/uL (4.4-10.8)
[2022-12-16 10:19] LABS: Albumin 4.3 g/dL (3.4-5.0); Calcium 9.3 mg/dL (8.5-10.1); Potassium 3.1 mmol/L (3.5-5.1)
[2022-12-16 10:23] LABS: BUN/Creatinine Ratio 15.4 (10.0-20.0); Bilirubin, Total 0.5 mg/dL (0.2-1.0); Total Protein 7.7 g/dL (6.4-8.2)
[2022-12-16] MEDS ORDERED: PRIM50TA5 PO (12:11)
[2022-12-16] MEDS ORDERED: POTASSIUM CHL 20 Meq TABLET PO ONE (12:15)
[2022-12-16] MEDS ORDERED: POTASSIUM CHL 20MEQ/100ML 100 ML IV ONE (12:15)
[2022-12-16 15:45] VITALS: BP 187/83
[2022-12-16] MEDS ORDERED: ACETAMINOPHEN 325 MG TAB PO ONE (16:00)
== END 2022-12-16 16:08 | disposition home or self-care (01) ==
LOC: ER 09:16
DX: R00.2 Palpitations (principal); E87.6 Hypokalemia; R07.9 Chest pain, unspecified; I10 Essential (primary) hypertension; Z88.6 Allergy status to analgesic agent
CPT/HCPCS: 36415; 71045; 80053; 83735; 83880; 84484; 85025; 93005; 96365; 96366; 99285; J3480

== ENCOUNTER 2022-12-18 18:24 | Emergency (ER) | payer OTHER, MEDICAID ==
[~2022-12-18] VITALS: Ht 152.4 cm; Wt 68.1 kg
[~2022-12-18 18:24] MED LIST changes: +PRIM50TA5 PO
[2022-12-18 18:54] LABS: Basophils # (auto) 0 10 ^3/uL (0-0.2); Basophils % (auto) 0.9 % (0.0-2.0); Eosinophils # (auto) 0 10 ^3/uL (0-0.8); Hematocrit 41.2 % (36.0-46.0); Hemoglobin 14.5 g/dL (12.2-16.2); Lymphocytes # (auto) 1.3 10 ^3/uL (0.4-5.4); Lymphocytes % (auto) 28.4 % (10.0-50.0); Mean Corpuscular Hemoglobin 32.1 pg (28.0-32.0); Mean Corpuscular Hgb Conc. 35.2 g/dL (32.0-36.0); Mean Corpuscular Volume 91.4 fL (80.0-100.0); Monocytes # (auto) 0.3 10 ^3/uL (0-1.3); Monocytes % (auto) 6.8 % (0.0-12.0); Neutrophils # (auto) 2.9 10 ^3/uL (1.6-8.6); Neutrophils % (auto) 62.9 % (37.0-80.0); Nucleated Red Blood Cells % 0.1 %; Red Blood Cells 4.51 10^6/uL (4.0-5.20); Red Cell Distribution Width 13.7 % (11.8-14.3); White Blood Cell 4.6 10^3/uL (4.4-10.8)
[2022-12-18 19:10] LABS: INR 0.92 (0.9-1.15); Partial Thromboplastin Time 30.3 sec (24.6-33.4)
[2022-12-18 20:09] LABS: Albumin 3.9 g/dL (3.4-5.0); Calcium 8.8 mg/dL (8.5-10.1); Magnesium 2.2 mg/dL (1.6-2.6); Potassium 3.3 mmol/L (3.5-5.1)
[2022-12-18 20:12] LABS: BUN/Creatinine Ratio 20.6 (10.0-20.0); Bilirubin, Total 0.2 mg/dL (0.2-1.0); Total Protein 7.7 g/dL (6.4-8.2)
[2022-12-18] MEDS ORDERED: ALPRAZolam 0.5 MG TAB PO ONE (21:15)
[2022-12-18] MEDS ORDERED: POTASSIUM EFFERVESENT TAB 25 MEQ PO ONE (22:30)
[2022-12-18 23:28] VITALS: BP 161/84
== END 2022-12-18 23:41 | disposition home or self-care (01) ==
LOC: EDBD 18:24 → ER 18:24
DX: F41.9 Anxiety disorder, unspecified (principal); E87.1 Hypo-osmolality and hyponatremia; E87.6 Hypokalemia; E11.65 Type 2 diabetes mellitus with hyperglycemia; E86.0 Dehydration; R79.89 Other specified abnormal findings of blood chemistry; M19.90 Unspecified osteoarthritis, unspecified site; F32.9 Major depressive disorder, single episode, unspecified; E78.5 Hyperlipidemia, unspecified; I10 Essential (primary) hypertension; Z88.5 Allergy status to narcotic agent; Z88.8 Allergy status to other drugs, medicaments and biological substances
CPT/HCPCS: 36415; 71045; 80053; 83735; 83880; 84484; 85025; 85610; 85730; 93005

== ENCOUNTER 2024-02-24 17:32 | Emergency (ER) | payer OTHER, MEDICAID ==
[~2024-02-24] VITALS: Ht 157.5 cm; Wt 78.1 kg
[2024-02-24 19:04] LABS: Basophils # (auto) 0.1 10 ^3/uL (0-0.2); Basophils % (auto) 1.3 % (0.0-2.0); Eosinophils # (auto) 0.1 10 ^3/uL (0-0.8); Eosinophils % (auto) 2.7 % (0.0-7.0); Hematocrit 39.4 % (36.0-46.0); Hemoglobin 13.8 g/dL (12.2-16.2); Lymphocytes # (auto) 1.5 10 ^3/uL (0.4-5.4); Lymphocytes % (auto) 34.9 % (10.0-50.0); Mean Corpuscular Hemoglobin 32.1 pg (28.0-32.0); Mean Corpuscular Volume 91.6 fL (80.0-100.0); Monocytes # (auto) 0.4 10 ^3/uL (0-1.3); Monocytes % (auto) 8.5 % (0.0-12.0); Neutrophils # (auto) 2.3 10 ^3/uL (1.6-8.6); Neutrophils % (auto) 52.6 % (37.0-80.0); Nucleated Red Blood Cells % 0.1 %; Red Cell Distribution Width 14.3 % (11.8-14.3); White Blood Cell 4.4 10^3/uL (4.4-10.8)
[2024-02-24 19:13] LABS: Chloride 101 mmol/L (98-107); Potassium 3.2 mmol/L (3.5-5.1); Sodium 136 mmol/L (136-145)
[2024-02-24 19:14] LABS: Anion Gap 8 (5-15); Calcium 9.5 mg/dL (8.7-10.4); Carbon Dioxide 27 mmol/L (20-30)
[2024-02-24 19:19] LABS: BUN/Creatinine Ratio 16.1 (10.0-20.0); Blood Urea Nitrogen 14 mg/dL (9-23); Glucose 124 mg/dL (74-106)
[2024-02-24] MEDS: ALPRAZolam 0.25 MG TAB PO ONE (19:32)
[2024-02-24] MEDS: MECLIZINE HCL 25 MG TAB PO ONE (19:32)
[2024-02-24] MEDS: ONDANSETRON ODT 4 MG TAB PO ONE (19:32)
[2024-02-24 19:35] VITALS: BP 113/68; PULSE 65; RESP 18; TEMP 98.2; O2SAT 96
[2024-02-24] MEDS ORDERED: ZOFR4T PO (20:25)
[2024-02-24] MEDS ORDERED: ALPR0.25 PO (20:25)
[2024-02-24] MEDS ORDERED: MECL1TAB42 PO (20:25)
== END 2024-02-24 22:06 | disposition home or self-care (01) ==
LOC: ER 17:46
DX: H81.10 Benign paroxysmal vertigo, unspecified ear (principal); I10 Essential (primary) hypertension; E78.5 Hyperlipidemia, unspecified; M10.9 Gout, unspecified; F41.9 Anxiety disorder, unspecified; F32.9 Major depressive disorder, single episode, unspecified; M19.90 Unspecified osteoarthritis, unspecified site; Z98.890 Other specified postprocedural states
CPT/HCPCS: 36415; 70450; 80048; 85025; 93005; 99284; J8597; Q0162

== ENCOUNTER 2024-09-18 12:19 | Emergency (ER) | payer OTHER, MEDICAID ==
[~2024-09-18] VITALS: Ht 157.5 cm; Wt 72.1 kg
[~2024-09-18 12:19] MED LIST changes: +ALPR0.25 PO; +MECL1TAB42 PO; +ZOFR4T PO
[2024-09-18 13:38] VITALS: BP 129/59; PULSE 69; RESP 19; TEMP 98; O2SAT 96
[2024-09-18 14:24] LABS: Urine Bacteria None Seen /hpf (None Seen)
[2024-09-18 14:54] LABS: Urine Blood Negative /uL (Negative); Urine Clarity Clear (Clear); Urine Color Light-Yellow (Yellow); Urine Protein, UAD Negative (Negative); Urine Specific Gravity 1.015 (1.001-1.035); Urine Squamous Epithelial Cell FEW /hpf (<5); Urine Urobilinogen Normal (Negative); Urine WBC 2 /HPF (0-5); Urine pH 5.5 (5.0-9.0)
[2024-09-18 14:58] LABS: Chloride 98 mmol/L (98-107); Sodium 136 mmol/L (136-145)
[2024-09-18 14:59] LABS: Anion Gap 9 (5-15); Carbon Dioxide 29 mmol/L (20-31)
[2024-09-18 15:02] LABS: Basophils # (auto) 0 10 ^3/uL (0-0.2); Basophils % (auto) 0.7 % (0.0-2.0); Eosinophils # (auto) 0.1 10 ^3/uL (0-0.8); Eosinophils % (auto) 2.5 % (0.0-7.0); Hematocrit 42.8 % (36.0-46.0); Hemoglobin 14.9 g/dL (12.2-16.2); Lymphocytes # (auto) 1.5 10 ^3/uL (0.4-5.4); Lymphocytes % (auto) 28.5 % (10.0-50.0); Mean Corpuscular Hemoglobin 31.9 pg (28.0-32.0); Mean Corpuscular Hgb Conc. 34.8 g/dL (32.0-36.0); Mean Corpuscular Volume 91.8 fL (80.0-100.0); Monocytes # (auto) 0.5 10 ^3/uL (0-1.3); Monocytes % (auto) 8.9 % (0.0-12.0); Neutrophils # (auto) 3.1 10 ^3/uL (1.6-8.6); Neutrophils % (auto) 59.4 % (37.0-80.0); Platelet Count (auto) 134 10^3/uL (140-450); Red Blood Cells 4.67 10^6/uL (4.0-5.20); Red Cell Distribution Width 14.5 % (11.8-14.3); White Blood Cell 5.3 10^3/uL (4.4-10.8)
[2024-09-18 15:05] LABS: Blood Urea Nitrogen 21 mg/dL (9-23)
[2024-09-18 15:06] LABS: Calcium 10.6 mg/dL (8.7-10.4); Glucose 125 mg/dL (74-106); Potassium 3.2 mmol/L (3.5-5.1)
[2024-09-18] MEDS ORDERED: POTA-36 PO (15:22)
--- NOTE | 2024-09-18 15:22 | ED.PDOC ---
HPI (NEURO) HPI Comments This is a pleasant 74-year-old with a history of radicular diabetes hypertension that presents with the intermittent chief complaint of bilateral ringing. Symptoms started. Two days ago also feels off balance at times. Denies any changes to her medications. 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 History: No Pertinent SHALLOT PACKER History Family History Family History: Reviewed,noncontributory to illness Social History Smoker: Non-Smoker Alcohol: Denies ETOH Use Drugs: Denies Drug Use Lives In: Home All Other Systems: Reviewed and Negative (per hpi) Physical Exam General Appearance: No Apparent Distress, Normal HEENT: Normal ENT Inspection, Pharynx Normal, TMs Normal Neck: Full Range of Motion, Non-Tender, Normal, Normal Inspection Respiratory: Chest Non-Tender, Lungs Clear, No Accessory Muscle Use, No Respiratory Distress, Normal Breath Sounds Cardiovascular: No Murmur, No Gallop, Regular Rate/Rhythm Breast Exam: Deferred Gastrointestinal: No Organomegaly, Non Tender, No Pulsatile Mass, Normal Bowel Sounds, Soft Genitalia: Deferred Pelvic: Deferred Rectal: Deferred Extremities: No calf tenderness, Normal capillary refill, Normal inspection, Normal range of motion, Non-tender, No pedal edema Musculoskeletal : Apperance: Normal Neurologic: Alert, rehab care assistant II-XII nml as Tested, No Motor Deficits, Normal Affect, Normal Mood, No Sensory Deficits Cerebellar Function: Normal Reflexes: Normal Skin: Dry, Normal Color, Warm Lymphatic: No Adenopathy Was a procedure done? Was a procedure done?: No Differential Diagnosis (SZ) Seizure: Other General Weakness: Vertigo: peripheral, Other X-Ray, Labs, Meds, VS Vital Signs Date Time Temp Pulse Resp B/P (MAP) Pulse Ox O2 Delivery O2 Flow Rate FiO2 09/18/24 13:38 98.0 69 19 129/59 (82) 96 98.0 09/18/24 13:38 69 19 96 Room Air 09/18/24 12:33 97.7 66 20 126/58 (80) 96 Lab Test 09/18/24 14:31 3/4/25 14:23 Range/Units White Blood Count 5.3 4.4-10.8 10^3/uL Red Blood Count 4.67 4.0-5.20 10^6/uL Hemoglobin 14.9 12.2-16.2 g/dL Hematocrit 42.8 36.0-46.0 % Mean Corpuscular Volume 91.8 80.0-100.0 fL Mean Corpuscular Hemoglobin 31.9 28.0-32.0 pg Mean Corpuscular Hemoglobin Concent 34.8 32.0-36.0 g/dL Red Cell Distribution Width 14.5 H 11.8-14.3 % Platelet Count 134 L 140-450 10^3/uL Mean Platelet Volume 8.9 6.9-10.8 fL Neutrophils (%) (Auto) 59.4 37.0-80.0 % Lymphocytes (%) (Auto) 28.5 10.0-50.0 % Monocytes (%) (Auto) 8.9 0.0-12.0 % Eosinophils (%) (Auto) 2.5 0.0-7.0 % Basophils (%) (Auto) 0.7 0.0-2.0 % Neutrophils # (Auto) 3.1 1.6-8.6 10 ^3/uL Lymphocytes # (Auto) 1.5 0.4-5.4 10 ^3/uL Monocytes # (Auto) 0.5 0-1.3 10 ^3/uL Eosinophils # (Auto) 0.1 0-0.8 10 ^3/uL Basophils # (Auto) 0 0-0.2 10 ^3/uL Nucleated Red Blood Cells 0.0 % Sodium Level 136 136-145 mmol/L Potassium Level 3.2 L 3.5-5.1 mmol/L Chloride Level 98 98-107 mmol/L Carbon Dioxide Level 29 20-31 mmol/L Anion Gap 9 5-15 Blood Urea Nitrogen 21 9-23 mg/dL Creatinine 0.84 0.550-1.02 mg/dL Glomerular Filtration Rate Calc 72 >90 mL/min BUN/Creatinine Ratio 25.0 H 10.0-20.0 Serum Glucose 125 H 74-106 mg/dL Calcium Level 10.6 H 8.7-10.4 mg/dL Urine Color Light-yellow Yellow Urine Clarity Clear Clear Urine pH 5.5 5.0-9.0 Urine Specific [place] 1.015 1.001-1.035 Urine Protein Negative Negative Urine Ketones Negative Negative Urine Blood Negative Negative /uL Urine Nitrite Negative Negative Urine Bilirubin Negative Negative Urine Urobilinogen Normal Negative mg/dL Urine Leukocyte Esterase Negative Negative /uL Urine RBC <1 0 - 4 /hpf Urine Microscopic WBC 2 0-5 /HPF Urine Squamous Epithelial Cells Few <5 /hpf Urine Bacteria None seen None Seen /hpf Urine Glucose Normal Normal mg/dL Current Medications Medications (Trade) Dose Ordered Sig/[place] Route Start Time Stop Time Status Last Admin Potassium Chloride (Klor-Con Tablet) 20 meq ONCE ONCE PO 09/18/24 15:30 09/18/24 15:34 DC 09/18/24 15:38 X-Ray, Labs, Meds, VS Comment After ROS physical examination is labs were ordered and findings show mild hypokalemia. The patient received 20 mEq use in the emergency department and a prescription for five days advised to return in 4-5 days to repeat labs. Sooner if symptoms worsen On reevaluation, patient had symptomatic improvement. Patient is stable for discharge at this time. External notes reviewed. Test results and diagnostic imaging interpreted. All diagnostic findings, discharge care, education and instructions provided Follow-up with PCP in 2 to 3 days Patient verbalized understanding and agreed to treatment plan Vital signs stable, afebrile, no acute distress noted Patient ambulatory with strong steady gait Advised to return precautions for any new or worsening symptoms, return to ER immediately for re-evaluation Patient is aware that the purpose of this visit was for an acute medical emergency requiring emergent stabilization. Chronic conditions, including malignancies have not been ruled out. Patient is instructed to follow up with PCP as directed and discharge instructions for continued care and workup. If unable to arrange follow-up, patient is to return to the emergency department for reassessment. Patient (parent or legal guardian if applicable) was given verbal and written discharge instructions and acknowledges understanding. Time of 1ST Reevaluation: 15:00 Reevaluation 1ST: Improved Patient Education/Counseling: Diagnosis, Treatment Family Education/Counseling: Diagnosis, Treatment Departure 1 Departure Time of Disposition: 15:21 Impression: Primary Impression: Hypokalemia Disposition: 01 HOME / SELF CARE / HOMELESS Condition: Stable e-Prescriptions Potassium Chloride (POTASSIUM CHLORIDE CR) 10 Meq Tb 1 TAB PO DAILY for 5 Days, #5 TAB 0 Refills Prov: GRAYSON OROZCO NP 09/18/24 Critical Care Note Critical Care Time?: No Stability Stability form required: No Heart Score Heart Score: Heart Score Response (Comments) Value History N/A 0 EKG N/A 0 Age N/A 0 Risk Factors N/A 0 Troponin N/A 0 Total 0 GRAYSON OROZCO NP Sep 18, 2024 15:22
[2024-09-18] MEDS: POTASSIUM CHL 20 Meq TABLET PO ONE (15:38)
== END 2024-09-18 15:43 | disposition home or self-care (01) ==
LOC: ER 12:19
DX: E87.6 Hypokalemia (principal); F41.9 Anxiety disorder, unspecified; M19.90 Unspecified osteoarthritis, unspecified site; E78.5 Hyperlipidemia, unspecified; I10 Essential (primary) hypertension
CPT/HCPCS: 36415; 80048; 81001; 85025

== ENCOUNTER 2024-10-21 20:40 | Emergency (ER) | payer OTHER, MEDICAID ==
[~2024-10-21] VITALS: Ht 157.5 cm; Wt 74.0 kg
[~2024-10-21 20:40] MED LIST changes: +ALBU108A5 INH; +CYAN100042 PO; +ERGO1CAP12 PO; +LOSA-534 PO; +MAGN400T40 PO; +METF-1145 PO; +OMEG-86 PO; +POTA-228 PO; +POTA-36 PO; +ROSU20TA56 PO; +SERT-206 PO
--- NOTE | 2024-10-21 21:03 | ED.PDOC ---
HPI Comments 74 y.o female with PMHx of HTN, gout, hyperlipidemia, and preDM, presents to the ED for an evaluation of high blood pressure associated with a generalized headache and blurred vision that started today. Patient reports measuring blood pressure at home, read high. Patient was taking Lisinopril but recently PCP switched her to Losartan. Patient denies any chest pain, fever, chills, SOB, nausea, vomiting. Time Seen by MD: 20:56 Primary Care Provider: CANDIS Reviewed Notes: Nurses Notes, Medications, Allergies Allergies: Coded Allergies: Nifedipine (Verified Allergy, Severe, 12/11/17) Hydrocodone (Verified Allergy, Unknown, 10/11/18) Home Meds Active Scripts Potassium Chloride (POTASSIUM CHLORIDE CR) 10 Meq Tb, 1 TAB PO DAILY for 5 Days, #5 TAB 0 Refills Prov:GRAYSON OROZCO DOCTOR OF RADIOLOGY 09/18/24 Ondansetron Odt 4MG Tab (ZOFRAN PO) 4 Mg Tb, 4 MG PO 6XD PRN, #30 TAB ODT TAB-DISSOLVE IN MOUTH, THEN SWALLOW Prov:SRI GRIFFIN MD 02/24/24 Alprazolam (Xanax) 0.25 Mg Tb, 1 TAB PO BID PRN, #10 TAB Prov:SRI GRIFFIN MD 02/24/24 Meclizine HCl (Meclizine 25) 25 Mg Tab, 25 MG PO 6XD PRN, #30 TAB Prov:SRI GRIFFIN MD 02/24/24 Primidone (MYSOLINE TABLET) 50 Mg Tb, 100 MG PO BID for 14 Days, #56 TAB Prov:FRANCES GUERRA MD 12/16/22 Reported Medications Metoprolol Tartrate (Metoprolol Tartrate) 25 Mg Tab, 25 MG PO for 30 Days, MG 10/17/18 Aspirin (Aspir-Low) 81 Mg Tab, 81 MG PO DAILY for 30 Days, MG 10/17/18 Allopurinol (Allopurinol) 300 Mg Tab, 300 MG PO DAILY for 30 Days, MG 09/22/18 Lisinopril (Lisinopril) 20 Mg Tab, 20 MG PO DAILY for 30 Days, MG 09/22/18 Senna (Senna Lax) 8.6 Mg Tab, 8.6 MG PO Q12HR, MG 09/22/18 Omeprazole (Omeprazole) 20 Mg Cap, 20 MG PO BID, CAP 09/22/18 Propranolol HCl (Propranolol Hydrochloride) 20 Mg Tab, 20 MG PO BID, TAB 09/22/18 Information Source: Patient Mode of Arrival: Ambulatory Severity: Moderate Timing: Hours Duration: Since onset Onset: At Rest Cardiac Risk Factors: Hyperlipidemia, HTN PE Risk Factors: None History of: None Modifying Factors: Nothing Associated Signs and Symptoms: Other Past Medical History PAST MEDICAL HISTORY: Anxiety, Arthritis, Depression, Gout, High Lipids, HTN 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: 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 (Other): pituitary gland PASSENGER REPRESENTATIVE History: No Pertinent PASSENGER REPRESENTATIVE History Family History Family History: Reviewed,noncontributory to illness Social History Smoker: Non-Smoker Alcohol: Denies ETOH Use Drugs: Denies Drug Use Lives In: Home Constitutional: denies: chills, diaphoresis, fatigue, fever, malaise, sweats, weakness, others EENTM: reports: blurred vision; denies: double vision, ear bleeding, ear discharge, ear drainage, ear pain, ear ringing, eye pain, eye redness, hearing loss, mouth pain, mouth swelling, nasal discharge, nose bleeding, nose congestion, nose pain, photophobia, tearing, throat pain, throat swelling, voice changes, others Respiratory: denies: cough, hemoptysis, orthopnea, SOB at rest, shortness of breath, SOB with excertion, stridor, wheezing, others Cardiovascular: denies: chest pain, dizzy spells, diaphoresis, Dyspnea on exertion, edema, irregular heart beat, left arm pain, lightheadedness, palpitations, PND, syncope, others Gastrointestinal: denies: abdomen distended, abdominal pain, blood streaked bowels, constipated, diarrhea, dysphagia, difficulty swallowing, hematemesis, melena, nausea, poor appetite, poor fluid intake, rectal bleeding, rectal pain, vomiting, others Genitourinary: denies: abnormal vagina bleeding, burning, dyspareunia, dysuria, flank pain, frequency, hematuria, incontinence, pain, , vagina discharge, urgency, others Neurological: reports: headache; denies: dizziness, fainting, left sided numbness, left sided weakness, numbness, paresthesia, pre-existing deficit, right sided numbness, right sided weakness, seizure, speech problems, tingling, tremors, weakness, others Musculoskeletal: denies: back pain, gout, joint pain, joint swelling, muscle pain, muscle stiffness, neck pain, others Integumetry: denies: bruises, change in color, change in hair/nails, dryness, laceration, lesions, lumps, rash, wounds, others Allergic/Immunocompromised: denies: Difficulty Healing, Frequent Infections, Hives, Itching, others Hematologic/Lymphatic: denies: anemia, blood clots, easy bleeding, easy bruising, swollen glands, others Endocrine: denies: excessive hunger, excessive sweating, excessive thirst, excessive urination, flushing, intolerance to cold, intolerance to heat, unexplained weight gain, unexplained weight loss, others Psychiatric: denies: anxiety, bipolar disorder, depression, hopeless, panic disorder, schizophrenia, sleepless, suicidal, others All Other Systems: Reviewed and Negative Physical Exam General Appearance: No Apparent Distress HEENT: Normal ENT Inspection, Pharynx Normal, TMs Normal Neck: Full Range of Motion, Non-Tender, Normal, Normal Inspection Respiratory: Chest Non-Tender, Lungs Clear, No Accessory Muscle Use, No Respiratory Distress, Normal Breath Sounds Cardiovascular: No Edema, No JVD, No Murmur, No Gallop, Normal Peripheral Pulses, Regular Rate/Rhythm Breast Exam: Deferred Gastrointestinal: No Organomegaly, Non Tender, No Pulsatile Mass, Normal Bowel Sounds, Soft Genitalia: Deferred Pelvic: Deferred Rectal: Deferred Extremities: No calf tenderness, Normal capillary refill, Normal inspection, Normal range of motion, Non-tender, No pedal edema Musculoskeletal : Apperance: Normal Neurologic: Alert, wireworker supervisor II-XII nml as Tested, No Motor Deficits, Normal Affect, Normal Mood, No Sensory Deficits Cerebellar Function: Normal Reflexes: Normal Skin: Dry, Normal Color, Warm Lymphatic: No Adenopathy Was a procedure done? Was a procedure done?: No CP Differential Dx Differential Diagnosis: N/A Differential Diagnosis: CHF, HTN Essential, HTN Accelerated X-Ray, Labs, Meds, VS Vital Signs Date Time Temp Pulse Resp B/P (MAP) Pulse Ox O2 Delivery O2 Flow Rate FiO2 10/21/24 20:40 97.8 82 18 175/91 (119) 98 97.8 Lab Test 10/21/24 21:15 Range/Units White Blood Count 5.0 4.4-10.8 10^3/uL Red Blood Count 4.47 4.0-5.20 10^6/uL Hemoglobin 14.4 12.2-16.2 g/dL Hematocrit 42.0 36.0-46.0 % Mean Corpuscular Volume 93.9 80.0-100.0 fL Mean Corpuscular Hemoglobin 32.3 H 28.0-32.0 pg Mean Corpuscular Hemoglobin Concent 34.3 32.0-36.0 g/dL Red Cell Distribution Width 15.1 H 11.8-14.3 % Platelet Count 127 L 140-450 10^3/uL Mean Platelet Volume 8.8 6.9-10.8 fL Neutrophils (%) (Auto) 58.1 37.0-80.0 % Lymphocytes (%) (Auto) 31.1 10.0-50.0 % Monocytes (%) (Auto) 7.3 0.0-12.0 % Eosinophils (%) (Auto) 2.3 0.0-7.0 % Basophils (%) (Auto) 1.2 0.0-2.0 % Neutrophils # (Auto) 2.9 1.6-8.6 10 ^3/uL Lymphocytes # (Auto) 1.6 0.4-5.4 10 ^3/uL Monocytes # (Auto) 0.4 0-1.3 10 ^3/uL Eosinophils # (Auto) 0.1 0-0.8 10 ^3/uL Basophils # (Auto) 0.1 0-0.2 10 ^3/uL Nucleated Red Blood Cells 0.0 % Sodium Level 142 136-145 mmol/L Potassium Level 4.2 3.5-5.1 mmol/L Chloride Level 108 H 98-107 mmol/L Carbon Dioxide Level 27 20-31 mmol/L Anion Gap 7 5-15 Blood Urea Nitrogen 15 9-23 mg/dL Creatinine 0.86 0.550-1.02 mg/dL Glomerular Filtration Rate Calc 70 >90 mL/min BUN/Creatinine Ratio 17.4 10.0-20.0 Serum Glucose 102 74-106 mg/dL Calcium Level 10.1 8.7-10.4 mg/dL The patient's CBC and chemistry panel is within normal limits The patient was being discharged The patient did receive clonidine 0.1 mg by mouth The patient will return to the emergency department's the condition worsens Time of 1ST Reevaluation: 21:00 Reevaluation 1ST: Unchanged Patient Education/Counseling: Diagnosis, Treatment, Prognosis, Need For Follow Up Family Education/Counseling: No Family Present Departure 1 Departure Time of Disposition: 22:02 Impression: Primary Impression: Hypertensive urgency Disposition: 01 HOME / SELF CARE / HOMELESS Condition: Fair Discharged With: Self Critical Care Note Critical Care Time?: No Stability Stability form required: No I personally scribed for TEA GOEL MD ([email or web address]) on 10/21/24 at 21:03. Electronically submitted by Tereza Frank ([facility]). TEA GOEL MD Oct 21, 2024 21:03
[2024-10-21 21:24] LABS: Basophils # (auto) 0.1 10 ^3/uL (0-0.2); Basophils % (auto) 1.2 % (0.0-2.0); Eosinophils # (auto) 0.1 10 ^3/uL (0-0.8); Eosinophils % (auto) 2.3 % (0.0-7.0); Hemoglobin 14.4 g/dL (12.2-16.2); Lymphocytes # (auto) 1.6 10 ^3/uL (0.4-5.4); Lymphocytes % (auto) 31.1 % (10.0-50.0); Mean Corpuscular Hemoglobin 32.3 pg (28.0-32.0); Mean Corpuscular Hgb Conc. 34.3 g/dL (32.0-36.0); Mean Corpuscular Volume 93.9 fL (80.0-100.0); Monocytes # (auto) 0.4 10 ^3/uL (0-1.3); Monocytes % (auto) 7.3 % (0.0-12.0); Neutrophils # (auto) 2.9 10 ^3/uL (1.6-8.6); Neutrophils % (auto) 58.1 % (37.0-80.0); Platelet Count (auto) 127 10^3/uL (140-450); Red Blood Cells 4.47 10^6/uL (4.0-5.20); Red Cell Distribution Width 15.1 % (11.8-14.3)
[2024-10-21 21:37] LABS: Potassium 4.2 mmol/L (3.5-5.1); Sodium 142 mmol/L (136-145)
[2024-10-21 21:38] LABS: Anion Gap 7 (5-15); Calcium 10.1 mg/dL (8.7-10.4); Carbon Dioxide 27 mmol/L (20-31)
[2024-10-21 21:40] LABS: Chloride 108 mmol/L (98-107)
[2024-10-21 21:43] LABS: BUN/Creatinine Ratio 17.4 (10.0-20.0); Blood Urea Nitrogen 15 mg/dL (9-23); Glucose 102 mg/dL (74-106)
[2024-10-21] MEDS: cloNIDine HCL 0.1 MG TAB PO ONE (22:41)
[2024-10-21 22:43] VITALS: PULSE 73; RESP 20; O2SAT 98
[2024-10-21 23:45] VITALS: BP 154/83; PULSE 70; RESP 20; TEMP 98.7; O2SAT 100
[2024-10-22] MEDS ORDERED: LOSA-533 PO (20:39)
== END 2024-10-21 23:47 | disposition home or self-care (01) ==
LOC: ER 20:40
DX: I16.0 Hypertensive urgency (principal); H53.8 Other visual disturbances; E78.5 Hyperlipidemia, unspecified; F41.9 Anxiety disorder, unspecified; F32.A Depression, unspecified; M10.9 Gout, unspecified; M19.90 Unspecified osteoarthritis, unspecified site; Z79.82 Long term (current) use of aspirin; Z79.899 Other long term (current) drug therapy; Z88.5 Allergy status to narcotic agent
CPT/HCPCS: 36415; 80048; 85025

== ENCOUNTER 2024-10-22 11:50 | Inpatient (IN) | payer OTHER, MEDICAID ==
[~2024-10-22] VITALS: Ht 157.5 cm; Wt 79.4 kg
--- NOTE | 2024-10-22 12:00 | ED.PDOC ---
HPI Comments 74 y.o female with PMHx of HTN, gout, hyperlipidemia, and preDM, presents to the ED for an evaluation of high blood pressure associated with a generalized headache and nausea that started yesterday. Patient reports measuring blood pressure at home, read high. Patient was taking Lisinopril but recently PCP switched her to Losartan. Patient denies any chest pain, fever, chills, SOB, nausea, vomiting. EMS reports patient's blood pressure monitor read 190 systolic but on their machine, it read 152/78 and 161/83. Chief Complaint: Headache Time Seen by MD: 11:56 Primary Care Provider: CANDIS Reviewed Notes: Nurses Notes, Sales Agent [employer] Notes, Medications, Allergies Allergies: Coded Allergies: Nifedipine (Verified Allergy, Severe, 12/11/17) Hydrocodone (Verified Allergy, Unknown, 10/11/18) Home Meds Active Scripts Potassium Chloride (POTASSIUM CHLORIDE CR) 10 Meq Tb, 1 TAB PO DAILY for 5 Days, #5 TAB 0 Refills Prov:GRAYSON OROZCO COMMERCIAL LOAN SPECIALIST 09/18/24 Ondansetron Odt 4MG Tab (ZOFRAN PO) 4 Mg Tb, 4 MG PO 6XD PRN, #30 TAB ODT TAB-DISSOLVE IN MOUTH, THEN SWALLOW Prov:SRI GRIFFIN MD 02/24/24 Alprazolam (Xanax) 0.25 Mg Tb, 1 TAB PO BID PRN, #10 TAB Prov:SRI GRIFFIN MD 02/24/24 Meclizine HCl (Meclizine 25) 25 Mg Tab, 25 MG PO 6XD PRN, #30 TAB Prov:SRI GRIFFIN MD 02/24/24 Primidone (MYSOLINE TABLET) 50 Mg Tb, 100 MG PO BID for 14 Days, #56 TAB Prov:FRANCES GUERRA MD 12/16/22 Reported Medications Metoprolol Tartrate (Metoprolol Tartrate) 25 Mg Tab, 25 MG PO for 30 Days, MG 10/17/18 Aspirin (Aspir-Low) 81 Mg Tab, 81 MG PO DAILY for 30 Days, MG 10/17/18 Allopurinol (Allopurinol) 300 Mg Tab, 300 MG PO DAILY for 30 Days, MG 09/22/18 Lisinopril (Lisinopril) 20 Mg Tab, 20 MG PO DAILY for 30 Days, MG 09/22/18 Senna (Senna Lax) 8.6 Mg Tab, 8.6 MG PO Q12HR, MG 09/22/18 Omeprazole (Omeprazole) 20 Mg Cap, 20 MG PO BID, CAP 09/22/18 Propranolol HCl (Propranolol Hydrochloride) 20 Mg Tab, 20 MG PO BID, TAB 09/22/18 Information Source: Patient, Emergency Med Personnel Mode of Arrival: EMS Severity: Moderate Timing: Days (1) Duration: Since onset Onset: At Rest Cardiac Risk Factors: HTN PE Risk Factors: None History of: None Modifying Factors: Nothing Associated Signs and Symptoms: N/V Past Medical History PAST MEDICAL HISTORY: Anxiety, Arthritis, Depression, Gout, High Lipids, HTN 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: 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 History: No Pertinent GOLF INSTRUCTOR History Family History Family History: Reviewed,noncontributory to illness Social History Smoker: Non-Smoker Alcohol: Denies ETOH Use Drugs: Denies Drug Use Lives In: Home Constitutional: denies: chills, diaphoresis, fatigue, fever, malaise, sweats, weakness, others EENTM: denies: blurred vision, double vision, ear bleeding, ear discharge, ear drainage, ear pain, ear ringing, eye pain, eye redness, hearing loss, mouth pain, mouth swelling, nasal discharge, nose bleeding, nose congestion, nose pain, photophobia, tearing, throat pain, throat swelling, voice changes, others Respiratory: denies: cough, hemoptysis, orthopnea, SOB at rest, shortness of breath, SOB with excertion, stridor, wheezing, others Cardiovascular: denies: chest pain, dizzy spells, diaphoresis, Dyspnea on exertion, edema, irregular heart beat, left arm pain, lightheadedness, palpitations, PND, syncope, others Gastrointestinal: reports: nausea; denies: abdomen distended, abdominal pain, blood streaked bowels, constipated, diarrhea, dysphagia, difficulty swallowing, hematemesis, melena, poor appetite, poor fluid intake, rectal bleeding, rectal pain, vomiting, others Genitourinary: denies: abnormal vagina bleeding, burning, dyspareunia, dysuria, flank pain, frequency, hematuria, incontinence, pain, , vagina discharge, urgency, others Neurological: reports: headache; denies: dizziness, fainting, left sided numbness, left sided weakness, numbness, paresthesia, pre-existing deficit, right sided numbness, right sided weakness, seizure, speech problems, tingling, tremors, weakness, others Musculoskeletal: denies: back pain, gout, joint pain, joint swelling, muscle pain, muscle stiffness, neck pain, others Integumetry: denies: bruises, change in color, change in hair/nails, dryness, laceration, lesions, lumps, rash, wounds, others Allergic/Immunocompromised: denies: Difficulty Healing, Frequent Infections, Hives, Itching, others Hematologic/Lymphatic: denies: anemia, blood clots, easy bleeding, easy bruising, swollen glands, others Endocrine: denies: excessive hunger, excessive sweating, excessive thirst, excessive urination, flushing, intolerance to cold, intolerance to heat, unexplained weight gain, unexplained weight loss, others Psychiatric: denies: anxiety, bipolar disorder, depression, hopeless, panic disorder, schizophrenia, sleepless, suicidal, others All Other Systems: Reviewed and Negative Physical Exam General Appearance: Mild Distress HEENT: Normal ENT Inspection, Pharynx Normal, TMs Normal Neck: Full Range of Motion, Non-Tender, Normal, Normal Inspection Respiratory: Chest Non-Tender, Lungs Clear, No Accessory Muscle Use, No Respiratory Distress, Normal Breath Sounds Cardiovascular: No Edema, No JVD, No Murmur, No Gallop, Normal Peripheral Pulses, Regular Rate/Rhythm Breast Exam: Deferred Gastrointestinal: No Organomegaly, Non Tender, No Pulsatile Mass, Normal Bowel Sounds, Soft Genitalia: Deferred Pelvic: Deferred Rectal: Deferred Extremities: No calf tenderness, Normal capillary refill, Normal inspection, Normal range of motion, Non-tender, No pedal edema Musculoskeletal : Apperance: Normal Neurologic: Alert, hot head machine operator II-XII nml as Tested, No Motor Deficits, Normal Affect, Normal Mood, No Sensory Deficits Cerebellar Function: Normal Reflexes: Normal Skin: Dry, Normal Color, Warm Lymphatic: No Adenopathy Was a procedure done? Was a procedure done?: No CP Differential Dx Differential Diagnosis: N/A Differential Diagnosis: CHF, HTN Essential, HTN Accelerated, Other (anxiety ) X-Ray, Labs, Meds, VS Vital Signs Date Time Temp Pulse Resp B/P (MAP) Pulse Ox O2 Delivery O2 Flow Rate FiO2 10/22/24 11:59 98.0 62 18 161/83 (109) 100 98.0 CAT scan of the head shows: No sign of any abnormalities The patient had blood work done yesterday which was within normal limits The patient was still symptomatic and had an elevated blood pressure at home and it has remained somewhat elevated The patient was being admitted at this time. Images Reviewed?: Images reviewed and evaluated by me Time of 1ST Reevaluation: 11:59 Reevaluation 1ST: Unchanged Patient Education/Counseling: Diagnosis, Treatment, Prognosis Family Education/Counseling: No Family Present Departure 1 Departure Time of Disposition: 13:26 Impression: Primary Impression: Accelerated hypertension Additional Impression: Generalized weakness Disposition: ADMITTED INPATIENT Admit to: Tele Condition: Fair Critical Care Note Critical Care Time?: No Stability Stability form required: Yes Unstable for transfer: Telemetry monitoring (Telemetry monitoring required), ED Physician Assesment (Clinical assesment) I personally scribed for TEA GOEL MD ([email or web address]) on 10/22/24 at 12:00. Electronically submitted by Tereza Frank ([facility]). TEA GOEL MD Oct 22, 2024 12:00
--- NOTE | 2024-10-22 12:43 | DVH ---
EXAM: CT HEAD WITHOUT CONTRAST HISTORY: ROSS COMPARISON: CT HEAD WITHOUT CONTRAST on DOS: 02/24/24, HEAD WITHOUT CONTRAST on DOS: 05/13/22 TECHNIQUE: Axial images of the head were obtained and reformatted in coronal and sagittal planes. All CT scans at this medical facility are performed using dose modulation techniques as appropriate t o a performed exam including the following: Automated exposure control was utilized; adjustment of th e MA and/or KV according to patient size; and use of iterative reconstruction technique. CT Dose: CTDI volume is 54 mGy. Dose-length product is 1069 mGy*cm FINDINGS: There is no evidence of acute intracranial hemorrhage, mass, mass effect midline shift. There is no h ydrocephalus or extra-axial fluid collection. Carlos-white matter differentiation is maintained. The visualized paranasal sinuses and mastoid air cells are clear. The calvarium is intact. IMPRESSION: 1. No acute intracranial process. HS:Y
[2024-10-22 14:32] VITALS: PULSE 58; RESP 14; O2SAT 95
--- NOTE | 2024-10-22 14:42 | DVHHP2 ---
History of Present Illness Reason for Visit: headache and elevated blood pressure History of Present Illness 74 yr old female pmh htn gout, hld, pre dm, anxiety, arthritis, depression, c sec cc here headache and patient had concerned for elevated blood pressure she has been dealing with it for a week. She states she seen her primary medical doctor they stopped lisinopril and they started her on another medication that she does not know the name on tuesday. Encouraged patient to bring the medication in for evaluation. It is but she stated that since the change of the blood pressure medication her symptoms gotten worse. She states when blood pressure is elevated her headache is usually coming on. pt was seen at er [facility] and discharged home. She also stated she had some nausea. No chest pain no shortness with the breath. When evaluating patient's labs and imaging from ED CBC was unremarkable platelet count was 127 CMP was negative it was unremarkable CT scan of the brain was unremarkable. With these findings we will admit patient for BP management and pain control for headache Past Medical History see HPi above Past 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 Family History Reviewed, non-contributory to the management of this case. Past Social History The patient lives at home, denies smoking, alcohol or illicit drugs abuse. Review of Systems Constitutional: No: Fever, Chills, Sweats, Weakness, Malaise, Other Eyes: No: Pain, Vision change, Conjunctivae inflammation, Eyelid inflammation, Other, Redness ENT: No: Ear pain, Ear discharge, Nose pain, Nose discharge, Nose congestion, Mouth pain, Mouth swelling, Throat pain, Throat swelling, Other Respiratory: No: Cough, Dry, Shortness of breath, SOB with excertion, Wheezing, Hemoptysis, Pleuritic Pain, Sputum, Wheezing, Other Cardiovascular: No: Chest Pain, Palpitations, Orthopnea, Paroxysmal Noc. Dyspnea, Edema, Lt Headedness, Other Gastrointestinal: No: Nausea, Vomiting, Abdominal Pain, Diarrhea, Constipation, Melena, Hematochezia, Other Genitourinary: No Dysuria, No Frequency, No Incontinence, No Hematuria, No Retention, No Other Musculoskeletal: No: other, neck pain, shoulder pain, arm pain, back pain, hand pain, leg pain, foot pain Skin: No: Rash, Lesions, Jaundice, Bruising, Other Neurological: Other (headache ); No: Weakness, Numbness, Incoordination, Change in speech, Confusion, Seizures Allergies: Coded Allergies: Nifedipine (Verified Allergy, Severe, 12/11/17) Hydrocodone (Verified Allergy, Unknown, 10/11/18) Exam Vital Signs Vital Signs Date Time Temp Pulse Resp B/P (MAP) Pulse Ox O2 Delivery O2 Flow Rate FiO2 10/22/24 14:32 97.9 58 14 150/79 (102) 95 97.9 General Appearance: Alert, Oriented X3, Cooperative, No acute distress HEENT: Atraumatic, PERRLA, EOMI, Mucous membr. moist/pink Respiratory: Clear to auscultation, Normal air movement Cardiovascular: Regular rate, Normal S1, Normal S2, No murmurs Abdominal: Normal bowel sounds, Soft, No tenderness, No hepatospenomegaly, No masses Extremities: No clubbing, No cyanosis, No edema, Normal pulses, No tenderness/swelling Skin: No rashes, No breakdown, No significant lesion Neuro: Normal speech, Strength at 5/5 X4 ext, Normal tone, Sensation intact, Cranial nerves 3-12 NL Psych/Mental Status: Mental status NL, Mood NL Labs/Xrays CT scan of the brain unremarkable I reviewed labs, imaging CT scan abdomen pelvis, EKG and all diagnostic studies on this patient from ED records and the medical chart Assessment/Plan Assessment/Plan acute intractable headache ct brain negative ordered morphine as needed pain ordered zofran prn nausea acute hypertension urgency cont home dose of lisinopril ordered hydralazine prn elevated blood pressure chronic problem with continuation of home medication htn gout hld predm anxiety arthritis depression ?seizure plan admit to medicine Plan discussed with: Patient Date of Service: Oct 22, 2024 Billing Provider: AKUA MENSAH DNP Common Visit Codes: [id number] INP/OBS CARE (HIGH) AKUA MENSAH DNP Oct 22, 2024 14:42
[2024-10-22] MEDS ORDERED: DOCUSATE SOD 100 MG CAP PO PRN (16:15)
[2024-10-22] MEDS ORDERED: TEMAZEPAM 15 MG CAP PO PRN (16:15)
[2024-10-22] MEDS ORDERED: NITROGLYCERIN 0.4 MG SL TAB SL PRN (16:15)
[2024-10-22] MEDS ORDERED: MORPHINE SULFATE INJ 2 MG/ml SYRG IV PRN ×2 (16:15)
[2024-10-22] MEDS ORDERED: LOSA-533 PO (20:39)
[2024-10-22 20:50] VITALS: PULSE 70; RESP 16; O2SAT 95
[2024-10-22 21:19] LABS: Urine Bacteria None Seen /hpf (None Seen)
[2024-10-22 21:33] LABS: Urine Blood Negative /uL (Negative); Urine Clarity Clear (Clear); Urine Color Colorless (Yellow); Urine Protein, UAD Negative (Negative); Urine Specific Gravity 1.005 (1.001-1.035); Urine Squamous Epithelial Cell None Seen /hpf (<5); Urine Urobilinogen Normal (Negative)
[2024-10-22 21:38] LABS: Urine WBC 1 /HPF (0-5)
[2024-10-22] MEDS: PRIMIDONE 50 MG TAB PO SCH (22:00)
[2024-10-22] MEDS: PROPRANOLOL HCL 20 MG TAB PO SCH (22:00)
[2024-10-22] MEDS: METOPROLOL TARTRATE 25 MG TAB PO SCH (22:35)
[2024-10-22] MEDS: SENNA 8.6 MG TAB PO SCH (22:35)
[2024-10-23] VITALS (11 sets, daily range): BP systolic 114–173; BP diastolic 65–88; PULSE 57–70; RESP 13–18; TEMP 97.6–98.2; O2SAT 94–98
[2024-10-23] MEDS: ACETAMINOPHEN 325 MG TAB PO PRN (00:48)
[2024-10-23 07:50] LABS: Basophils # (auto) 0 10 ^3/uL (0-0.2); Eosinophils # (auto) 0.1 10 ^3/uL (0-0.8); Eosinophils % (auto) 2.5 % (0.0-7.0); Hematocrit 39.8 % (36.0-46.0); Hemoglobin 13.4 g/dL (12.2-16.2); Lymphocytes # (auto) 1.2 10 ^3/uL (0.4-5.4); Lymphocytes % (auto) 29.9 % (10.0-50.0); Mean Corpuscular Hemoglobin 31.7 pg (28.0-32.0); Mean Corpuscular Hgb Conc. 33.7 g/dL (32.0-36.0); Mean Corpuscular Volume 94.1 fL (80.0-100.0); Monocytes # (auto) 0.3 10 ^3/uL (0-1.3); Monocytes % (auto) 8.5 % (0.0-12.0); Neutrophils # (auto) 2.2 10 ^3/uL (1.6-8.6); Neutrophils % (auto) 58.1 % (37.0-80.0); Nucleated Red Blood Cells % 0.1 %; Platelet Count (auto) 119 10^3/uL (140-450); Red Blood Cells 4.22 10^6/uL (4.0-5.20); Red Cell Distribution Width 15.3 % (11.8-14.3); White Blood Cell 3.9 10^3/uL (4.4-10.8)
[2024-10-23 08:00] LABS: Alanine Aminotransferase 21 U/L (7-40); Alkaline Phosphatase 44 U/L (46-116); Anion Gap 8 (5-15); BUN/Creatinine Ratio 15.7 (10.0-20.0); Blood Urea Nitrogen 13 mg/dL (9-23); Calcium 9.7 mg/dL (8.7-10.4); Carbon Dioxide 25 mmol/L (20-31); Chloride 108 mmol/L (98-107); Glucose 106 mg/dL (74-106); Sodium 141 mmol/L (136-145); Total Protein 6.3 g/dL (5.7-8.2)
[2024-10-23 08:01] LABS: Albumin 3.9 g/dL (3.2-4.8); Aspartate Aminotransferase 19 U/L (13-40); Bilirubin, Total 0.6 mg/dL (0.2-1.0)
[2024-10-23] MEDS: ASPirin-EC 81 mg tab PO SCH (08:32)
[2024-10-23] MEDS: hydrALAZINE HCL 20 MG/ML VL IV PRN (11:18)
[2024-10-23] MEDS: ONDANSETRON HCL 4 MG/2 ML VIAL IV PRN (11:37)
[2024-10-23] MEDS ORDERED: hydrALAZINE HCL 10 MG TAB PO PRN (12:00)
[2024-10-23] MEDS: hydrALAZINE HCL 10 MG TAB PO ONE (12:00)
[2024-10-23] MEDS: FAMOTIDINE 20 MG TAB PO ONE (12:54)
[2024-10-23] MEDS: ALLOPURINOL 100 MG TAB PO ONE (12:55)
[2024-10-23] MEDS: LOSARTAN POTASSIUM 50 MG TAB PO ONE (12:55)
[2024-10-23] MEDS: MECLIZINE HCL 25 MG TAB PO PRN (15:09)
--- NOTE | 2024-10-23 16:42 | DVHPNRES ---
Progress Note Date Seen: Oct 23, 2024 Resident Creating Document: RASHARD SHEFFIELD RESIDENT Medical Necessity Reason Pt with a Central, PICC or Fol: No Subjective Patient reports: No new complaints Changes from previous H/P or p: No Changes Review of Systems: HEENT:Normal, CVS:Normal, RESPIRATORY:Normal, GI:Normal, :Normal, MSK:Abnormal, NEURO:Abnormal Objective vital signs Vital Sign Date Time Temp Pulse Resp B/P (MAP) Pulse Ox O2 Delivery O2 Flow Rate FiO2 10/23/24 13:27 97.9 97.9 10/23/24 12:55 114/71 10/23/24 12:55 67 16 96 10/23/24 08:00 Room Air* 0 21 medications Current Medications Medications Dose Ordered Sig/[place] Route Start Time Stop Time Status Last Admin Dose Admin Temazepam 15 mg QHSP PRN PO 10/22/24 16:15 Ondansetron HCl 4 mg Q4HP PRN IV 10/22/24 16:15 10/23/24 11:37 4 MG Docusate Sodium 100 mg BIDPRN PRN PO 10/22/24 16:15 Morphine Sulfate 2 mg Q4HPRN PRN IV 10/22/24 16:15 Hold Nitroglycerin 0.4 mg Q5MINP PRN SL 10/22/24 16:15 Morphine Sulfate 2 mg Q30M PRN IV 10/22/24 16:15 Hold Aspirin 81 mg DAILY PO 10/23/24 10:00 10/23/24 08:32 81 MG Meclizine HCl 25 mg Q6HR PRN PO 10/22/24 16:15 10/23/24 15:09 25 MG Metoprolol Tartrate 25 mg BID PO 10/22/24 22:00 10/23/24 08:32 25 MG Primidone 100 mg BID PO 10/22/24 22:00 10/23/24 08:33 100 MG Sennosides 8.6 mg Q12HR PO 10/22/24 22:00 10/23/24 08:33 8.6 MG Acetaminophen 650 mg Q6HP PRN PO 10/23/24 00:15 10/23/24 16:15 650 MG Famotidine 20 mg DAILY PO 10/24/24 10:00 Losartan Potassium 25 mg DAILY PO 10/24/24 10:00 Hydralazine HCl 10 mg Q6HP PRN PO 10/23/24 12:00 Allopurinol 300 mg DAILY PO 10/24/24 10:00 Examination General Appearance: Alert, Oriented X3, Cooperative, No acute distress HEENT: Atraumatic, PERRLA, EOMI, Mucous membr. moist/pink Respiratory: Clear to auscultation, Normal air movement Cardiovascular: Regular rate, Normal S1, Normal S2, No murmurs Abdominal: Normal bowel sounds, Soft, No tenderness, No hepatospenomegaly, No masses Extremities: No clubbing, No cyanosis, No edema, Normal pulses, No tenderness/swelling Skin: No rashes, No breakdown, No significant lesion Neuro: Normal speech, Strength at 5/5 X4 ext, Normal tone, Sensation intact, Cranial nerves 3-12 NL Psych/Mental Status: Mental status NL, Mood NL laboratory and microbiology Laboratory Tests 10/23/24 07:04 Test 10/23/24 07:04 Range/Units Serum Glucose 106 74-106 mg/dL Problem List/Assessment/Plan Problem List/Assessment/Plan Hypertensive urgency -continue home medication losartan 25 mg p.o. daily -metoprolol 25 mg p.o. b.i.d. -hydralazine 10 mg p.o. q.6 p.r.n. blood pressure greater than 150. Intractable headache likely related to above -head CT scan on 10/22/2024: No acute intracranial abnormality History of gout -continue allopurinol 300 mg p.o. daily Prediabetic HGB A1c 5.8 on 07/03/2021 -repeat HGB A1c GERD -Protonix 40 mg p.o. daily Depression, no suicidal ideation -sertraline 50 mg p.o. daily Goals of care discussed greater than 24 minutes, full code status. Plan discussed with Dr. Jimenez Plan discussed with: Patient, Other (RN) My Orders My Orders Orders - RASHARD SHEFFIELD Procedure Category Date Status Time Famotidine Tablet PHA 10/24/24 In Process (Pepcid Tablet) 10:00 Losartan Tablet PHA 10/24/24 In Process (Cozaar Tablet) 10:00 Hydralazine Hcl PHA 10/23/24 In Process Tablet (Apresoline 12:00 Allopurinol Tablet PHA 10/24/24 In Process (Zyloprim Tablet) 10:00 Date of Service: Oct 23, 2024 Billing Provider: VIGNESH JIMENEZ MD Common Visit Codes: [id number] INP/OBS CARE(HIGH) Secondary Visit Codes: [id number] CARE PLAN 30 MINUTES RASHARD SHEFFIELD RESIDENT Oct 23, 2024 16:42 VIGNESH JIMENEZ MD Oct 23, 2024 18:32
[2024-10-24] VITALS (7 sets, daily range): BP systolic 103–133; BP diastolic 30–71; PULSE 58–63; RESP 17–18; TEMP 97.5–98.2; O2SAT 92–96
[2024-10-24] MEDS: LOSARTAN POTASSIUM 25 MG TAB PO SCH (09:14)
[2024-10-24] MEDS: FAMOTIDINE 20 MG TAB PO SCH (09:14)
[2024-10-24] MEDS: ALLOPURINOL 100 MG TAB PO SCH (09:16)
[2024-10-24 09:57] LABS: Hepatitis B Surface Antibody Negative (Negative)
--- NOTE | 2024-10-24 10:32 | DVHDSRES ---
Discharge Summary Date of Admission Resident Creating Document: RASHARD SHEFFIELD RESIDENT Oct 22, 2024 at 16:02 Date of Discharge: Oct 24, 2024 Admitting Diagnosis Hypertensive urgency Labs/Diagnostic Data: Laboratory Results Test 10/23/24 07:04 10/22/24 13:37 White Blood Count 3.9 10^3/uL (4.4-10.8) Red Blood Count 4.22 10^6/uL (4.0-5.20) Hemoglobin 13.4 g/dL (12.2-16.2) Hematocrit 39.8 % (36.0-46.0) Mean Corpuscular Volume 94.1 fL (80.0-100.0) Mean Corpuscular Hemoglobin 31.7 pg (28.0-32.0) Mean Corpuscular Hemoglobin Concent 33.7 g/dL (32.0-36.0) Red Cell Distribution Width 15.3 % (11.8-14.3) Platelet Count 119 10^3/uL (140-450) Mean Platelet Volume 8.8 fL (6.9-10.8) Neutrophils (%) (Auto) 58.1 % (37.0-80.0) Lymphocytes (%) (Auto) 29.9 % (10.0-50.0) Monocytes (%) (Auto) 8.5 % (0.0-12.0) Eosinophils (%) (Auto) 2.5 % (0.0-7.0) Basophils (%) (Auto) 1.0 % (0.0-2.0) Neutrophils # (Auto) 2.2 10 ^3/uL (1.6-8.6) Lymphocytes # (Auto) 1.2 10 ^3/uL (0.4-5.4) Monocytes # (Auto) 0.3 10 ^3/uL (0-1.3) Eosinophils # (Auto) 0.1 10 ^3/uL (0-0.8) Basophils # (Auto) 0 10 ^3/uL (0-0.2) Nucleated Red Blood Cells 0.1 % Sodium Level 141 mmol/L (136-145) Potassium Level 4.0 mmol/L (3.5-5.1) Chloride Level 108 mmol/L (98-107) Carbon Dioxide Level 25 mmol/L (20-31) Anion Gap 8 (5-15) Blood Urea Nitrogen 13 mg/dL (9-23) Creatinine 0.83 mg/dL (0.550-1.02) Glomerular Filtration Rate Calc 73 mL/min (>90) BUN/Creatinine Ratio 15.7 (10.0-20.0) Serum Glucose 106 mg/dL (74-106) Uric Acid 2.5 mg/dL (3.1-7.8) Calcium Level 9.7 mg/dL (8.7-10.4) Total Bilirubin 0.6 mg/dL (0.2-1.0) Aspartate Amino Transferase (AST) 19 U/L (13-40) Alanine Aminotransferase (ALT) 21 U/L (7-40) Alkaline Phosphatase 44 U/L (46-116) Total Protein 6.3 g/dL (5.7-8.2) Albumin 3.9 g/dL (3.2-4.8) Hepatitis B Surface Antibody Negative (Negative) Urine Color Colorless (Yellow) Urine Clarity Clear (Clear) Urine pH 7.0 (5.0-9.0) Urine Specific [place] 1.005 (1.001-1.035) Urine Protein Negative (Negative) Urine Ketones Negative (Negative) Urine Blood Negative /uL (Negative) Urine Nitrite Negative (Negative) Urine Bilirubin Negative (Negative) Urine Urobilinogen Normal mg/dL (Negative) Urine Leukocyte Esterase Negative /uL (Negative) Urine RBC 1 /hpf (0 - 4) Urine Microscopic WBC 1 /HPF (0-5) Urine Squamous Epithelial Cells None seen /hpf (<5) Urine Bacteria None seen /hpf (None Seen) Urine Glucose Normal mg/dL (Normal) Other Laboratory Tests 10/23/24 07:04 Brief Hx & Hospital Course: Patient is 74-year-old female with past medical history of hypertension, gout, prediabetes, GERD, depression who came to the hospital with a chief complaint of intractable headache. Patient underwent CT scan on 10/22/2024 which was unremarkable. Patient was given. Antihypertensive medication including losartan 25 mg p.o. daily, metoprolol 25 mg p.o. b.i.d. and hydralazine as needed. With a blood pressure control, patient was headache also significantly improved. Given patient blood pressure under control, no any other acute symptoms, patient will be discharged home in orders to follow with primary care physician. Patient advised to come to the hospital if symptom recurs or worsens. Condition at Discharge: Stable Final Diagnosis/Problems List Hypertensive urgency Intractable headache likely related to above History of gout Prediabetic HGB A1c 5.8 on 07/03/2021 GERD Depression, no suicidal ideation Discharge Disposition: Home Discharge Instruct/Medications Diet: Cardiac 2g Na,low cholest Activity: No Restrictions, As Tolerated Follow Up/Referral: Follow up in [place] clinic two weeks Medications: See prescription Discharge Statement: "Patient was advised to return to the ER or call 911 if any headaches, dizziness, shortness of breath, chest pain, abdominal pain, bleeding, fevers, or worsening of medical condition. Patient was counseled about treatment plan, medications, possible side effects, patientverbalized understanding. All questions were answered to the best of my ability. This discharge took greater then 30 minutes in planning, reviewing documentation, counseling the patient, and discussing with other team members." ASSESSMENT ASSESSMENT Assessment Hypertensive urgency Intractable headache likely due to above Date of Service: Oct 24, 2024 Billing Provider: VIGNESH MOSLEY MD Common Visit Codes: [id number]-RUP/OBS DISCH DAY >30min RASHARD SHEFFIELD RESIDENT Oct 24, 2024 10:32 VIGNESH MOSLEY MD Oct 24, 2024 17:13
[2024-10-24 10:45] LABS: Hepatitis C Antibody Negative (Negative)
== END 2024-10-24 18:30 | disposition home or self-care (01) | DRG 305 ==
LOC: EDBD 11:50 → ER 11:50 → OVERFLOW 16:02 → TELE-WESTW 23:41
PROVIDERS: ADMIT Internal Medicine; ATTEND Internal Medicine
DX: I16.0 Hypertensive urgency (principal); M10.9 Gout, unspecified; F41.9 Anxiety disorder, unspecified; E78.5 Hyperlipidemia, unspecified; F32.A Depression, unspecified; M19.90 Unspecified osteoarthritis, unspecified site; K21.9 Gastro-esophageal reflux disease without esophagitis; I10 Essential (primary) hypertension; R73.03 Prediabetes; Z88.5 Allergy status to narcotic agent; Z79.899 Other long term (current) drug therapy; Z88.8 Allergy status to other drugs, medicaments and biological substances
CPT/HCPCS: 36415; 70450; 80053; 81001; 84550; 85025; 86706; 86803; G0378; J2405

== ENCOUNTER 2024-10-31 14:58 | Emergency (ER) | payer OTHER, MEDICAID ==
[~2024-10-31] VITALS: Ht 157.5 cm; Wt 73.1 kg
[~2024-10-31 14:58] MED LIST changes: -ALPR0.25 PO; -LISI20TA56 PO; -OME20T PO; -POTA-36 PO; -ZOFR4T PO
[2024-10-31 15:37] LABS: Basophils # (auto) 0 10 ^3/uL (0-0.2); Basophils % (auto) 0.6 % (0.0-2.0); Eosinophils # (auto) 0.1 10 ^3/uL (0-0.8); Eosinophils % (auto) 1.4 % (0.0-7.0); Hematocrit 42.7 % (36.0-46.0); Hemoglobin 14.4 g/dL (12.2-16.2); Lymphocytes # (auto) 1.2 10 ^3/uL (0.4-5.4); Lymphocytes % (auto) 22.9 % (10.0-50.0); Mean Corpuscular Hemoglobin 31.4 pg (28.0-32.0); Mean Corpuscular Hgb Conc. 33.6 g/dL (32.0-36.0); Mean Corpuscular Volume 93.6 fL (80.0-100.0); Monocytes # (auto) 0.3 10 ^3/uL (0-1.3); Monocytes % (auto) 6.9 % (0.0-12.0); Neutrophils # (auto) 3.4 10 ^3/uL (1.6-8.6); Neutrophils % (auto) 68.2 % (37.0-80.0); Platelet Count (auto) 121 10^3/uL (140-450); Red Blood Cells 4.57 10^6/uL (4.0-5.20); Red Cell Distribution Width 14.7 % (11.8-14.3)
--- NOTE | 2024-10-31 15:55 | ED.PDOC ---
HPI Comments HPI: 74-year-old female presents to ED with chief complaint high blood pressure since this morning with associated headache and new onset left shoulder pain. Pt states she is compliant with her HTN meds and took them this morning. Pt also took two Tylenol pills approximately 1 hour ago. Pt believes left shoulder pain may be associated with arthritis. Current pain level 10/10. Vitals Temperature: 98.9F Respiratory rate: 20 SpO2: 95% on RA Heart rate: 77 Blood pressure: 173/80 Past Medical History: HTN, HLD, arthritis Past 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: Denies. Social History: Denies alcohol, tobacco, and illicit drug use. HPI: Poor Historian. REVIEW OF SYSTEMS: CONSTITUTIONAL: Denies acute: fever, diaphoresis, chills, generalized weakness. HEAD: Denies acute: photophobia Eyes: Denies acute: Double vision, vision loss, eye pain, eye discharge. EARS: Denies acute: tinnitus, hearing loss, ear discharge, ear pain, THROAT: Denies acute: sore throat, swelling, difficulty swallowing , pain with swallowing, change in voice. NECK: Denies acute: neck pain, neck swelling, stiff neck. HEART: Denies acute : chest pain, palpitations, LUNGS: Denies acute: SOB, wheezing, cough, hemoptysis ABDOMEN: Denies acute: abdominal pain, Nausea, Vomiting, diarrhea, melena , hematemesis, hematochezia SKIN: Denies acute: rash, redness, lesions, itchiness. EXTREMITIES: Denies acute: calf pain, numbness, tingling, weakness, denies pain in extremity. Denies acute: Low back pain. Neuro: Denies acute: focal neurological deficit, motor or sensory focal neurological deficit, tremors, seizure like activity, confusion, dizziness, change in mental status, loss of bowel or bladder function, cauda equina like symptoms. : Denies acute: dysuria, hematuria, flank pain, increase in urinary frequency. PSYCH: Denies acute: hallucination, suicidal ideation, homicidal ideation. FEMALE: Denies acute: abnormal vaginal bleeding, foul odor, unusual discharge. PHYSICAL EXAM: General: ----fvkv-[id number]----acute distress, awake and alert. Head: normocephalic, atraumatic. Neck: supple, trachea is midline, no swelling. Throat: Normal phonation. Eyes:, no erythema, no purulent discharge, no proptosis, no icterus. Heart: regular rate, regular rhythm, no significant murmur appreciated. Lungs: no apparent respiratory distress, Able to speak in full sentences. No wheezing, no rhonchi, no crackles. No stridors Clear to auscultation bilaterally. Abdomen: non tender to palpation, non distended, soft, no guarding, no rebound, + bowel sounds. Neuro: Awake, Alert, oriented to name, self, situation, follows commands GCS=15. Speech is normal. Skin: no petechia, no purpura, no cyanosis, non-pale, not jaundice. Lower extremities: --no - Pitting edema no deformity, no focal swelling, no calf TTP. Makes eye contact. moves all four extremities. Face: no apparent facial droop. Ambulating in the ED independently. ED COURSE: Chief Complaint: High Blood Pressure Time Seen by MD: 15:40 Primary Care Provider: CANDIS Reviewed Notes: Nurses Notes, Medications, Allergies Allergies: Coded Allergies: Nifedipine (Verified Allergy, Severe, 12/11/17) Hydrocodone (Verified Allergy, Unknown, 10/11/18) Home Meds Active Scripts Meclizine HCl (Meclizine 25) 25 Mg Tab, 25 MG PO 6XD PRN, #30 TAB Prov:SRI GRIFFIN MD 02/24/24 Primidone (MYSOLINE TABLET) 50 Mg Tb, 100 MG PO BID for 14 Days, #56 TAB Prov:FRANCES GUERRA MD 12/16/22 Reported Medications Albuterol Sulfate (Albuterol Sulfate Hfa) 108 Mcg/Act Aer, 2 PUFF INH Q4HR PRN for SHORTNESS OF BREATH/WHEEZING for 16 Days, #18 10/24/24 Rosuvastatin Calcium (Rosuvastatin Calcium) 20 Mg Tab, 1 TAB PO DAILY for 90 Days, #90 10/24/24 Ergocalciferol (Vitamin D) 50,000 Unit Cap, 1 CAP PO QWEEKLY for 84 Days, #12 10/24/24 Cyanocobalamin (Vitamin B-12) 1,000 Mcg Tab, 1 TAB PO DAILY for 90 Days, #90 10/24/24 Yxwka-0-Wsfw Ethyl Esters (Cqnaa-1-Cbcb Ethyl Esters) 1 Gm Cap, 2 CAP PO BID for 90 Days, #360 10/24/24 Metformin Hydrochloride (Metformin Hcl Er) 500 Mg Tab, 1 TAB PO QAM for 90 Days, #90 10/24/24 Potassium Chloride (Potassium Chloride ER) 10 Meq Tab, 1 TAB PO DAILY for 14 Days, #14 10/24/24 Losartan Potassium (Losartan Potassium) 50 Mg Tab, 1 TAB PO DAILY for 90 Days, #90 10/24/24 Sertraline Hcl (Sertraline Hcl) 50 Mg Tab, 1 TAB PO DAILY for 90 Days, #90 10/22/24 Magnesium Oxide (MAGNESIUM OXIDE) 400 Mg Tab, 1 TAB PO BID for 30 Days, #60 10/22/24 Metoprolol Tartrate (Metoprolol Tartrate) 25 Mg Tab, 1 TAB PO BID for 90 Days, #180 10/17/18 Aspirin (Aspir-Low) 81 Mg Tab, 81 MG PO DAILY for 30 Days, MG 10/17/18 Allopurinol (Allopurinol) 300 Mg Tab, 1 TAB PO DAILY for 90 Days, #90 09/22/18 Senna (Senna Lax) 8.6 Mg Tab, 8.6 MG PO Q12HR, MG 09/22/18 Propranolol HCl (Propranolol Hydrochloride) 20 Mg Tab, 20 MG PO BID, TAB 09/22/18 Information Source: Patient Mode of Arrival: Ambulatory Severity: Mild Timing: Hours Duration: Since onset Prehospital treatment: None Onset: At Rest Cardiac Risk Factors: HTN PE Risk Factors: None History of: None Modifying Factors: Nothing Associated Signs and Symptoms: Other Was a procedure done? Was a procedure done?: No CP Differential Dx Differential Diagnosis: N/A Differential Diagnosis: Other (DDX include renal disease, thyroid disease, electrolyte abnormality, increased salt intake, medications non-compliance, un diagnosed HTN, Hypertensive crisis, hypertensive urgency., drug toxicity.) Differential Diagnosis: Other (As far as the headache. DDX include Sinusitis, migraine, meningitis, hypertension, intracranial mass/bleed, stroke, radiculopat hy, vertebrobasillary insufficiency, cephalgia, pseudotumor cerebri, cerebellar ischemia/infarct, carotid stenosis, lacunar infarct, vertebral/carotid artery dissection, hydrocephalus, temporal arteritis, dura venous sinus thrombosis.) X-Ray, Labs, Meds, VS Vital Signs Date Time Temp Pulse Resp B/P (MAP) Pulse Ox O2 Delivery O2 Flow Rate FiO2 10/31/24 22:03 148/92 10/31/24 21:41 178/91 10/31/24 21:19 98.8 81 16 178/91 (120) 96 98.8 10/31/24 16:24 66 10/31/24 15:15 98.9 77 20 173/80 (111) 95 98.9 Lab Test 10/31/24 18:14 10/31/24 16:25 10/31/24 15:24 Range/Units Troponin I High Sensitivity 4 3 L </=34 ng/L Urine Color Colorless Yellow Urine Clarity Clear Clear Urine pH 7.0 5.0-9.0 Urine Specific Hyrum 1.009 1.001-1.035 Urine Protein Negative Negative Urine Ketones Negative Negative Urine Blood Negative Negative /uL Urine Nitrite Negative Negative Urine Bilirubin Negative Negative Urine Urobilinogen Normal Negative mg/dL Urine Leukocyte Esterase Negative Negative /uL Urine RBC <1 0 - 4 /hpf Urine Microscopic WBC 1 0-5 /HPF Urine Squamous Epithelial Cells Few <5 /hpf Urine Bacteria None seen None Seen /hpf Urine Glucose Normal Normal mg/dL White Blood Count 5.0 4.4-10.8 10^3/uL Red Blood Count 4.57 4.0-5.20 10^6/uL Hemoglobin 14.4 12.2-16.2 g/dL Hematocrit 42.7 36.0-46.0 % Mean Corpuscular Volume 93.6 80.0-100.0 fL Mean Corpuscular Hemoglobin 31.4 28.0-32.0 pg Mean Corpuscular Hemoglobin Concent 33.6 32.0-36.0 g/dL Red Cell Distribution Width 14.7 H 11.8-14.3 % Platelet Count 121 L 140-450 10^3/uL Mean Platelet Volume 9.0 6.9-10.8 fL Neutrophils (%) (Auto) 68.2 37.0-80.0 % Lymphocytes (%) (Auto) 22.9 10.0-50.0 % Monocytes (%) (Auto) 6.9 0.0-12.0 % Eosinophils (%) (Auto) 1.4 0.0-7.0 % Basophils (%) (Auto) 0.6 0.0-2.0 % Neutrophils # (Auto) 3.4 1.6-8.6 10 ^3/uL Lymphocytes # (Auto) 1.2 0.4-5.4 10 ^3/uL Monocytes # (Auto) 0.3 0-1.3 10 ^3/uL Eosinophils # (Auto) 0.1 0-0.8 10 ^3/uL Basophils # (Auto) 0 0-0.2 10 ^3/uL Nucleated Red Blood Cells 0.0 % Sodium Level 141 136-145 mmol/L Potassium Level 3.8 3.5-5.1 mmol/L Chloride Level 105 98-107 mmol/L Carbon Dioxide Level 26 20-31 mmol/L Anion Gap 10 5-15 Blood Urea Nitrogen 12 9-23 mg/dL Creatinine 0.74 0.550-1.02 mg/dL Glomerular Filtration Rate Calc 84 >90 mL/min BUN/Creatinine Ratio 16.2 10.0-20.0 Serum Glucose 113 H 74-106 mg/dL Calcium Level 10.6 H 8.7-10.4 mg/dL Total Bilirubin 0.6 0.2-1.0 mg/dL Aspartate Amino Transferase (AST) 25 13-40 U/L Alanine Aminotransferase (ALT) 29 7-40 U/L Alkaline Phosphatase 65 46-116 U/L Total Protein 7.3 5.7-8.2 g/dL Albumin 4.5 3.2-4.8 g/dL Current Medications Medications (Trade) Dose Ordered Sig/[place] Route Start Time Stop Time Status Last Admin Aspirin (Ecotrin Enteric Coated Tablet) 325 mg ONCE ONCE PO 10/31/24 17:15 10/31/24 17:16 DC 10/31/24 21:39 Nitroglycerin (Ntrostat Sublingual) 0.4 mg ONCE ONCE SL 10/31/24 17:15 10/31/24 17:16 DC 10/31/24 21:41 Ketorolac Tromethamine (Toradol Injection) 15 mg ONCE ONCE IM 10/31/24 22:15 10/31/24 22:20 DC 10/31/24 22:[address] [address] Ph: [phone] DIAGNOSTIC IMAGING Diagnostic Imaging Report : [id number] Signed PATIENT: TONIO BURCH ACCT: [id number] UNIT: [id number] : 1950 LOC: ER ROOM / BED: / AGE / SEX: 74 / F ADM STATUS: REG ER SERVICE 1514 ORDERING PHYSICIAN: MARIANNE VALDOVINOS DO PROCEDURE(s): CXRP - CHEST PORTABLE REASON: HTN ORDER NUMBER(s): [id number], ACCESSION NUMBER(s): [id number] INDICATION: HTN TECHNIQUE: Frontal view of the chest. COMPARISON: XY CHEST PORTABLE on DOS: 12/18/22, XY CHEST PORTABLE on DOS: 12/16/22, CHEST PORTABLE on DOS: 06/25/22, CXRP on DOS: 06/25/22, EKG on DOS: 05/13/22 FINDINGS: . The heart and mediastinal contours are grossly unremarkable. There is no evidence of pleural disease. The lungs are clear. The bony structures of the chest are intact without fracture. IMPRESSION: 1. No evidence of acute disease. ATED BY: ARPAN LUCERO MD DICTATED DATE/TIME: 10/31/241606 SIGNED BY: ARPAN LUCERO MD SIGNED DATE/TIME: 10/31/241606 CC: [place] [address] Ph: [phone] DIAGNOSTIC IMAGING Diagnostic Imaging Report : [id number] Signed PATIENT: TONIO BURCH ACCT: [id number] UNIT: [id number] : 1950 LOC: ER ROOM / BED: / AGE / SEX: 74 / F ADM STATUS: REG ER SERVICE 1539 ORDERING PHYSICIAN: MARIANNE VALDOVINOS DO PROCEDURE(s): HWOCT - HEAD WITHOUT CONTRAST REASON: ROSS HTN ORDER NUMBER(s): [id number], ACCESSION NUMBER(s): [id number] EXAM: CT HEAD WITHOUT CONTRAST; DATE: 10/31/2024 03:42 PM HISTORY: ROSS HTN COMPARISON: CT HEAD WITHOUT CONTRAST on DOS: 4/7/25, CT HEAD WITHOUT CONTRAST on DOS: 02/24/24, HEAD WITHOUT CONTRAST on DOS: 05/13/22 TECHNIQUE: Axial images were obtained and reformatted in coronal and sagittal planes. All CT scans at this medical facility are performed using dose modulation techniques as appropriate to a performed exam including the following: Automated exposure control was utilized; adjustment of the MA and/or KV according to patient size; and use of iterative reconstruction technique. CT Dose: CTDI volume is 54 mGy. Dose-length product is 1069 mGy*cm FINDINGS: Supratentorial Region: No evidence for large acute territorial ischemia. No intracranial hemorrhage is noted. Posterior Fossa: No acute abnormality. Brainstem: Unremarkable. Sellar/Suprasellar Region: Unremarkable. Ventricles, Cisterns, Sulci: Age-appropriate. Orbits: Unremarkable. Paranasal Sinuses: Mild paranasal sinus mucosal thickening. Trace fluid in the left sphenoid sinus. Partial absence of the osseous nasal septum and the septum between the right and left sphenoid sinus the left sphenoid sinus posterior left ethmoid air cells. Mastoid Air Cells: Unremarkable. Vasculature: Unremarkable. Bones/Soft Tissues: No acute abnormality. Other: None. IMPRESSION: 1. No acute intracranial process. ATED BY: YASMEEN OROSCO MD DICTATED DATE/TIME: 10/31/241648 SIGNED BY: YASMEEN OROSCO MD SIGNED DATE/TIME: 10/31/241648 CC: Time of 1ST Reevaluation: 16:10 Reevaluation 1ST: Unchanged Time of 2ND Reevaluation: 23:03 (It turns out that patient has not been taking hydralazine as she is supposed to.) Reevaluation 2ND: Resolved Patient Education/Counseling: Diagnosis, Treatment Family Education/Counseling: No Family Present Comments Patient presented with the above HPI.---headache in the setting of hypertension---workup was initiated. patient was found with the above mentioned diagnosis. the following medications were ordered: please refer to order lists of meds and tests obtained by myself Dr. Valdovinos. Patient ED course and VS have been stabilized. Patient has been reassessed in the ED and remained in a stable condition. Pertinent incidental findings were discussed with the patient and/or family. Patient/family voices understanding and is agreeable with plan. Patient has been observed in the ED adequate length of time to insure improvement/stability. Escalation of care considered: Consideration of escalation to observation or admission Patient was DISCHARGED home in a stable condition. All the reports of any imaging studies that were ordered by myself were reviewed by myself. Departure 1 Departure Time of Disposition: 23:04 Impression: Primary Impression: Hypertensive urgency Additional Impressions: Noncompliance with medications Headache Disposition: 01 HOME / SELF CARE / HOMELESS Condition: Stable Additional Instructions: Additional instructions: You MUST follow-up with your primary care/family doctor in 1 to 2 days. If you are unable to see your primary care/family doctor, please return to our emergency room for re-assessment and re-evaluation in 1 to 2 days. Return to the emergency room here in our facility or to the nearest ER [facility] if your symptoms change or worsen. CONSULTATIONS: you MUST Follow-up for consultation as soon as possible with: -cardiology in 1-2 days. Please call for appointment. You MUST call the consultants office yourself to make an appointment. You may need to arrange that through your insurance and/or your primary/family doctor. If you are unable to see the oracle application consultant in 1 to 2 days, you must return to our emergency room (or any other ER of your choice) for re-assessment and re- evaluation. Adequate fluid hydration. Monitor blood pressure at home at least 3 times a day. Please compliant with the medications. Below is a copy of your radiological report for follow up: [place] [address] Ph: [phone] DIAGNOSTIC IMAGING Diagnostic Imaging Report : [id number] Signed PATIENT: TONIO BURCH ACCT: [id number] UNIT: [id number] : 1950 LOC: ER ROOM / BED: / AGE / SEX: 74 / F ADM STATUS: REG ER SERVICE 1514 ORDERING PHYSICIAN: MARIANNE VALDOVINOS DO PROCEDURE(s): CXRP - CHEST PORTABLE REASON: HTN ORDER NUMBER(s): [id number], ACCESSION NUMBER(s): [id number] INDICATION: HTN TECHNIQUE: Frontal view of the chest. COMPARISON: XY CHEST PORTABLE on DOS: 6/3/23, XY CHEST PORTABLE on DOS: 12/16/22, CHEST PORTABLE on DOS: 06/25/22, CXRP on DOS: 06/25/22, EKG on DOS: 05/13/22 FINDINGS: . The heart and mediastinal contours are grossly unremarkable. There is no angélica dence of pleural disease. The lungs are clear. The bony structures of the chest are intact without fracture. IMPRESSION: 1. No evidence of acute disease. ATED BY: ARPAN LUCERO MD DICTATED DATE/TIME: 10/31/241606 SIGNED BY: ARPAN LUCERO MD SIGNED DATE/TIME: 10/31/241606 CC: [place] [address] Ph: [phone] DIAGNOSTIC IMAGING Diagnostic Imaging Report : [id number] Signed PATIENT: TONIO BURCH ACCT: [id number] UNIT: [id number] : 1950 LOC: ER ROOM / BED: / AGE / SEX: 74 / F ADM STATUS: REG ER SERVICE 1539 ORDERING PHYSICIAN: MARIANNE VALDOVINOS DO PROCEDURE(s): HWOCT - HEAD WITHOUT CONTRAST REASON: ROSS HTN ORDER NUMBER(s): [id number], ACCESSION NUMBER(s): [id number] EXAM: CT HEAD WITHOUT CONTRAST; DATE: 10/31/2024 03:42 PM HISTORY: ROSS HTN COMPARISON: CT HEAD WITHOUT CONTRAST on DOS: 10/22/24, CT HEAD WITHOUT CONTRAST on DOS: 02/24/24, HEAD WITHOUT CONTRAST on DOS: 05/13/22 TECHNIQUE: Axial images were obtained and reformatted in coronal and sagittal planes. All CT scans at this medical facility are performed using dose modulation techniques as appropriate to a performed exam including the following: Automated exposure control was utilized; adjustment of the MA and/or KV according to patient size; and use of iterative reconstruction technique. CT Dose: CTDI volume is 54 mGy. Dose-length product is 1069 mGy*cm FINDINGS: Supratentorial Region: No evidence for large acute territorial ischemia. No intracranial hemorrhage is noted. Posterior Fossa: No acute abnormality. Brainstem: Unremarkable. Sellar/Suprasellar Region: Unremarkable. Ventricles, Cisterns, Sulci: Age-appropriate. Orbits: Unremarkable. Paranasal Sinuses: Mild paranasal sinus mucosal thickening. Trace fluid in the left sphenoid sinus. Partial absence of the osseous nasal septum and the septum between the right and left sphenoid sinus the left sphenoid sinus posterior left ethmoid air cells. Mastoid Air Cells: Unremarkable. Vasculature: Unremarkable. Bones/Soft Tissues: No acute abnormality. Other: None. IMPRESSION: 1. No acute intracranial process. ATED BY: YASMEEN OROSCO MD DICTATED DATE/TIME: 10/31/241648 SIGNED BY: YASMEEN OROSCO MD SIGNED DATE/TIME: 10/31/241648 CC: Discharged With: Self Critical Care Note Critical Care Time?: No Heart Score Heart Score: Heart Score Response (Comments) Value History Slightly Suspicious 0 EKG Normal 0 Age >65 2 Risk Factors 1 or 2 risk factors 1 Troponin Normal limit 0 Total 3 I personally scribed for MARIANNE VALDOVINOS DO ([email or web address]) on 10/31/24 at 15:55. Electronically submitted by Jeannine Ferrera ([employer]). I personally scribed for MARIANNE VALDOVINOS DO ([email or web address]) on 10/31/24 at 16:04. Electronically submitted by Jeannine Ferrera ([employer]). I personally scribed for MARIANNE VALDOVINOS DO ([email or web address]) on 10/31/24 at 16:52. Electronically submitted by Jeannine Ferrera ([employer]). I personally scribed for MARIANNE VALDOVINOS DO ([email or web address]) on 10/31/24 at 17:06. Electronically submitted by Jeannine Ferrera ([employer]). I personally scribed for MARIANNE VALDOVINOS DO ([email or web address]) on 10/31/24 at 19:44. El ectronically submitted by Ida Rivera ([email or web address]). MARIANNE VALDOVINOS DO Oct 31, 2024 15:55
[2024-10-31 15:57] LABS: Alanine Aminotransferase 29 U/L (7-40); Albumin 4.5 g/dL (3.2-4.8); Alkaline Phosphatase 65 U/L (46-116); Anion Gap 10 (5-15); Aspartate Aminotransferase 25 U/L (13-40); BUN/Creatinine Ratio 16.2 (10.0-20.0); Blood Urea Nitrogen 12 mg/dL (9-23); Carbon Dioxide 26 mmol/L (20-31); Chloride 105 mmol/L (98-107); Potassium 3.8 mmol/L (3.5-5.1); Sodium 141 mmol/L (136-145); Total Protein 7.3 g/dL (5.7-8.2)
[2024-10-31 15:58] LABS: Bilirubin, Total 0.6 mg/dL (0.2-1.0); Calcium 10.6 mg/dL (8.7-10.4); Glucose 113 mg/dL (74-106)
--- NOTE | 2024-10-31 16:09 | DVH ---
INDICATION: HTN TECHNIQUE: Frontal view of the chest. COMPARISON: XY CHEST PORTABLE on DOS: 12/18/22, XY CHEST PORTABLE on DOS: 12/16/22, CHEST PORTABLE on DOS : 06/25/22, CXRP on DOS: 06/25/22, EKG on DOS: 05/13/22 FINDINGS: . The heart and mediastinal contours are grossly unremarkable. There is no evidence of pleural disea se. The lungs are clear. The bony structures of the chest are intact without fracture. IMPRESSION: 1. No evidence of acute disease.
--- NOTE | 2024-10-31 16:26 | ECG ---
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
--- NOTE | 2024-10-31 16:51 | DVH ---
EXAM: CT HEAD WITHOUT CONTRAST; DATE: 10/31/2024 03:42 PM HISTORY: ROSS HTN COMPARISON: CT HEAD WITHOUT CONTRAST on DOS: 10/22/24, CT HEAD WITHOUT CONTRAST on DOS: 02/24/24, HEAD WI THOUT CONTRAST on DOS: 05/13/22 TECHNIQUE: Axial images were obtained and reformatted in coronal and sagittal planes. All CT scans at this medical facility are performed using dose modulation techniques as appropriate t o a performed exam including the following: Automated exposure control was utilized; adjustment of th e MA and/or KV according to patient size; and use of iterative reconstruction technique. CT Dose: CTDI volume is 54 mGy. Dose-length product is 1069 mGy*cm FINDINGS: Supratentorial Region: No evidence for large acute territorial ischemia. No intracranial hemorrhage is noted. Posterior Fossa: No acute abnormality. Brainstem: Unremarkable. Sellar/Suprasellar Region: Unremarkable. Ventricles, Cisterns, Sulci: Age-appropriate. Orbits: Unremarkable. Paranasal Sinuses: Mild paranasal sinus mucosal thickening. Trace fluid in the left sphenoid sinus. Partial absence of the osseous nasal septum and the septum between the right and left sphenoid sinus the left sphenoid sinus posterior left ethmoid air cells. Mastoid Air Cells: Unremarkable. Vasculature: Unremarkable. Bones/Soft Tissues: No acute abnormality. Other: None. IMPRESSION: 1. No acute intracranial process.
[2024-10-31 17:43] LABS: Urine Bacteria None Seen /hpf (None Seen)
[2024-10-31 18:18] LABS: Urine Blood Negative /uL (Negative); Urine Clarity Clear (Clear); Urine Color Colorless (Yellow); Urine Protein, UAD Negative (Negative); Urine Specific Gravity 1.009 (1.001-1.035); Urine Squamous Epithelial Cell FEW /hpf (<5); Urine Urobilinogen Normal (Negative); Urine WBC 1 /HPF (0-5)
[2024-10-31 21:19] VITALS: BP 178/91; PULSE 81; RESP 16; TEMP 98.8; O2SAT 96
[2024-10-31] MEDS: ASPirin-EC 325mg tab PO ONE (21:39)
[2024-10-31] MEDS: NITROGLYCERIN 0.4 MG SL TAB SL ONE (21:41)
[2024-10-31] MEDS: KETOROLAC TROMETH 60MG/2ML VIAL IM ONE ×2 (22:25→22:36)
== END 2024-11-01 00:03 | disposition home or self-care (01) ==
LOC: ER 14:58
DX: I16.0 Hypertensive urgency (principal); E78.5 Hyperlipidemia, unspecified; M19.90 Unspecified osteoarthritis, unspecified site; Z79.82 Long term (current) use of aspirin; Z79.84 Long term (current) use of oral hypoglycemic drugs; Z79.899 Other long term (current) drug therapy; Z91.148 Patient's other noncompliance with medication regimen for other reason; Z88.5 Allergy status to narcotic agent
CPT/HCPCS: 36415; 70450; 71045; 80053; 81001; 84484; 85025; 93005; 96372; 99285; J1885

== ENCOUNTER 2024-11-04 22:09 | Emergency (ER) | payer OTHER, MEDICAID ==
[~2024-11-04] VITALS: Ht 157.5 cm; Wt 72.4 kg
[2024-11-04 22:42] LABS: Basophils # (auto) 0.1 10 ^3/uL (0-0.2); Eosinophils # (auto) 0.1 10 ^3/uL (0-0.8); Eosinophils % (auto) 1.9 % (0.0-7.0); Hematocrit 41.8 % (36.0-46.0); Hemoglobin 14.3 g/dL (12.2-16.2); Lymphocytes # (auto) 1.2 10 ^3/uL (0.4-5.4); Lymphocytes % (auto) 23.8 % (10.0-50.0); Mean Corpuscular Hemoglobin 31.8 pg (28.0-32.0); Mean Corpuscular Hgb Conc. 34.3 g/dL (32.0-36.0); Mean Corpuscular Volume 92.6 fL (80.0-100.0); Monocytes # (auto) 0.3 10 ^3/uL (0-1.3); Monocytes % (auto) 6.1 % (0.0-12.0); Neutrophils # (auto) 3.5 10 ^3/uL (1.6-8.6); Neutrophils % (auto) 67.2 % (37.0-80.0); Nucleated Red Blood Cells % 0.1 %; Platelet Count (auto) 123 10^3/uL (140-450); Red Blood Cells 4.51 10^6/uL (4.0-5.20); Red Cell Distribution Width 15.1 % (11.8-14.3); White Blood Cell 5.2 10^3/uL (4.4-10.8)
--- NOTE | 2024-11-04 22:47 | ECG ---
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
[2024-11-04] MEDS: KETOROLAC TROMETH 30 MG/ML 1ML VIAL IM ONE (22:53)
[2024-11-04 23:00] LABS: Chloride 105 mmol/L (98-107); Potassium 3.8 mmol/L (3.5-5.1); Sodium 140 mmol/L (136-145)
[2024-11-04 23:01] LABS: Anion Gap 11 (5-15); Carbon Dioxide 24 mmol/L (20-31)
[2024-11-04 23:02] LABS: Calcium 9.9 mg/dL (8.7-10.4)
[2024-11-04 23:06] LABS: Blood Urea Nitrogen 12 mg/dL (9-23)
[2024-11-04 23:07] LABS: Glucose 115 mg/dL (74-106)
[2024-11-05 00:20] VITALS: TEMP 98.1
--- NOTE | 2024-11-05 00:38 | ED.PDOC ---
History of Present Illness HPI Comments 74-year-old female with history of hypertension, hyperlipidemia, diabetes, gout here today with complaints of hypotension after she took her blood pressure at home and found her systolic to be in the 190s. Patient denies any vision changes, numbness, weakness, or headaches. No head trauma. No recent illness. Patient states that she was seen here recently for the same thing and was given a shot of Toradol which significantly improved her symptoms and is here today requesting the same. I informed the patient that Toradol is a pain medication and, since she is pain-free, I would not typically recommend giving her a dose however the patient was insistent that this would be helpful for her. No smoking no alcohol no drugs. No chest pain or shortness a breath. No fevers or chills. No nausea, vomiting, diarrhea. No other pain or symptoms. Chief Complaint: High Blood Pressure Time Seen by MD: 22:16 Primary Care Provider: CAROL Allergies: Coded Allergies: Nifedipine (Verified Allergy, Severe, 12/11/17) Hydrocodone (Verified Allergy, Unknown, 10/11/18) Home Meds Active Scripts Meclizine HCl (Meclizine 25) 25 Mg Tab, 25 MG PO 6XD PRN, #30 TAB Prov:SRI GRIFFIN MD 02/24/24 Primidone (MYSOLINE TABLET) 50 Mg Tb, 100 MG PO BID for 14 Days, #56 TAB Prov:FRANCES GUERRA MD 12/16/22 Reported Medications Albuterol Sulfate (Albuterol Sulfate Hfa) 108 Mcg/Act Aer, 2 PUFF INH Q4HR PRN for SHORTNESS OF BREATH/WHEEZING for 16 Days, #18 10/24/24 Rosuvastatin Calcium (Rosuvastatin Calcium) 20 Mg Tab, 1 TAB PO DAILY for 90 Days, #90 10/24/24 Ergocalciferol (Vitamin D) 50,000 Unit Cap, 1 CAP PO QWEEKLY for 84 Days, #12 10/24/24 Cyanocobalamin (Vitamin B-12) 1,000 Mcg Tab, 1 TAB PO DAILY for 90 Days, #90 10/24/24 Piard-8-Tanw Ethyl Esters (Kvoup-0-Xfiv Ethyl Esters) 1 Gm Cap, 2 CAP PO BID for 90 Days, #360 10/24/24 Metformin Hydrochloride (Metformin Hcl Er) 500 Mg Tab, 1 TAB PO QAM for 90 Days, #90 10/24/24 Potassium Chloride (Potassium Chloride ER) 10 Meq Tab, 1 TAB PO DAILY for 14 Days, #14 10/24/24 Losartan Potassium (Losartan Potassium) 50 Mg Tab, 1 TAB PO DAILY for 90 Days, #90 10/24/24 Sertraline Hcl (Sertraline Hcl) 50 Mg Tab, 1 TAB PO DAILY for 90 Days, #90 10/22/24 Magnesium Oxide (MAGNESIUM OXIDE) 400 Mg Tab, 1 TAB PO BID for 30 Days, #60 10/22/24 Metoprolol Tartrate (Metoprolol Tartrate) 25 Mg Tab, 1 TAB PO BID for 90 Days, #180 10/17/18 Aspirin (Aspir-Low) 81 Mg Tab, 81 MG PO DAILY for 30 Days, MG 10/17/18 Allopurinol (Allopurinol) 300 Mg Tab, 1 TAB PO DAILY for 90 Days, #90 09/22/18 Senna (Senna Lax) 8.6 Mg Tab, 8.6 MG PO Q12HR, MG 09/22/18 Propranolol HCl (Propranolol Hydrochloride) 20 Mg Tab, 20 MG PO BID, TAB 09/22/18 Mode of Arrival: Ambulatory Past Medical History PAST MEDICAL HISTORY: Anxiety, Arthritis, Depression, Gout, High Lipids, HTN 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 Pertinent PACKING AND FINAL ASSEMBLY SUPERVISOR History Family History Family History: Reviewed,noncontributory to illness Social History Smoker: Non-Smoker Alcohol: Denies ETOH Use Drugs: Denies Drug Use Lives In: Home All Other Systems: Reviewed and Negative (Negative except as per HPI above) Physical Exam General Appearance: No Apparent Distress, Normal HEENT: Normal ENT Inspection, Pharynx Normal, TMs Normal Neck: Full Range of Motion, Non-Tender, Normal, Normal Inspection Respiratory: Chest Non-Tender, Lungs Clear, No Accessory Muscle Use, No Respiratory Distress, Normal Breath Sounds Cardiovascular: No Edema, No Murmur, No Gallop, Normal Peripheral Pulses, Regular Rate/Rhythm Breast Exam: Deferred Gastrointestinal: No Organomegaly, Non Tender, No Pulsatile Mass, Normal Bowel Sounds, Soft Genitalia: Deferred Pelvic: Deferred Rectal: Deferred Extremities: No calf tenderness, Normal capillary refill, Normal inspection, Normal range of motion, Non-tender, No pedal edema Musculoskeletal : Apperance: Normal Neurologic: Alert, chemical dependency counselor II-XII nml as Tested, No Motor Deficits, Normal Affect, Normal Mood, No Sensory Deficits Cerebellar Function: Normal Reflexes: Normal Skin: Dry, Normal Color, Warm Lymphatic: No Adenopathy Was a procedure done? Was a procedure done?: No EKG EKG : Pulse Rate (adult): 72 [place]: Normal Cardiac Rhythm: NSR ST: Normal Differential Dx Considerations may include: Hypertensive urgency, hypertensive emergency, anxiety, ACS, renal dysfunction, electrolyte abnormality X-Ray, Labs, Meds, VS Vital Signs Date Time Temp Pulse Resp B/P (MAP) Pulse Ox O2 Delivery O2 Flow Rate FiO2 11/05/24 02:06 75 16 145/75 11/05/24 01:42 75 16 145/75 (98) 98 11/05/24 00:43 194/94 11/05/24 00:38 72 11/05/24 00:20 98.1 75 22 190/88 (122) 99 98.1 11/05/24 00:20 75 22 99 Room Air 11/04/24 22:46 98.3 76 19 176/97 (123) 97 98.3 11/04/24 22:28 72 11/04/24 22:15 99.2 79 18 181/97 (125) 96 99.2 Lab Test 11/04/24 22:30 Range/Units White Blood Count 5.2 4.4-10.8 10^3/uL Red Blood Count 4.51 4.0-5.20 10^6/uL Hemoglobin 14.3 12.2-16.2 g/dL Hematocrit 41.8 36.0-46.0 % Mean Corpuscular Volume 92.6 80.0-100.0 fL Mean Corpuscular Hemoglobin 31.8 28.0-32.0 pg Mean Corpuscular Hemoglobin Concent 34.3 32.0-36.0 g/dL Red Cell Distribution Width 15.1 H 11.8-14.3 % Platelet Count 123 L 140-450 10^3/uL Mean Platelet Volume 8.8 6.9-10.8 fL Neutrophils (%) (Auto) 67.2 37.0-80.0 % Lymphocytes (%) (Auto) 23.8 10.0-50.0 % Monocytes (%) (Auto) 6.1 0.0-12.0 % Eosinophils (%) (Auto) 1.9 0.0-7.0 % Basophils (%) (Auto) 1.0 0.0-2.0 % Neutrophils # (Auto) 3.5 1.6-8.6 10 ^3/uL Lymphocytes # (Auto) 1.2 0.4-5.4 10 ^3/uL Monocytes # (Auto) 0.3 0-1.3 10 ^3/uL Eosinophils # (Auto) 0.1 0-0.8 10 ^3/uL Basophils # (Auto) 0.1 0-0.2 10 ^3/uL Nucleated Red Blood Cells 0.1 % Sodium Level 140 136-145 mmol/L Potassium Level 3.8 3.5-5.1 mmol/L Chloride Level 105 98-107 mmol/L Carbon Dioxide Level 24 20-31 mmol/L Anion Gap 11 5-15 Blood Urea Nitrogen 12 9-23 mg/dL Creatinine 0.80 0.550-1.02 mg/dL Glomerular Filtration Rate Calc 77 >90 mL/min BUN/Creatinine Ratio 15.0 10.0-20.0 Serum Glucose 115 H 74-106 mg/dL Calcium Level 9.9 8.7-10.4 mg/dL Troponin I High Sensitivity 7 </=34 ng/L Current Medications Medications (Trade) Dose Ordered Sig/[place] Route Start Time Stop Time Status Last Admin Ketorolac Tromethamine (Toradol Injection) 15 mg ONCE ONCE IM 11/04/24 22:30 11/04/24 22:31 DC 11/04/24 22:53 Hydralazine HCl (Apresoline Injection) 10 mg ONCE ONCE IV 11/05/24 00:30 11/05/24 00:31 DC 11/05/24 00:43 Morphine Sulfate 2 mg ONCE ONCE IV 11/05/24 02:00 11/05/24 02:01 DC 11/05/24 02:06 X-Ray, Labs, Meds, VS Comment 74-year-old female with a history of hypertension among other medical problems as above here today with complaints of hypertension and requesting a shot of Toradol. Vitals notable for hypertension but otherwise unremarkable. Physical exam as above without any acute findings including a normal neurologic exam. Labs overall reassuring without any significant electrolyte abnormalities, signs of renal dysfunction, and a negative troponin with an EKG without evidence of acute ischemia, doubt ACS. Patient was given a dose of Toradol and stated she felt much better by her blood pressure was still systolic in the 190s/she was given a dose of IV hydralazine. Time of 1ST Reevaluation: 00:37 Reevaluation 1ST: Improved Time of 2ND Reevaluation: 01:55 Reevaluation 2ND: Improved (Patient states she feels significantly improved. Systolic blood pressure in the 140s. Patient states her head is bothering her (she thinks because she has been sitting in the lobby listening to all the screaming) and she is requesting a "small" dose of morphine.) Time of 3RD Reevaluation: 02:22 Reevaluation 3RD: Improved (Patient states her symptoms are significantly improved. She is requesting Zofran because morphine made her a little nauseous but she's also requesting to go home. Patient's is at bedside ready to take the patient home.) Patient Education/Counseling: Diagnosis, Treatment, Prognosis, Need For Follow Up Family Education/Counseling: No Family Present Departure 1 Departure Time of Disposition: 02:24 Impression: Primary Impression: Hypertensive urgency Disposition: 01 HOME / SELF CARE / HOMELESS Condition: Stable Discharged With: Self, Spouse Critical Care Note Critical Care Time?: No Stability Stability form required: No Heart Score Heart Score: Heart Score Response (Comments) Value History N/A 0 EKG N/A 0 Age N/A 0 Risk Factors N/A 0 Troponin N/A 0 Total 0 ESSENCE CHENG MD Nov 05, 2024 00:38
[2024-11-05] MEDS: hydrALAZINE HCL 20 MG/ML VL IV ONE (00:43)
[2024-11-05 01:42] VITALS: O2SAT 98
[2024-11-05] MEDS: MORPHINE SULFATE INJ 2 MG/ml SYRG IV ONE (02:06)
[2024-11-05 02:46] VITALS: BP 141/77; PULSE 78; RESP 18
[2024-11-05] MEDS: ONDANSETRON HCL 4 MG/2 ML VIAL IV ONE (02:47)
[2024-11-06] MEDS ORDERED: LOSA100T14 PO (14:48)
== END 2024-11-05 03:02 | disposition home or self-care (01) ==
LOC: ER 22:09
DX: I16.0 Hypertensive urgency (principal); E11.9 Type 2 diabetes mellitus without complications; E78.5 Hyperlipidemia, unspecified; F32.A Depression, unspecified; F41.9 Anxiety disorder, unspecified; I10 Essential (primary) hypertension; M19.90 Unspecified osteoarthritis, unspecified site; Z79.82 Long term (current) use of aspirin; Z79.84 Long term (current) use of oral hypoglycemic drugs; Z79.899 Other long term (current) drug therapy; Z98.890 Other specified postprocedural states; Z88.5 Allergy status to narcotic agent; Z88.8 Allergy status to other drugs, medicaments and biological substances
CPT/HCPCS: 36415; 80048; 84484; 85025; 93005; 96372; 96374; 96375; 99285; J0360; J1885; J2270

== ENCOUNTER 2024-11-05 05:34 | Inpatient (IN) | payer OTHER, MEDICAID ==
[~2024-11-05] VITALS: Ht 157.5 cm; Wt 7.0 kg
--- NOTE | 2024-11-05 06:30 | ED.PDOC ---
HPI Comments 74 y.o female with PMHx of HTN, hyperlipidemia, gout and arthritis, presents to the ED for an evaluation of high blood pressure associated with generalized headache and SOB that started this morning. Patient reports blood pressure has been elevated for days and is unable to relieve her headache. Patient denies any dizziness, chest pain, nausea, vomiting, fever, or chills. Patient was seen here earlier today for same complaint, was discharged but never took blood pressure medication at home. Chief Complaint: High Blood Pressure Time Seen by MD: 06:16 Primary Care Provider: CAROL Reviewed Notes: Nurses Notes, Medications, Allergies Allergies: Coded Allergies: Nifedipine (Verified Allergy, Severe, 12/11/17) Hydrocodone (Verified Allergy, Unknown, 10/11/18) Home Meds Active Scripts Meclizine HCl (Meclizine 25) 25 Mg Tab, 25 MG PO 6XD PRN, #30 TAB Prov:SRI GRIFFIN MD 02/24/24 Primidone (MYSOLINE TABLET) 50 Mg Tb, 100 MG PO BID for 14 Days, #56 TAB Prov:FRANCES GUERRA MD 12/16/22 Reported Medications Albuterol Sulfate (Albuterol Sulfate Hfa) 108 Mcg/Act Aer, 2 PUFF INH Q4HR PRN for SHORTNESS OF BREATH/WHEEZING for 16 Days, #18 10/24/24 Rosuvastatin Calcium (Rosuvastatin Calcium) 20 Mg Tab, 1 TAB PO DAILY for 90 Days, #90 10/24/24 Ergocalciferol (Vitamin D) 50,000 Unit Cap, 1 CAP PO QWEEKLY for 84 Days, #12 10/24/24 Cyanocobalamin (Vitamin B-12) 1,000 Mcg Tab, 1 TAB PO DAILY for 90 Days, #90 10/24/24 Vxqna-2-Byat Ethyl Esters (Uzuxt-4-Eoxh Ethyl Esters) 1 Gm Cap, 2 CAP PO BID for 90 Days, #360 10/24/24 Metformin Hydrochloride (Metformin Hcl Er) 500 Mg Tab, 1 TAB PO QAM for 90 Days, #90 10/24/24 Potassium Chloride (Potassium Chloride ER) 10 Meq Tab, 1 TAB PO DAILY for 14 Days, #14 10/24/24 Losartan Potassium (Losartan Potassium) 50 Mg Tab, 1 TAB PO DAILY for 90 Days, #90 10/24/24 Sertraline Hcl (Sertraline Hcl) 50 Mg Tab, 1 TAB PO DAILY for 90 Days, #90 10/22/24 Magnesium Oxide (MAGNESIUM OXIDE) 400 Mg Tab, 1 TAB PO BID for 30 Days, #60 10/22/24 Metoprolol Tartrate (Metoprolol Tartrate) 25 Mg Tab, 1 TAB PO BID for 90 Days, #180 10/17/18 Aspirin (Aspir-Low) 81 Mg Tab, 81 MG PO DAILY for 30 Days, MG 10/17/18 Allopurinol (Allopurinol) 300 Mg Tab, 1 TAB PO DAILY for 90 Days, #90 09/22/18 Senna (Senna Lax) 8.6 Mg Tab, 8.6 MG PO Q12HR, MG 09/22/18 Propranolol HCl (Propranolol Hydrochloride) 20 Mg Tab, 20 MG PO BID, TAB 09/22/18 Information Source: Patient Mode of Arrival: Ambulatory Severity: Moderate Timing: Hours Duration: Since onset Onset: At Rest Cardiac Risk Factors: Hyperlipidemia, HTN PE Risk Factors: None History of: None Modifying Factors: Nothing Associated Signs and Symptoms: SOB Past Medical History PAST MEDICAL HISTORY: Anxiety, Arthritis, Depression, Gout, High Lipids, HTN 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 History Family History Family History: Reviewed,noncontributory to illness Social History Smoker: Non-Smoker Alcohol: Denies ETOH Use Drugs: Denies Drug Use Lives In: Home Constitutional: denies: chills, diaphoresis, fatigue, fever, malaise, sweats, weakness, others EENTM: denies: blurred vision, double vision, ear bleeding, ear discharge, ear drainage, ear pain, ear ringing, eye pain, eye redness, hearing loss, mouth pain, mouth swelling, nasal discharge, nose bleeding, nose congestion, nose pain, photophobia, tearing, throat pain, throat swelling, voice changes, others Respiratory: reports: shortness of breath; denies: cough, hemoptysis, orthopnea, SOB at rest, SOB with excertion, stridor, wheezing, others Cardiovascular: denies: chest pain, dizzy spells, diaphoresis, Dyspnea on exertion, edema, irregular heart beat, left arm pain, lightheadedness, palpitations, PND, syncope, others Gastrointestinal: denies: abdomen distended, abdominal pain, blood streaked bowels, constipated, diarrhea, dysphagia, difficulty swallowing, hematemesis, melena, nausea, poor appetite, poor fluid intake, rectal bleeding, rectal pain, vomiting, others Genitourinary: denies: abnormal vagina bleeding, burning, dyspareunia, dysuria, flank pain, frequency, hematuria, incontinence, pain, , vagina discharge, urgency, others Neurological: reports: headache; denies: dizziness, fainting, left sided numbness, left sided weakness, numbness, paresthesia, pre-existing deficit, right sided numbness, right sided weakness, seizure, speech problems, tingling, tremors, weakness, others Musculoskeletal: denies: back pain, gout, joint pain, joint swelling, muscle pain, muscle stiffness, neck pain, others Integumetry: denies: bruises, change in color, change in hair/nails, dryness, laceration, lesions, lumps, rash, wounds, others Allergic/Immunocompromised: denies: Difficulty Healing, Frequent Infections, H sean, Itching, others Hematologic/Lymphatic: denies: anemia, blood clots, easy bleeding, easy bruising, swollen glands, others Endocrine: denies: excessive hunger, excessive sweating, excessive thirst, excessive urination, flushing, intolerance to cold, intolerance to heat, unexplained weight gain, unexplained weight loss, others Psychiatric: denies: anxiety, bipolar disorder, depression, hopeless, panic disorder, schizophrenia, sleepless, suicidal, others All Other Systems: Reviewed and Negative Physical Exam General Appearance: Moderate Distress HEENT: Normal ENT Inspection, Pharynx Normal, TMs Normal Neck: Full Range of Motion, Non-Tender, Normal, Normal Inspection Respiratory: Chest Non-Tender, Lungs Clear, No Accessory Muscle Use, No Respiratory Distress, Normal Breath Sounds Cardiovascular: No Edema, No JVD, No Murmur, No Gallop, Normal Peripheral Pulses, Regular Rate/Rhythm Breast Exam: Deferred Gastrointestinal: No Organomegaly, Non Tender, No Pulsatile Mass, Normal Bowel Sounds, Soft Genitalia: Deferred Pelvic: Deferred Rectal: Deferred Extremities: No calf tenderness, Normal capillary refill, Normal inspection, Normal range of motion, Non-tender, No pedal edema Musculoskeletal : Apperance: Normal Neurologic: Alert, peripatologist II-XII nml as Tested, No Motor Deficits, Normal Affect, Normal Mood, No Sensory Deficits Cerebellar Function: Normal Reflexes: Normal Skin: Dry, Normal Color, Warm Peripheral Pulses: 3+ Radial (R), 3+ Radial (L) Lymphatic: No Adenopathy Was a procedure done? Was a procedure done?: No CP Differential Dx Differential Diagnosis: A-fib, A-Flutter, Angina, Anxiety / Panic Attack, Atrial Dysrhythmia, Electrolyte Disorder, N/A Differential Diagnosis: HTN Essential, HTN Accelerated, Medical NonCompliance X-Ray, Labs, Meds, VS Vital Signs Date Time Temp Pulse Resp B/P (MAP) Pulse Ox O2 Delivery O2 Flow Rate FiO2 11/05/24 07:48 82 153/69 (97) 11/05/24 07:28 Room Air* 0 21 11/05/24 07:26 86 153/87 11/05/24 05:45 98.1 101 18 182/95 (124) 97 98.1 Lab Test 11/05/24 07:35 11/05/24 06:44 Range/Units Urine Color Pending Urine Clarity Pending Urine pH Pending Urine Specific [place] Pending Urine Protein Pending Urine Ketones Pending Urine Blood Pending Urine Nitrite Pending Urine Bilirubin Pending Urine Urobilinogen Pending Urine Leukocyte Esterase Pending Urine RBC Pending Urine Microscopic WBC Pending Urine Squamous Epithelial Cells Pending Urine Bacteria Pending Urine Glucose Pending White Blood Count 5.2 4.4-10.8 10^3/uL Red Blood Count 4.47 4.0-5.20 10^6/uL Hemoglobin 14.4 12.2-16.2 g/dL Hematocrit 41.9 36.0-46.0 % Mean Corpuscular Volume 93.8 80.0-100.0 fL Mean Corpuscular Hemoglobin 32.2 H 28.0-32.0 pg Mean Corpuscular Hemoglobin Concent 34.3 32.0-36.0 g/dL Red Cell Distribution Width 14.7 H 11.8-14.3 % Platelet Count 126 L 140-450 10^3/uL Mean Platelet Volume 9.2 6.9-10.8 fL Neutrophils (%) (Auto) 65.5 37.0-80.0 % Lymphocytes (%) (Auto) 25.0 10.0-50.0 % Monocytes (%) (Auto) 6.8 0.0-12.0 % Eosinophils (%) (Auto) 1.9 0.0-7.0 % Basophils (%) (Auto) 0.8 0.0-2.0 % Neutrophils # (Auto) 3.4 1.6-8.6 10 ^3/uL Lymphocytes # (Auto) 1.3 0.4-5.4 10 ^3/uL Monocytes # (Auto) 0.4 0-1.3 10 ^3/uL Eosinophils # (Auto) 0.1 0-0.8 10 ^3/uL Basophils # (Auto) 0 0-0.2 10 ^3/uL Nucleated Red Blood Cells 0.0 % Sodium Level 140 136-145 mmol/L Potassium Level 3.5 3.5-5.1 mmol/L Chloride Level 104 98-107 mmol/L Carbon Dioxide Level 27 20-31 mmol/L Anion Gap 9 5-15 Blood Urea Nitrogen 13 9-23 mg/dL Creatinine 0.83 0.550-1.02 mg/dL Glomerular Filtration Rate Calc 73 >90 mL/min BUN/Creatinine Ratio 15.7 10.0-20.0 Serum Glucose 103 74-106 mg/dL Calcium Level 10.3 8.7-10.4 mg/dL Troponin I High Sensitivity 6 </=34 ng/L Patient alert. Complaining of dizziness. Blood pressure elevated. Saturation pristine on room air. Complaining of shortness a breath. Possibly will need echocardiogram. Was given labetalol. Possibly will need stress test. Risk factors for coronary artery disease. Reviewed her history. Explained to the patient. Continue monitoring. X-Ray, Labs, Meds, VS Comment CHEST RADIOGRAPH Indication: sob Technique: Single frontal view of the chest was obtained Comparison: XY CHEST PORTABLE on DOS: 10/31/24 FINDINGS: Lines and Tubes: None Lungs: No focal consolidation. Pleura: No effusion. No pneumothorax. Cardiomediastinal contours: Unremarkable Bones: No acute osseous abnormality. IMPRESSION: 1. No acute cardiopulmonary disease. Time of 1ST Reevaluation: 06:26 Reevaluation 1ST: Unchanged Patient Education/Counseling: Diagnosis, Treatment, Prognosis Family Education/Counseling: No Family Present Departure 1 Departure Time of Disposition: 06:43 Impression: Primary Impression: Hypertensive urgency Additional Impression: Autonomic disorder Disposition: ADMITTED INPATIENT Admit to: Med Surg Condition: Guarded Critical Care Note Critical Care Time?: No Stability Stability form required: No Heart Score Heart Score: Heart Score Response (Comments) Value History N/A 0 EKG N/A 0 Age N/A 0 Risk Factors N/A 0 Troponin N/A 0 Total 0 I personally scribed for JAYLEN BROWER MD ([email or web address]) on 11/05/24 at 06:30. Electronically submitted by Tereza Frank ([facility]). I personally scribed for JAYLEN BROWER MD ([email or web address]) on 11/05/24 at 08:08. Electronically submitted by Tereza Frank ([facility]). JAYLEN BROWER MD Nov 05, 2024 06:30
--- NOTE | 2024-11-05 06:53 | DVH ---
CHEST RADIOGRAPH Indication: sob Technique: Single frontal view of the chest was obtained Comparison: XY CHEST PORTABLE on DOS: 10/31/24 FINDINGS: Lines and Tubes: None Lungs: No focal consolidation. Pleura: No effusion. No pneumothorax. Cardiomediastinal contours: Unremarkable Bones: No acute osseous abnormality. IMPRESSION: 1. No acute cardiopulmonary disease.
[2024-11-05 07:26] LABS: Basophils # (auto) 0 10 ^3/uL (0-0.2); Basophils % (auto) 0.8 % (0.0-2.0); Eosinophils # (auto) 0.1 10 ^3/uL (0-0.8); Eosinophils % (auto) 1.9 % (0.0-7.0); Hematocrit 41.9 % (36.0-46.0); Hemoglobin 14.4 g/dL (12.2-16.2); Lymphocytes # (auto) 1.3 10 ^3/uL (0.4-5.4); Mean Corpuscular Hemoglobin 32.2 pg (28.0-32.0); Mean Corpuscular Hgb Conc. 34.3 g/dL (32.0-36.0); Mean Corpuscular Volume 93.8 fL (80.0-100.0); Monocytes # (auto) 0.4 10 ^3/uL (0-1.3); Monocytes % (auto) 6.8 % (0.0-12.0); Neutrophils # (auto) 3.4 10 ^3/uL (1.6-8.6); Neutrophils % (auto) 65.5 % (37.0-80.0); Platelet Count (auto) 126 10^3/uL (140-450); Red Blood Cells 4.47 10^6/uL (4.0-5.20); Red Cell Distribution Width 14.7 % (11.8-14.3); White Blood Cell 5.2 10^3/uL (4.4-10.8)
[2024-11-05] MEDS: LABETALOL HCL 20 MG/4 ML VL IV ONE (07:26)
[2024-11-05 07:28] LABS: Chloride 104 mmol/L (98-107); Potassium 3.5 mmol/L (3.5-5.1); Sodium 140 mmol/L (136-145)
[2024-11-05 07:29] LABS: Anion Gap 9 (5-15); Carbon Dioxide 27 mmol/L (20-31)
[2024-11-05 07:30] LABS: Calcium 10.3 mg/dL (8.7-10.4)
[2024-11-05 07:34] LABS: Blood Urea Nitrogen 13 mg/dL (9-23); Glucose 103 mg/dL (74-106)
[2024-11-05 07:35] LABS: BUN/Creatinine Ratio 15.7 (10.0-20.0)
[2024-11-05 08:20] LABS: Urine Bacteria FEW /hpf (None Seen); Urine Blood Negative /uL (Negative); Urine Clarity Clear (Clear); Urine Color Colorless (Yellow); Urine Protein, UAD Negative (Negative); Urine Specific Gravity 1.008 (1.001-1.035); Urine Squamous Epithelial Cell FEW /hpf (<5); Urine Urobilinogen Normal (Negative); Urine WBC 4 /HPF (0-5)
[2024-11-05] MEDS ORDERED: NITROGLYCERIN 0.4 MG SL TAB SL PRN (08:45)
[2024-11-05] MEDS ORDERED: DOCUSATE SOD 100 MG CAP PO PRN (08:45)
[2024-11-05] MEDS ORDERED: HYDROcodone-ACET 5/325MG TAB PO PRN (08:45)
[2024-11-05] MEDS ORDERED: ONDANSETRON HCL 4 MG/2 ML VIAL IV PRN (08:45)
[2024-11-05] MEDS ORDERED: MORPHINE SULFATE INJ 2 MG/ml SYRG IV PRN (08:45)
--- NOTE | 2024-11-05 09:10 | DVHHP2 ---
History of Present Illness Reason for Visit: High blood pressure History of Present Illness Alicia Gunter is a 74-year-old female with past medical history of gout, hypertension, hyperlipidemia, pre diabetes, arthritis, and anxiety, who came in with complaints of a headache and high blood pressure. Patient states she has been experiencing a headache and high blood pressure for 2 days. She has been seen at this hospital 4 times in the last 2 weeks for the same complaint. She has been seen by her primary care provider as well and her medications have been changed. She states she is compliant with her medications, but they aren't working. Patient also states she follows with cardiology as an outpatient, but she can not remember the name of her doctor. Cardiovascular: HTN, hyperipidemia Psych: Anxiety Musculoskeletal: Osteoarthritis Rheumatologic: Gout Past 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: (x 3) Smoke: No ALCOHOL: none Drugs: None Lives: with Family Domestic Violence: Neg Review of Systems Constitutional: Yes: Other (Headache); No: Fever, Chills, Sweats, Weakness, Malaise Eyes: No: Pain, Vision change, Conjunctivae inflammation, Eyelid inflammation, Other, Redness ENT: No: Ear pain, Ear discharge, Nose pain, Nose discharge, Nose congestion, Mouth pain, Mouth swelling, Throat pain, Throat swelling, Other Respiratory: No: Cough, Dry, Shortness of breath, SOB with excertion, Wheezing, Hemoptysis, Pleuritic Pain, Sputum, Wheezing, Other Cardiovascular: Other (Hypertension); No: Chest Pain, Palpitations, Orthopnea, Paroxysmal Noc. Dyspnea, Edema, Lt Headedness Gastrointestinal: No: Nausea, Vomiting, Abdominal Pain, Diarrhea, Constipation, Melena, Hematochezia, Other Genitourinary: No Dysuria, No Frequency, No Incontinence, No Hematuria, No Retention, No Other Musculoskeletal: No: other, neck pain, shoulder pain, arm pain, back pain, hand pain, leg pain, foot pain Skin: No: Rash, Lesions, Jaundice, Bruising, Other Neurological: No: Weakness, Numbness, Incoordination, Change in speech, Confusion, Seizures, Other Allergies: Coded Allergies: Nifedipine (Verified Allergy, Severe, 12/11/17) Hydrocodone (Verified Allergy, Unknown, 10/11/18) Exam Vital Signs Vital Signs Date Time Temp Pulse Resp B/P (MAP) Pulse Ox O2 Delivery O2 Flow Rate FiO2 4/21/25 07:48 82 153/69 (97) 11/05/24 07:28 Room Air* 0 21 11/05/24 05:45 98.1 18 97 98.1 General Appearance: Alert, Oriented X3, Cooperative, No acute distress, Other (Headache) HEENT: Atraumatic Respiratory: Clear to auscultation, Normal air movement Cardiovascular: Regular rate, Normal S1, Normal S2, No murmurs Abdominal: Normal bowel sounds, Soft, No tenderness Extremities: No clubbing, No cyanosis, No edema, Normal pulses Skin: No rashes, No breakdown, No significant lesion Neuro: Normal gait, Normal speech, Strength at 5/5 X4 ext, Normal tone Psych/Mental Status: Mental status NL, Mood NL Labs/Xrays Labs Test 11/05/24 08:15 11/05/24 07:35 11/05/24 06:44 Range/Units Troponin I High Sensitivity 6 </=34 ng/L Urine Color Colorless Yellow Urine Clarity Clear Clear Urine pH 6.0 5.0-9.0 Urine Specific [place] 1.008 1.001-1.035 Urine Protein Negative Negative Urine Ketones Negative Negative Urine Blood Negative Negative /uL Urine Nitrite Negative Negative Urine Bilirubin Negative Negative Urine Urobilinogen Normal Negative mg/dL Urine Leukocyte Esterase 1+ Negative /uL Urine RBC 1 0 - 4 /hpf Urine Microscopic WBC 4 0-5 /HPF Urine Squamous Epithelial Cells Few <5 /hpf Urine Bacteria Few H None Seen /hpf Urine Glucose Normal Normal mg/dL White Blood Count 5.2 4.4-10.8 10^3/uL Red Blood Count 4.47 4.0-5.20 10^6/uL Hemoglobin 14.4 12.2-16.2 g/dL Hematocrit 41.9 36.0-46.0 % Mean Corpuscular Volume 93.8 80.0-100.0 fL Mean Corpuscular Hemoglobin 32.2 H 28.0-32.0 pg Mean Corpuscular Hemoglobin Concent 34.3 32.0-36.0 g/dL Red Cell Distribution Width 14.7 H 11.8-14.3 % Platelet Count 126 L 140-450 10^3/uL Mean Platelet Volume 9.2 6.9-10.8 fL Neutrophils (%) (Auto) 65.5 37.0-80.0 % Lymphocytes (%) (Auto) 25.0 10.0-50.0 % Monocytes (%) (Auto) 6.8 0.0-12.0 % Eosinophils (%) (Auto) 1.9 0.0-7.0 % Basophils (%) (Auto) 0.8 0.0-2.0 % Neutrophils # (Auto) 3.4 1.6-8.6 10 ^3/uL Lymphocytes # (Auto) 1.3 0.4-5.4 10 ^3/uL Monocytes # (Auto) 0.4 0-1.3 10 ^3/uL Eosinophils # (Auto) 0.1 0-0.8 10 ^3/uL Basophils # (Auto) 0 0-0.2 10 ^3/uL Nucleated Red Blood Cells 0.0 % Sodium Level 140 136-145 mmol/L Potassium Level 3.5 3.5-5.1 mmol/L Chloride Level 104 98-107 mmol/L Carbon Dioxide Level 27 20-31 mmol/L Anion Gap 9 5-15 Blood Urea Nitrogen 13 9-23 mg/dL Creatinine 0.83 0.550-1.02 mg/dL Glomerular Filtration Rate Calc 73 >90 mL/min BUN/Creatinine Ratio 15.7 10.0-20.0 Serum Glucose 103 74-106 mg/dL Calcium Level 10.3 8.7-10.4 mg/dL CHEST RADIOGRAPH FINDINGS: Lines and Tubes: None Lungs: No focal consolidation. Pleura: No effusion. No pneumothorax. Cardiomediastinal contours: Unremarkable Bones: No acute osseous abnormality. IMPRESSION: 1. No acute cardiopulmonary disease. Assessment/Plan Assessment/Plan Assessment: Hypertensive urgency, Hyperlipidemia, Gout, Arthritis, Plan: Admit to Tele, PRN anti-hypertensives, Toradol for headache, Home medications reconciled, Plan discussed with: Patient Date of Service: Nov 05, 2024 Billing Provider: CHARO REBOLLAR Common Visit Codes: 95254-IBKFMND INP/OBS CARE (MOD) CHARO REBOLLAR Nov 05, 2024 09:10
[2024-11-05] MEDS ORDERED: hydrALAZINE HCL 20 MG/ML VL IV PRN (09:30)
[2024-11-05] MEDS ORDERED: KETOROLAC TROMETH 30 MG/ML 1ML VIAL IV PRN (09:30)
[2024-11-05] MEDS ORDERED: PATIENTS OWN MEDICATION (Rosuvastatin Calcium 1 TAB) PO SCH (10:00)
[2024-11-05] MEDS ORDERED: PATIENTS OWN MEDICATION (Magnesium Oxide 1 TAB) PO SCH (10:00)
[2024-11-05] MEDS ORDERED: PATIENTS OWN MEDICATION (Allopurinol 1 TAB) PO SCH (10:00)
[2024-11-05] MEDS ORDERED: CYANOCOBALAMIN PO SCH (10:00)
[2024-11-05] MEDS: LOSARTAN POTASSIUM 50 MG TAB PO SCH (10:45)
[2024-11-05] MEDS: ALLOPURINOL 100 MG TAB PO SCH (10:45)
[2024-11-05] MEDS: SERTRALINE HCL 50 MG TAB PO SCH (10:45)
[2024-11-05] MEDS: METOPROLOL TARTRATE 25 MG TAB PO SCH (10:46)
[2024-11-05] MEDS: PROPRANOLOL HCL 20 MG TAB PO SCH (10:46)
[2024-11-05] MEDS: MAGNESIUM OXIDE 400 MG TAB PO SCH (10:46)
[2024-11-05] MEDS: CYANOCOBALAMIN 500 MCG TAB PO SCH (10:46)
[2024-11-05 11:20] VITALS: RESP 18; O2SAT 96
[2024-11-05 12:07] VITALS: BP 151/82; PULSE 68; RESP 17; TEMP 98.1; O2SAT 95
[2024-11-05] MEDS: SODIUM CHLOR 0.9% PF (SALINE LOCK) 10ML VIAL/SYR IV SCH (14:00)
[2024-11-05] MEDS: ACETAMINOPHEN 325 MG TAB PO PRN (14:01)
[2024-11-05 16:51] VITALS: BP 149/76; PULSE 64; RESP 18; TEMP 97.9; O2SAT 96
[2024-11-05 18:10] VITALS: RESP 16
[2024-11-05 20:00] VITALS: PULSE 71; PULSE 72; RESP 20; O2SAT 95
[2024-11-05 21:00] VITALS: BP 154/85; PULSE 72; RESP 20; TEMP 97.9; O2SAT 95
[2024-11-05] MEDS: ATORVASTATIN 20 MG TAB PO SCH (22:23)
[2024-11-06] VITALS (10 sets, daily range): BP systolic 106–174; BP diastolic 58–89; PULSE 54–71; RESP 16–20; TEMP 36.7; O2SAT 94–99
[2024-11-06 07:01] LABS: Basophils # (auto) 0 10 ^3/uL (0-0.2); Basophils % (auto) 0.9 % (0.0-2.0); Eosinophils # (auto) 0.1 10 ^3/uL (0-0.8); Eosinophils % (auto) 3.2 % (0.0-7.0); Hematocrit 41.7 % (36.0-46.0); Hemoglobin 14.1 g/dL (12.2-16.2); Lymphocytes # (auto) 1.3 10 ^3/uL (0.4-5.4); Lymphocytes % (auto) 32.1 % (10.0-50.0); Mean Corpuscular Hgb Conc. 33.9 g/dL (32.0-36.0); Mean Corpuscular Volume 94.6 fL (80.0-100.0); Monocytes # (auto) 0.4 10 ^3/uL (0-1.3); Monocytes % (auto) 9.7 % (0.0-12.0); Neutrophils # (auto) 2.2 10 ^3/uL (1.6-8.6); Neutrophils % (auto) 54.1 % (37.0-80.0); Nucleated Red Blood Cells % 0.1 %; Platelet Count (auto) 126 10^3/uL (140-450); Red Blood Cells 4.41 10^6/uL (4.0-5.20); Red Cell Distribution Width 15.1 % (11.8-14.3); White Blood Cell 4.1 10^3/uL (4.4-10.8)
[2024-11-06 07:12] LABS: Alanine Aminotransferase 23 U/L (7-40); Alkaline Phosphatase 46 U/L (46-116); Anion Gap 9 (5-15); BUN/Creatinine Ratio 14.6 (10.0-20.0); Blood Urea Nitrogen 12 mg/dL (9-23); Calcium 10.2 mg/dL (8.7-10.4); Carbon Dioxide 27 mmol/L (20-31); Chloride 107 mmol/L (98-107); Glucose 98 mg/dL (74-106); Potassium 3.9 mmol/L (3.5-5.1); Sodium 143 mmol/L (136-145); Total Protein 6.8 g/dL (5.7-8.2)
[2024-11-06 07:13] LABS: Albumin 4.3 g/dL (3.2-4.8); Bilirubin, Total 0.9 mg/dL (0.2-1.0)
[2024-11-06 07:15] LABS: Aspartate Aminotransferase 12 U/L (13-40)
[2024-11-06] MEDS ORDERED: LOSA100T14 PO (14:48)
--- NOTE | 2024-11-06 14:51 | DVHDS2 ---
Discharge Summary Date of Admission Nov 05, 2024 at 08:40 Date of Discharge: Nov 06, 2024 Admitting Diagnosis Hypertensive crisis Labs/Diagnostic Data: Laboratory Results Test 11/06/24 06:26 11/05/24 08:15 11/05/24 07:35 White Blood Count 4.1 10^3/uL (4.4-10.8) Red Blood Count 4.41 10^6/uL (4.0-5.20) Hemoglobin 14.1 g/dL (12.2-16.2) Hematocrit 41.7 % (36.0-46.0) Mean Corpuscular Volume 94.6 fL (80.0-100.0) Mean Corpuscular Hemoglobin 32.0 pg (28.0-32.0) Mean Corpuscular Hemoglobin Concent 33.9 g/dL (32.0-36.0) Red Cell Distribution Width 15.1 % (11.8-14.3) Platelet Count 126 10^3/uL (140-450) Mean Platelet Volume 9.1 fL (6.9-10.8) Neutrophils (%) (Auto) 54.1 % (37.0-80.0) Lymphocytes (%) (Auto) 32.1 % (10.0-50.0) Monocytes (%) (Auto) 9.7 % (0.0-12.0) Eosinophils (%) (Auto) 3.2 % (0.0-7.0) Basophils (%) (Auto) 0.9 % (0.0-2.0) Neutrophils # (Auto) 2.2 10 ^3/uL (1.6-8.6) Lymphocytes # (Auto) 1.3 10 ^3/uL (0.4-5.4) Monocytes # (Auto) 0.4 10 ^3/uL (0-1.3) Eosinophils # (Auto) 0.1 10 ^3/uL (0-0.8) Basophils # (Auto) 0 10 ^3/uL (0-0.2) Nucleated Red Blood Cells 0.1 % Sodium Level 143 mmol/L (136-145) Potassium Level 3.9 mmol/L (3.5-5.1) Chloride Level 107 mmol/L (98-107) Carbon Dioxide Level 27 mmol/L (20-31) Anion Gap 9 (5-15) Blood Urea Nitrogen 12 mg/dL (9-23) Creatinine 0.82 mg/dL (0.550-1.02) Glomerular Filtration Rate Calc 75 mL/min (>90) BUN/Creatinine Ratio 14.6 (10.0-20.0) Serum Glucose 98 mg/dL (74-106) Calcium Level 10.2 mg/dL (8.7-10.4) Total Bilirubin 0.9 mg/dL (0.2-1.0) Aspartate Amino Transferase (AST) 12 U/L (13-40) Alanine Aminotransferase (ALT) 23 U/L (7-40) Alkaline Phosphatase 46 U/L (46-116) Total Protein 6.8 g/dL (5.7-8.2) Albumin 4.3 g/dL (3.2-4.8) Troponin I High Sensitivity 6 ng/L (</=34) Urine Color Colorless (Yellow) Urine Clarity Clear (Clear) Urine pH 6.0 (5.0-9.0) Urine Specific [place] 1.008 (1.001-1.035) Urine Protein Negative (Negative) Urine Ketones Negative (Negative) Urine Blood Negative /uL (Negative) Urine Nitrite Negative (Negative) Urine Bilirubin Negative (Negative) Urine Urobilinogen Normal mg/dL (Negative) Urine Leukocyte Esterase 1+ /uL (Negative) Urine RBC 1 /hpf (0 - 4) Urine Microscopic WBC 4 /HPF (0-5) Urine Squamous Epithelial Cells Few /hpf (<5) Urine Bacteria Few /hpf (None Seen) Urine Glucose Normal mg/dL (Normal) Other Laboratory Tests 11/06/24 06:26 Brief Hx & Hospital Course: History of Present Illness Alicia Gunter is a 74-year-old female with past medical history of gout, hypertension, hyperlipidemia, pre diabetes, arthritis, and anxiety, who came in with complaints of a headache and high blood pressure. Patient states she has been experiencing a headache and high blood pressure for 2 days. She has been seen at this hospital 4 times in the last 2 weeks for the same complaint. She has been seen by her primary care provider as well and her medications have been changed. She states she is compliant with her medications, but they aren't working. Patient also states she follows with cardiology as an outpatient, but she can not remember the name of her doctor.+ Course of hospitalization: Patient was blood pressure improved with Cozaar, metoprolol, as well as propranolol being placed in the patient. Given the patient's heart rate is 60, propranolol will be stopped at that time of discharge given it has not helped with her headache or tremors. Patient will continue with her current medications, we will be instructed to increase her Cozaar dose 100 mg p.o. daily instead of 50 mg p.o. daily. She was instructed to follow up with her PCP, Dr. Burris in 1-2 weeks. All questions answered. Physical examination General: Alert and Oriented x3. No acute distress. Well-nourished. Eyes: EOMI. Anicteric. HENT: Moist mucous membranes. Lungs: Clear to auscultation bilaterally. No accessory muscle use. Cardiovascular: Regular rate and rhythm. No murmur. No JVD. Abdomen: Soft, non-tender and non-distended. No palpable masses. Extremities: No edema. Non-tender. Skin: No rashes or lesions. Warm. Neurologic: No focal neurological deficits. CN II-XII grossly intact, but not individually tested. Psychiatric: Cooperative. Appropriate mood and affect. Total time spent with patient discussing and formulating plan of care: 35 minutes. This medical document was created using an electronic medical record system with [employer] dictation system. Although this document has been carefully reviewed, there may still be some phonetic and typographical errors. These areas are purely typographical due to imperfections of the software programs, and do not reflect any compromise in the patient's medical care. Condition at Discharge: Fair Final Diagnosis/Problems List Hypertensive crisis Secondary diagnosis: Depression Dyslipidemia Essential tremor Discharge Disposition: Home Discharge Instruct/Medications Diet: Cardiac 2g Na,low cholest Activity: No Restrictions, As Tolerated Follow Up/Referral: Dr. Burris in 1-2 weeks Medications: cozaar 100mg po daily Continue all other home medications 36 Discharge Statement: "Patient was advised to return to the ER or call 911 if any headaches, dizziness, shortness of breath, chest pain, abdominal pain, bleeding, fevers, or worsening of medical condition. Patient was counseled about treatment plan, medications, possible side effects, patientverbalized understanding. All questions were answered to the best of my ability. This discharge took greater then 30 minutes in planning, reviewing documentation, counseling the patient, and discussing with other team members." ASSESSMENT ASSESSMENT Assessment Hypertensive crisis Date of Service: Nov 06, 2024 Billing Provider: LUPILLO ARANGO NP Common Visit Codes: 47553-FSM/OBS DISCH DAY >30min LUPILLO ARANGO NP Nov 06, 2024 14:51
[2024-11-06] MEDS: cloNIDine HCL 0.1 MG TAB PO ONE (16:52)
[2024-11-06] MEDS ORDERED: LORazepam 0.5 MG TAB PO ONE (20:00)
== END 2024-11-06 22:30 | disposition home or self-care (01) | DRG 305 ==
LOC: ER 05:34 → OVERFLOW 08:40 → TELE-WESTW 17:58
PROVIDERS: ADMIT Nurse Practitioner Acute Care; ATTEND Nurse Practitioner Acute Care
DX: I16.0 Hypertensive urgency (principal); M10.9 Gout, unspecified; E78.5 Hyperlipidemia, unspecified; F41.9 Anxiety disorder, unspecified; F32.A Depression, unspecified; R25.1 Tremor, unspecified; I10 Essential (primary) hypertension; M19.09 Primary osteoarthritis, other specified site; Z88.5 Allergy status to narcotic agent; Z79.51 Long term (current) use of inhaled steroids; Z79.82 Long term (current) use of aspirin; Z79.84 Long term (current) use of oral hypoglycemic drugs; Z79.899 Other long term (current) drug therapy; Z88.8 Allergy status to other drugs, medicaments and biological substances; Z98.891 History of uterine scar from previous surgery
CPT/HCPCS: 36415; 71045; 80048; 80053; 81001; 84484; 85025; G0378

== ENCOUNTER 2024-12-21 11:34 | Emergency (ER) | payer OTHER, MEDICAID ==
[~2024-12-21] VITALS: Ht 157.5 cm; Wt 72.8 kg
[~2024-12-21 11:34] MED LIST changes: -ASPI-543 PO; +LOSA100T14 PO; -PROP1TAB53 PO
--- NOTE | 2024-12-21 12:01 | ED.PDOC ---
Musculoskeletal HPI Comments This is a 74 year old female presenting to the ED with chief complaint of bilateral hip pain. Patient reports that she suddenly started to experience bilateral hip pain that radiates down to her feet while driving to [place] 7 days ago, persisting since then. Patient relays that she has also had some increased weakness in her legs since then. Patient denies any numbness/tingling of extremities, chest pain, SOB, dizziness, N/V, or headache. Chief Complaint: Pelvic Pain Time Seen by MD: 11:59 Primary Care Provider: CAROL Reviewed Notes: Nurses Notes, Medications Allergies: Coded Allergies: Nifedipine (Verified Allergy, Severe, 12/11/17) Hydrocodone (Verified Allergy, Unknown, 10/11/18) Home Meds Active Scripts Losartan Potassium (Cozaar) 100 Mg Tab, 1 TAB PO DAILY for 30 Days, #30 TAB 5 Refills Prov:LUPILLO ARANGO [employer] 11/06/24 Meclizine HCl (Meclizine 25) 25 Mg Tab, 25 MG PO 6XD PRN, #30 TAB Prov:SRI GRIFFIN MD 02/24/24 Primidone (MYSOLINE TABLET) 50 Mg Tb, 100 MG PO BID for 14 Days, #56 TAB Prov:FRANCES GUERRA MD 12/16/22 Reported Medications Albuterol Sulfate (Albuterol Sulfate Hfa) 108 Mcg/Act Aer, 2 PUFF INH Q4HR PRN for SHORTNESS OF BREATH/WHEEZING for 16 Days, #18 10/24/24 Rosuvastatin Calcium (Rosuvastatin Calcium) 20 Mg Tab, 1 TAB PO DAILY for 90 Days, #90 10/24/24 Ergocalciferol (Vitamin D) 50,000 Unit Cap, 1 CAP PO QWEEKLY for 84 Days, #12 10/24/24 Cyanocobalamin (Vitamin B-12) 1,000 Mcg Tab, 1 TAB PO DAILY for 90 Days, #90 10/24/24 Ehvnw-2-Lrxp Ethyl Esters (Tsqer-5-Fswm Ethyl Esters) 1 Gm Cap, 2 CAP PO BID for 90 Days, #360 10/24/24 Metformin Hydrochloride (Metformin Hcl Er) 500 Mg Tab, 1 TAB PO QAM for 90 Days, #90 10/24/24 Potassium Chloride (Potassium Chloride ER) 10 Meq Tab, 1 TAB PO DAILY for 14 Days, #14 10/24/24 Losartan Potassium (Losartan Potassium) 50 Mg Tab, 1 TAB PO DAILY for 90 Days, #90 10/24/24 Sertraline Hcl (Sertraline Hcl) 50 Mg Tab, 1 TAB PO DAILY for 90 Days, #90 10/22/24 Magnesium Oxide (MAGNESIUM OXIDE) 400 Mg Tab, 1 TAB PO BID for 30 Days, #60 10/22/24 Metoprolol Tartrate (Metoprolol Tartrate) 25 Mg Tab, 1 TAB PO BID for 90 Days, #180 10/17/18 Allopurinol (Allopurinol) 300 Mg Tab, 1 TAB PO DAILY for 90 Days, #90 09/22/18 Senna (Senna Lax) 8.6 Mg Tab, 8.6 MG PO Q12HR, MG 09/22/18 Information Source: Patient Mode of Arrival: Ambulatory Location: Bilateral Extremity Location: Foot, Hip, Leg Timing: Days Prehospital treatment: None Severity: Moderate Able to Move Extremity: Yes Bear Weight: Limited Pain: Moderate Mechanism: Spontaneous Circumstances: Spontaneous Onset of Symptoms: Spontaneous Symptoms: Pain DVT Risk Factors: NONE History of: Arthritis Associated signs and symptoms: Leg pain, Hip pain, Foot pain Past Medical History PAST MEDICAL HISTORY: Anxiety, Arthritis, Depression, Gout, High Lipids, HTN Past Medical History (Other): Prediabetic 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: 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 (Other): Pituitary surgery [employer] History: No Pertinent [employer] History Family History Family History: Reviewed,noncontributory to illness, Family hx of DM Social History Smoker: Non-Smoker Alcohol: Denies ETOH Use Drugs: Denies Drug Use Lives In: Home Constitutional: reports: weakness; denies: chills, diaphoresis, fatigue, fever, malaise, sweats, others EENTM: denies: blurred vision, double vision, ear bleeding, ear discharge, ear drainage, ear pain, ear ringing, eye pain, eye redness, hearing loss, mouth pain, mouth swelling, nasal discharge, nose bleeding, nose congestion, nose pain, photophobia, tearing, throat pain, throat swelling, voice changes, others Respiratory: denies: cough, hemoptysis, orthopnea, SOB at rest, shortness of breath, SOB with excertion, stridor, wheezing, others Cardiovascular: denies: chest pain, dizzy spells, diaphoresis, Dyspnea on exertion, edema, irregular heart beat, left arm pain, lightheadedness, palpitations, PND, syncope, others Gastrointestinal: denies: abdomen distended, abdominal pain, blood streaked bowels, constipated, diarrhea, dysphagia, difficulty swallowing, hematemesis, melena, nausea, poor appetite, poor fluid intake, rectal bleeding, rectal pain, vomiting, others Genitourinary: denies: abnormal vagina bleeding, burning, dyspareunia, dysuria, flank pain, frequency, hematuria, incontinence, pain, , vagina discharge, urgency, others Neurological: denies: dizziness, fainting, headache, left sided numbness, left sided weakness, numbness, paresthesia, pre-existing deficit, right sided numbness, right sided weakness, seizure, speech problems, tingling, tremors, weakness, others Musculoskeletal: reports: others (Bilateral hip pain, bilateral foot pain); denies: back pain, gout, joint pain, joint swelling, muscle pain, muscle stiffness, neck pain Integumetry: denies: bruises, change in color, change in hair/nails, dryness, laceration, lesions, lumps, rash, wounds, others Allergic/Immunocompromised: denies: Difficulty Healing, Frequent Infections, Hives, Itching, others Hematologic/Lymphatic: denies: anemia, blood clots, easy bleeding, easy bruising, swollen glands, others Endocrine: denies: excessive hunger, excessive sweating, excessive thirst, excessive urination, flushing, intolerance to cold, intolerance to heat, unexplained weight gain, unexplained weight loss, others Psychiatric: denies: anxiety, bipolar disorder, depression, hopeless, panic disorder, schizophrenia, sleepless, suicidal, others All Other Systems: Reviewed and Negative Physical Exam General Appearance: Mild Distress HEENT: Normal ENT Inspection, Pharynx Normal, TMs Normal Neck: Full Range of Motion, Non-Tender, Normal, Normal Inspection Respiratory: Chest Non-Tender, Lungs Clear, No Accessory Muscle Use, No Respiratory Distress, Normal Breath Sounds Cardiovascular: No Edema, No JVD, No Murmur, No Gallop, Normal Peripheral Pulses, Regular Rate/Rhythm Breast Exam: Deferred Gastrointestinal: No Organomegaly, Non Tender, No Pulsatile Mass, Normal Bowel Sounds, Soft Genitalia: Deferred Pelvic: Deferred Rectal: Deferred Extremities: No calf tenderness, Normal capillary refill, Normal inspection, No rmal range of motion, Non-tender, No pedal edema Musculoskeletal : Location: Bilateral Extremity Location: Back Apperance: Normal Neurologic: Alert, ore storage drier II-XII nml as Tested, No Motor Deficits, Normal Affect, Normal Mood, No Sensory Deficits Cerebellar Function: Normal Reflexes: Normal Skin: Dry, Normal Color, Warm Lymphatic: No Adenopathy Was a procedure done? Was a procedure done?: No Differential Diagnosis EXT Differential Diagnosis: Fracture, Sprain, Dislocation X-Ray, Labs, Meds, VS Vital Signs Date Time Temp Pulse Resp B/P (MAP) Pulse Ox O2 Delivery O2 Flow Rate FiO2 12/21/24 13:21 98.5 65 17 128/74 (92) 95 98.5 12/21/24 13:21 65 17 95 Room Air 12/21/24 11:55 98.2 71 16 150/79 (102) 96 98.2 Lab Test 12/21/24 12:43 Range/Units Urine Color Colorless Yellow Urine Clarity Clear Clear Urine pH 5.0 5.0-9.0 Urine Specific [place] 1.006 1.001-1.035 Urine Protein Negative Negative Urine Ketones Negative Negative Urine Blood Negative Negative /uL Urine Nitrite Negative Negative Urine Bilirubin Negative Negative Urine Urobilinogen Normal Negative mg/dL Urine Leukocyte Esterase Negative Negative /uL Urine RBC <1 0 - 4 /hpf Urine Microscopic WBC 1 0-5 /HPF Urine Squamous Epithelial Cells Few <5 /hpf Urine Bacteria None seen None Seen /hpf Urine Glucose Normal Normal mg/dL Current Medications Medications (Trade) Dose Ordered Sig/[place] Route Start Time Stop Time Status Last Admin Tramadol HCl (Ultram) 50 mg ONCE ONCE PO 12/21/24 12:00 12/21/24 12:01 DC 12/21/24 13:30 The patient was given tramadol 50 mg by mouth The urine test is negative for infection The x-ray of the LS spine shows: FINDINGS/IMPRESSION: The lumbar vertebral body heights are maintained. Moderate to severe multilevel disc space narrowing with endplate sclerosis, anterior osteophytosis. Lumbar dextrocurvature. Moderate to severe neural foraminal stenosis at L5-S1. Chronic appearing T11 and T12 compression deformities with 20% loss height. If there is concern for acute thoracic spine fracture recommend obtaining MRI thoracic spine to evaluate. Pelvic vascular phleboliths. Aortic atherosclerotic disease. The patient is being discharged The patient is told to follow up with their primary care doctor Images Reviewed?: Images reviewed and evaluated by me Time of 1ST Reevaluation: 13:46 Reevaluation 1ST: Improved Patient Education/Counseling: Diagnosis, Treatment, Prognosis, Need For Follow Up Family Education/Counseling: No Family Present Additional Information Reviewed patient's previous visit(s): 11/05/24 for hypertensive urgency The following tests were ordered, and results were reviewed by me: Lumbar Spine XR, UA Additional information was gathered from interviewing the following independent historian: NONE I reviewed and agreed with the following test results read by other provider: Lumbar Spine XR I discussed treatments and results with medical personnel and: Patient Comprehensive systems review obtained and negative except for what is stated in the HPI. Departure 1 Departure Time of Disposition: 13:47 Impression: Primary Impression: Chronic back pain Qualified Codes: M54.42 - Lumbago with sciatica, left side; M54.41 - Lumbago with sciatica, right side; G89.29 - Other chronic pain Additional Impressions: Degenerative disc disease Qualified Codes: M51.35 - Other intervertebral disc degeneration, thoracolumbar region Compression fracture Disposition: HOME / SELF CARE / HOMELESS Condition: Fair Discharged With: Self Critical Care Note Critical Care Time?: No Stability Stability form required: No Heart Score Heart Score: Heart Score Response (Comments) Value History N/A 0 EKG N/A 0 Age N/A 0 Risk Factors N/A 0 Troponin N/A 0 Total 0 I personally scribed for TEA GOEL MD ([email or web address]) on 12/21/24 at 12:01. Elec tronically submitted by Ravi Coppola ([email or web address]). I personally scribed for TEA GOEL MD ([email or web address]) on 12/21/24 at 12:44. Elec tronically submitted by Ravi Coppola ([email or web address]). TEA GOEL MD Dec 21, 2024 12:01
--- NOTE | 2024-12-21 12:57 | DVH ---
Indication: pain Technique: 3 views lumbar spine Comparison: None FINDINGS/IMPRESSION: The lumbar vertebral body heights are maintained. Moderate to severe multilevel disc space narrowing with endplate sclerosis, anterior osteophytosis. Lumbar dextrocurvature. Moderate to severe neural foraminal stenosis at L5-S1. Chronic appearing T11 and T12 compression deformities with 20% loss height. If there is concern for acute thoracic spine fracture recommend obtaining MRI thoracic spine to evaluate. Pelvic vascular phleboliths. Aortic atherosclerotic disease.
[2024-12-21 13:11] LABS: Urine Bacteria None Seen /hpf (None Seen)
[2024-12-21 13:20] LABS: Urine Blood Negative /uL (Negative); Urine Clarity Clear (Clear); Urine Color Colorless (Yellow); Urine Protein, UAD Negative (Negative); Urine Specific Gravity 1.006 (1.001-1.035); Urine Squamous Epithelial Cell FEW /hpf (<5); Urine Urobilinogen Normal (Negative); Urine WBC 1 /HPF (0-5)
[2024-12-21 13:21] VITALS: BP 128/74; PULSE 65; RESP 17; TEMP 98.5; O2SAT 95
[2024-12-21] MEDS: traMADol HCL 50 MG TAB PO ONE (13:30)
== END 2024-12-21 13:57 | disposition home or self-care (01) ==
LOC: ER 11:34
DX: S22.9XXA Fracture of bony thorax, part unspecified, initial encounter for closed fracture (principal); M51.369 Other intervertebral disc degeneration, lumbar region without mention of lumbar back pain or lower extremity pain; M54.50 Low back pain, unspecified; I10 Essential (primary) hypertension; F32.A Depression, unspecified; F41.9 Anxiety disorder, unspecified; G89.29 Other chronic pain; M10.9 Gout, unspecified; M19.90 Unspecified osteoarthritis, unspecified site; Z79.84 Long term (current) use of oral hypoglycemic drugs; Z79.899 Other long term (current) drug therapy; Z88.5 Allergy status to narcotic agent; Z88.8 Allergy status to other drugs, medicaments and biological substances; X58.XXXA Exposure to other specified factors, initial encounter; Y93.89 Activity, other specified; Y92.89 Other specified places as the place of occurrence of the external cause; Y99.8 Other external cause status
CPT/HCPCS: 72100; 81001

== ENCOUNTER 2025-04-21 14:20 | Emergency (ER) | payer OTHER, MEDICAID ==
[~2025-04-21] VITALS: Ht 157.5 cm; Wt 73.6 kg
[2025-04-21 15:58] LABS: Hematocrit 44.0 % (36.0-46.0); Hemoglobin 15.5 g/dL (12.2-16.2); Mean Corpuscular Hemoglobin 32.1 pg (28.0-32.0); Mean Corpuscular Volume 91.3 fL (80.0-100.0); Nucleated Red Blood Cells % 0.1 %
[2025-04-21 16:04] LABS: Potassium 3.6 mmol/L (3.5-5.1)
[2025-04-21 16:05] LABS: Anion Gap 12 (5-15); Calcium 10.1 mg/dL (8.7-10.4); Carbon Dioxide 24 mmol/L (20-31)
--- NOTE | 2025-04-21 16:08 | ED.PDOC ---
History of Present Illness HPI Comments 75 y/o F, with PMHx of arthritis, anxiety, depression, HTN, and HLD presents to the ED for CC of hypertension. Patient states, she has had high blood pressure readings with associated symptoms of body-aches, nausea, and poor-appetite x1week. Patient further relays, that d/t symptoms she has had a poor appetite and has been unable to eat. Patient comments, that she has not slept in x2days. Upon arrival to the ED, patient has notable tremors and is unable to sit still for questioning. Patient denies chest pain, shortness of breath, palpitations, headache, or vomiting. No other symptoms or modifying factors are present at this time. Chief Complaint: High Blood Pressure Time Seen by MD: 15:50 Primary Care Provider: CAROL Reviewed Notes: Nurses Notes, Medications, Allergies Allergies: Coded Allergies: Nifedipine (Verified Allergy, Severe, 12/11/17) Hydrocodone (Verified Allergy, Unknown, 10/11/18) Home Meds Active Scripts Losartan Potassium (Cozaar) 100 Mg Tab, 1 TAB PO DAILY for 30 Days, #30 TAB 5 Refills Prov:LUPILLO ARANGO STOCK DEALER 11/06/24 Meclizine HCl (Meclizine 25) 25 Mg Tab, 25 MG PO 6XD PRN, #30 TAB Prov:SRI GRIFFIN MD 02/24/24 Primidone (MYSOLINE TABLET) 50 Mg Tb, 100 MG PO BID for 14 Days, #56 TAB Prov:FRANCES GUERRA MD 12/16/22 Reported Medications Albuterol Sulfate (Albuterol Sulfate Hfa) 108 Mcg/Act Aer, 2 PUFF INH Q4HR PRN for SHORTNESS OF BREATH/WHEEZING for 16 Days, #18 10/24/24 Rosuvastatin Calcium (Rosuvastatin Calcium) 20 Mg Tab, 1 TAB PO DAILY for 90 Days, #90 10/24/24 Ergocalciferol (Vitamin D) 50,000 Unit Cap, 1 CAP PO QWEEKLY for 84 Days, #12 10/24/24 Cyanocobalamin (Vitamin B-12) 1,000 Mcg Tab, 1 TAB PO DAILY for 90 Days, #90 10/24/24 Bjugf-8-Yetn Ethyl Esters (Bzwnc-7-[id number] Ethyl Esters) 1 Gm Cap, 2 CAP PO BID for 90 Days, #360 4/9/25 Metformin Hydrochloride (Metformin Hcl Er) 500 Mg Tab, 1 TAB PO QAM for 90 Days, #90 10/24/24 Potassium Chloride (Potassium Chloride ER) 10 Meq Tab, 1 TAB PO DAILY for 14 Days, #14 10/24/24 Losartan Potassium (Losartan Potassium) 50 Mg Tab, 1 TAB PO DAILY for 90 Days, #90 10/24/24 Sertraline Hcl (Sertraline Hcl) 50 Mg Tab, 1 TAB PO DAILY for 90 Days, #90 10/22/24 Magnesium Oxide (MAGNESIUM OXIDE) 400 Mg Tab, 1 TAB PO BID for 30 Days, #60 10/22/24 Metoprolol Tartrate (Metoprolol Tartrate) 25 Mg Tab, 1 TAB PO BID for 90 Days, #180 10/17/18 Allopurinol (Allopurinol) 300 Mg Tab, 1 TAB PO DAILY for 90 Days, #90 09/22/18 Senna (Senna Lax) 8.6 Mg Tab, 8.6 MG PO Q12HR, MG 09/22/18 Mode of Arrival: Ambulatory Severity: Moderate Timing: Weeks Duration: Since onset Past Medical History PAST MEDICAL HISTORY: Anxiety, Arthritis, Depression, Gout, High Lipids, HTN 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: PRODUCTION SUPPORT MANAGER History: No Pertinent PRODUCTION SUPPORT MANAGER History Family History Family History: Reviewed,noncontributory to illness, Family hx of DM Social History Smoker: Non-Smoker Alcohol: Denies ETOH Use Drugs: Denies Drug Use Lives In: Home Constitutional: denies: chills, diaphoresis, fatigue, fever, malaise, sweats, weakness, others EENTM: denies: blurred vision, double vision, ear bleeding, ear discharge, ear drainage, ear pain, ear ringing, eye pain, eye redness, hearing loss, mouth pain, mouth swelling, nasal discharge, nose bleeding, nose congestion, nose artemio n, photophobia, tearing, throat pain, throat swelling, voice changes, others Respiratory: denies: cough, hemoptysis, orthopnea, SOB at rest, shortness of breath, SOB with excertion, stridor, wheezing, others Cardiovascular: denies: chest pain, dizzy spells, diaphoresis, Dyspnea on exertion, edema, irregular heart beat, left arm pain, lightheadedness, palpitations, PND, syncope, others Gastrointestinal: denies: abdomen distended, abdominal pain, blood streaked bowels, constipated, diarrhea, dysphagia, difficulty swallowing, hematemesis, melena, nausea, poor appetite, poor fluid intake, rectal bleeding, rectal pain, vomiting, others Genitourinary: denies: abnormal vagina bleeding, burning, dyspareunia, dysuria, flank pain, frequency, hematuria, incontinence, pain, , vagina discharge, urgency, others Neurological: denies: dizziness, fainting, headache, left sided numbness, left sided weakness, numbness, paresthesia, pre-existing deficit, right sided numbness, right sided weakness, seizure, speech problems, tingling, tremors, weakness, others Musculoskeletal: reports: others (body-aches); denies: back pain, gout, joint pain, joint swelling, muscle pain, muscle stiffness, neck pain Integumetry: denies: bruises, change in color, change in hair/nails, dryness, laceration, lesions, lumps, rash, wounds, others Allergic/Immunocompromised: denies: Difficulty Healing, Frequent Infections, Hives, Itching, others Hematologic/Lymphatic: denies: anemia, blood clots, easy bleeding, easy bruising, swollen glands, others Endocrine: denies: excessive hunger, excessive sweating, excessive thirst, excessive urination, flushing, intolerance to cold, intolerance to heat, unexplained weight gain, unexplained weight loss, others Psychiatric: denies: anxiety, bipolar disorder, depression, hopeless, panic disorder, schizophrenia, sleepless, suicidal, others All Other Systems: Reviewed and Negative Physical Exam General Appearance: Mild Distress HEENT: Normal ENT Inspection, Pharynx Normal, TMs Normal Neck: Full Range of Motion, Non-Tender, Normal, Normal Inspection Respiratory: Chest Non-Tender, Lungs Clear, No Accessory Muscle Use, No Respiratory Distress, Normal Breath Sounds Cardiovascular: No Edema, No JVD, No Murmur, No Gallop, Normal Peripheral Pulses, Regular Rate/Rhythm Breast Exam: Deferred Gastrointestinal: No Organomegaly, Non Tender, No Pulsatile Mass, Normal Bowel Sounds, Soft Genitalia: Deferred Pelvic: Deferred Rectal: Deferred Extremities: No calf tenderness, Normal capillary refill, Normal inspection, Normal range of motion, Non-tender, No pedal edema Musculoskeletal : Apperance: Normal Neurologic: Alert, safety leader II-XII nml as Tested, No Motor Deficits, Normal Affect, Normal Mood, No Sensory Deficits Cerebellar Function: Normal Reflexes: Normal Skin: Dry, Normal Color, Warm Lymphatic: No Adenopathy Was a procedure done? Was a procedure done?: No Differential Dx Considerations may include: Hypertensive crisis, dehydration, electrolyte imbalance X-Ray, Labs, Meds, VS Vital Signs Date Time Temp Pulse Resp B/P (MAP) Pulse Ox O2 Delivery O2 Flow Rate FiO2 04/21/25 16:52 64 18 98 Room Air 04/21/25 16:52 98.2 64 18 150/70 (96) 98 98.2 04/21/25 16:52 150/70 04/21/25 14:22 98.1 76 16 159/89 95 98.1 Lab Test 04/21/25 15:49 Range/Units White Blood Count 4.9 4.4-10.8 10^3/uL Red Blood Count 4.82 4.0-5.20 10^6/uL Hemoglobin 15.5 12.2-16.2 g/dL Hematocrit 44.0 36.0-46.0 % Mean Corpuscular Volume 91.3 80.0-100.0 fL Mean Corpuscular Hemoglobin 32.1 H 28.0-32.0 pg Mean Corpuscular Hemoglobin Concent 35.2 32.0-36.0 g/dL Red Cell Distribution Width 14.6 H 11.8-14.3 % Platelet Count 147 140-450 10^3/uL Mean Platelet Volume 8.7 6.9-10.8 fL Neutrophils (%) (Auto) 48.7 37.0-80.0 % Lymphocytes (%) (Auto) 37.2 10.0-50.0 % Monocytes (%) (Auto) 10.8 0.0-12.0 % Eosinophils (%) (Auto) 2.4 0.0-7.0 % Basophils (%) (Auto) 0.9 0.0-2.0 % Neutrophils # (Auto) 2.4 1.6-8.6 10 ^3/uL Lymphocytes # (Auto) 1.8 0.4-5.4 10 ^3/uL Monocytes # (Auto) 0.5 0-1.3 10 ^3/uL Eosinophils # (Auto) 0.1 0-0.8 10 ^3/uL Basophils # (Auto) 0 0-0.2 10 ^3/uL Nucleated Red Blood Cells 0.1 % Sodium Level 128 L 136-145 mmol/L Potassium Level 3.6 3.5-5.1 mmol/L Chloride Level 92 L 98-107 mmol/L Carbon Dioxide Level 24 20-31 mmol/L Anion Gap 12 5-15 Blood Urea Nitrogen 9 9-23 mg/dL Creatinine 0.78 0.550-1.02 mg/dL Glomerular Filtration Rate Calc 79 >90 mL/min BUN/Creatinine Ratio 11.5 10.0-20.0 Serum Glucose 111 H 74-106 mg/dL Calcium Level 10.1 8.7-10.4 mg/dL The patient's CBC and chemistry panel are within normal limits The patient's blood pressure is now within normal limits we feel that this patient's symptoms were secondary to the hypertensive reaction The patient's blood pressure has now come down after she took her home medication The patient is discharged Time of 1ST Reevaluation: 16:20 Reevaluation 1ST: Unchanged Time of 2ND Reevaluation: 17:37 Reevaluation 2ND: Improved Patient Education/Counseling: Diagnosis, Treatment, Prognosis, Need For Follow Up Family Education/Counseling: No Family Present SEPSIS Sepsis Screen Date sepsis recognized/suspect: Apr 21, 2025 Time Sepsis recognized/suspect: 1421 Recent Procedure: No On Antibiotic Therapy: No Respiratory Rate >20: No Heart Rate >90: No Temp<36 C (96.8 F) or >38.3 C: No SBP <90 or MAP <65 mmHG: No New Acute Mental Status Change: No Is the patient on CPAP, BIPAP,: No Physician Orders Urinalysis (04/21/25 15:40) Heplock Iv (04/21/25 15:40) Vital Signs Date Time Temp Pulse Resp B/P (MAP) Pulse Ox O2 Delivery O2 Flow Rate FiO2 04/21/25 16:52 64 18 98 Room Air 04/21/25 16:52 98.2 64 18 150/70 (96) 98 98.2 04/21/25 16:52 150/70 04/21/25 14:22 98.1 76 16 159/89 95 98.1 Laboratory Tests Test 04/21/25 15:49 White Blood Count 4.9 10^3/uL (4.4-10.8) Departure 1 Departure Time of Disposition: 17:37 Impression: Primary Impression: Hypertensive urgency Disposition: 01 HOME / SELF CARE / HOMELESS Condition: Fair Discharged With: Self Critical Care Note Critical Care Time?: No Stability Stability form required: No Heart Score Heart Score: Heart Score Response (Comments) Value History N/A 0 EKG N/A 0 Age N/A 0 Risk Factors N/A 0 Troponin N/A 0 Total 0 I personally scribed for TEA GOEL MD ([email or web address]) on 04/21/25 at 16:08. Electronically submitted by Ida Rivera ([email or web address]). TEA OGEL MD Apr 21, 2025 16:08
[2025-04-21 16:10] LABS: BUN/Creatinine Ratio 11.5 (10.0-20.0)
[2025-04-21 16:16] LABS: Blood Urea Nitrogen 9 mg/dL (9-23); Chloride 92 mmol/L (98-107); Glucose 111 mg/dL (74-106); Sodium 128 mmol/L (136-145)
[2025-04-21 16:52] VITALS: BP 150/70; PULSE 64; RESP 18; TEMP 98.2; O2SAT 98
[2025-04-21] MEDS: SODIUM CHLORIDE 0.9% 1,000 ML IV ONE (17:05)
== END 2025-04-21 17:53 | disposition home or self-care (01) ==
LOC: ER 14:20
DX: I16.0 Hypertensive urgency (principal); F41.9 Anxiety disorder, unspecified; F32.A Depression, unspecified; E78.5 Hyperlipidemia, unspecified; I10 Essential (primary) hypertension; M10.00 Idiopathic gout, unspecified site; M19.90 Unspecified osteoarthritis, unspecified site; Z79.899 Other long term (current) drug therapy; Z98.890 Other specified postprocedural states; Z88.5 Allergy status to narcotic agent; Z79.84 Long term (current) use of oral hypoglycemic drugs
CPT/HCPCS: 36415; 80048; 85025